=== PATIENT | male | born 1955 | race Caucasian/White ===

== ENCOUNTER 2016-12-14 16:37 | Inpatient (IN) | payer BC ==
[~2016-12-14] VITALS: Ht 166.4 cm; Wt 61.3 kg
[2016-12-14 18:58] VITALS: BP 149/84
[2016-12-14] MEDS ORDERED: LIPASE/AMYLASE/PROTEASE (PANCRELIPASE) 5,000 UNITS CAP PO PRN (22:00)
[2016-12-14] MEDS ORDERED: DIPHENOXYLATE/ATROPINE 2.5MG/0.025MG (LOMOTIL) TAB PO PRN (22:00)
[2016-12-14] MEDS ORDERED: SERTRALINE 100 MG (ZOLOFT) TAB PO ONE (22:30)
[2016-12-14] MEDS ORDERED: MIRTAZAPINE 15 MG (REMERON) TAB PO ONE (22:30)
[2016-12-14] MEDS ORDERED: MIRTAZAPINE 15 MG (REMERON) TAB ONE (22:36)
[2016-12-14] MEDS ORDERED: SERTRALINE 50 MG (ZOLOFT) TABLET ONE (22:37)
[2016-12-14] MEDS: HYDROcodone/APAP 5 MG/325 MG (LORTAB) TAB PO PRN (22:55)
[2016-12-14] MEDS: DIPHENOXYLATE/ATROPINE 2.5MG/0.025MG (LOMOTIL) TAB PO PRN (23:00)
[2016-12-15] MEDS: LEVOTHYROXINE 25 MCG (LEVOTHROID) TAB PO SCH (05:44)
[2016-12-15] MEDS: LEVOTHYROXINE 150 MCG (LEVOTHROID) TAB PO SCH (05:44)
[2016-12-15] MEDS: LACTOBACILLUS Acidoph/Bulgar (LACTINEX/FLORANEX) TAB PO SCH ×3 (05:44→18:31)
[2016-12-15 05:45] VITALS: BP 150/84
[2016-12-15 05:55] LABS: MEAN PLATELET VOLUME 9.6 FL (7.4-10.4); RED BLOOD COUNT 3.92 10^6/uL (4.35-5.85); RED CELL DISTRIBUTION WIDTH 15.4 % (10.0-14.5); WHITE BLOOD COUNT 7.6 10^3/uL (4.3-11.0)
[2016-12-15 06:14] LABS: ALANINE AMINOTRANSFERASE 42 U/L (0-55); ANION GAP 9 MMOL/L (5-14); ASPARTATE AMINO TRANSFERASE 61 U/L (5-34); BILIRUBIN,TOTAL 0.7 MG/DL (0.1-1.0); BLOOD UREA NITROGEN 5 MG/DL (7-18); BUN/CREATININE RATIO 7; CARBON DIOXIDE 21 MMOL/L (21-32); CHLORIDE 112 MMOL/L (98-107); CREATININE SERUM 0.71 MG/DL (0.60-1.30); GFR ESTIMATED > 60; GLUCOSE 67 MG/DL (70-105); POTASSIUM 4.1 MMOL/L (3.6-5.0); SODIUM 142 MMOL/L (135-145); TOTAL PROTEIN 5.8 G/DL (6.4-8.2)
[2016-12-15] MEDS: LIPASE/AMYLASE/PROTEASE (PANCRELIPASE) 5,000 UNITS CAP PO SCH ×3 (06:49→18:32)
[2016-12-15] MEDS: FERROUS SULF 325 MG (IRON) TAB PO SCH ×3 (06:49→18:32)
[2016-12-15] MEDS: PANTOPRAZOLE 40 MG (PROTONIX) TAB PO SCH (06:49)
--- NOTE | 2016-12-15 08:46 | ST Cognitive Linguistic Eval ---
Speech Evaluation-General Medical Diagnosis Debility, Weakness Onset Date: December 14, 2016 Therapy Diagnosis Therapy Diagnosis: Moderate Cognitive Impairment Precautions Precautions/Isolations: Fall Prevention, Standard Precautions Referral Referring Physician: Dr. Ancelmo Fulton Reason for Referral: Evaluation/Treatment Cognitive Evaluation Medical History Hepatitis C Reviewed History: Yes (Limited past medical history found following chart review.) Speech PLF-Current Status Prior Level of Function The patient was unable to provide prior level of function information to the clinician. Subjective The patient was recently admitted to [facility] with a diagnosis of debility and weakness. The patient was sleeping upon entrance. The patient required maximum verbal prompting from clinician for continued participation in the evaluation. The patient frequently stated he was "tired" or would "get up in a little bit." The patient demonstrated poor motivation and cooperation with this clinician. Language Eval: Auditory Comprehends Simple Yes/No Ques: Moderate (The patient provided limited responses to the clinician, often closing eyes and placing his head under the covers.) Indent/Objects Multiple Ramey: Functional Ident/Pics in Multiple Ramey: Functional Follows 1-Step Commands: Mild (Frequent repetition was required for accuracy of one-step commands. ) Follows General Conversations: Moderate Additional evaluation with increased participation will be necessary to fully assess receptive language versus the patient's poor participation and motivation. Language Eval: Verbal Language Completes Spontaneous Greeting: Functional Produces Auto, Serial Info: Functional Imitates Simple Words/Phrases: Functional Word Finding: Moderate (The patient repeated the same "s" word several times with different animals placed behind it ("stinkin' cat, stinkin' rat). ) Requests Basic Needs: Mild States Basic Personal Info: Moderate Additional evaluation with increased participation will be necessary to fully assess expressive language versus the patient's poor participation and motivation. Cognitive Patient Orientation The patient was oriented to month and name only. The patient stated the year was 1986, the date was the , the day of the week was Monday, and he was at [employer] in [place]. Objective Cognitive Domain Attention: Severe Memory: Moderate (The patient was unable to recall three single words following a five minute interval.) Problem Solving: Moderate The patient refused to participate in reading or writing portions of the evaluation. The patient placed glasses on towards the end of the evaluation, however, stated, "I just don't think I'm ready" when repeatedly asked by clinician to complete clock-drawing activity. Objective Impression The patient demonstrated moderate cognitive impairments in the areas of attention, memory, and problem solving. The patient demonstrated poor participation and motivation throughout the evaluation, therefore, results may be skewed by patient's deferment of exercises. Full assessments will continue with increased participation of patient. Communication/Social Cognition Comprehension: 2 Expression: 3 Social Interaction: 1 Problem Solvin Memory: 2 Speech Patient Assess Expression of Ideas/Wants: Frequently (2) Understanding V[place]al Content: Sometimes Understands(2) Brief Interview-Mental Status: Yes Repetition of Three Words: Two (2) Temporal Orientation: Year: Missed by more than 5 yrs (0) Temporal Orientation: Month: Accurate within 5 days(2) Temporal Orientation: Day: Incorrect or No Answer(0) Recall : Wear to say "Sock": No, could not recall (0) Recall : Color: Yes, after cueing (1) Recall : Bed: No, could not recall (0) Speech Short Term Goals Short Term Goals Short Term Goals 1. The patient will participate in a full evaluation of cognitive function and receptive/expressive language. 2. The patient will demonstrate 80% accuracy with orientation information with use of the provided external aid. 3. The patient will display 80% accuracy with simple, one-step commands ( provided verbally) with mild clinician verbal cueing. Time Frame-STG: One Week Speech Half-Way Goals Half-Way Goals 1. The patient will demonstrate increased cognitive skills for improved safety and function with ADL's in the least restrictive setting. Time Frame: Three Weeks Comprehension: 4 Expression: 4 Social Interaction: 4 Problem Solvin Memory: 3 Speech-Plan Treatment Plan Speech Therapy Treatment Plan: Continue Plan of Care Continue skilled speech pathology to target cognitive function and expressive/ receptive language skills. Treatment Duration: January 05, 2017 # of days/week Four to Five Visits Per Week: Four to Five Minutes/Day (M-F): 30 Rehab Potential: Guarded (Poor participation and motivation) Safety Risks/Education Teaching Recipient: Patient Teaching Methods: Discussion Response to Teaching: Reinforcement Needed Education Topics Provided: Results, Recommendations, Plan of Care Time Speech Therapy Time In: 08:23 Speech Therapy Time Out: 08:38 Total Billed Time: 15 Billed Treatment Time 1, KELSEY STAUFFER December 15, 2016 08:46
--- NOTE | 2016-12-15 09:00 | History & Physicial ---
History of Present Illness History of Present Illness Reason for visit/HPI Patient is confused. Patient states date is November 15, 1987 Date of Admission December 14, 2016 at 18:36 I consulted on this patient on 12/15/16 08:56 Attending Physician Feliciano Lima MD Admitting Physician Marta,Local Physician Consult Allergies and Home Medications Allergies Coded Allergies: Macrolide Antibiotics (Unverified Allergy, Unknown, 12/14/16) atorvastatin (Unverified Allergy, Unknown, 12/14/16) ezetimibe (Unverified Allergy, Unknown, 12/14/16) hydromorphone (Unverified Allergy, Unknown, 12/14/16) Past Bqsacpp-Deqrzk-Dfabxd Hx Patient Social History Alcohol Use: Denies Use Recreational Drug Use: No Smoking Status: Never a Smoker Physical Abuse Screen: No Sexual Abuse: No Recent Foreign Travel: No Contact w/other who traveled: No Recent Hopitalizations: Yes (AMS, falls, anemia) Recent Infectious Disease Expo: No Seasonal Allergies Seasonal Allergies: No Gastrointestinal Gastrointestinal Disorders: Pancreatitis, Chronic Diarrhea Musculoskeletal Musculoskeletal Disorders: Rheumatoid Arthritis Psychosocial Behavioral Health Disorders: Depression Blood Transfusions Adverse Reaction to a Blood Tr: No Family Medical History Family Hx: Cardiovascular disease 19 FATHER Dementia 19 FATHER Diabetes mellitus 19 FATHER Hypertension 19 FATHER 19 MOTHER Constitutional: other (Patient confused unable to know what the true for not a true is) Physical Exam Vital Signs Vital Sign - Last 12Hours 12/14/16 18:58 Temp 96.8 Pulse 85 Resp 20 B/P (MAP) 149/84 Pulse Ox 100 O2 Delivery Room Air Capillary Refill : General Appearance: No Apparent Distress, Thin Eyes: Bilateral Eye Normal Inspection HEENT: Normal ENT Inspection Neck: Normal Inspection Respiratory: Chest Non Tender, Lungs Clear, Normal Breath Sounds, No Accessory Muscle Use, No Respiratory Distress Cardiovascular: Regular Rate, Rhythm Gastrointestinal: Non Tender Assessment/Plan Assessment and Plan Fall and gait instability. Weakness. Confusion. Weight loss. Anemia. Right knee effusion. Tibial fracture. Hepatitis C. Chronic pancreatitis. Chronic diarrhea area Hypothyroid. Diabetes Problems: Clinical Quality Measures DVT/VTE Risk/Contraindication: Risk Factor Score Per Nursin RFS Level Per Nursing on Admit: 4+=Very High KUSHAL CRAVEN DO December 15, 2016 09:00
[2016-12-15] MEDS: HYDROXYCHLOROQUINE 200 MG (PLAQUENIL) TAB PO SCH ×2 (09:15→20:35)
[2016-12-15] MEDS: ASPIRIN 81 MG CHEW (CHILDREN'S ASA) PO SCH (09:15)
[2016-12-15] MEDS ORDERED: LACT1TAB25 PO (09:25)
[2016-12-15] MEDS ORDERED: HYDR200T46 PO (09:25)
[2016-12-15] MEDS ORDERED: DRON2.5C11 PO (09:25)
[2016-12-15] MEDS ORDERED: LIPA1CAP25 PO ×2 (09:25)
[2016-12-15] MEDS ORDERED: HYDR-3812 PO (09:25)
[2016-12-15] MEDS ORDERED: SERT25TA5 PO (09:25)
[2016-12-15] MEDS ORDERED: LEVO175T5 PO (09:25)
[2016-12-15] MEDS ORDERED: MIRT15TA6 PO (09:25)
[2016-12-15] MEDS ORDERED: ASPI-983 PO (09:25)
[2016-12-15] MEDS ORDERED: WHEA1POW6 PO (09:25)
[2016-12-15] MEDS ORDERED: DIPH1TAB25 PO (09:25)
[2016-12-15] MEDS ORDERED: OMEP40CA36 PO (09:25)
[2016-12-15] MEDS: DIPHENOXYLATE/ATROPINE 2.5MG/0.025MG (LOMOTIL) TAB PO SCH ×2 (10:31→20:35)
[2016-12-15] MEDS: DRONABINOL 2.5 MG (MARINOL) CAP PO SCH (10:31)
--- NOTE | 2016-12-15 12:01 | Physical Therapy Evaluation ---
PT Evaluation-General Medical Diagnosis Admission Date December 14, 2016 at 18:36 Medical Diagnosis: Debility, Weakness Onset Date: December 14, 2016 Therapy Diagnosis Therapy Diagnosis: impaired mobility, strength, endurance Height/Weight Height (Feet): 5 Height (Inches): 5.50 Weight (Pounds): 135 Weight (Ounces): 2.0 Precautions Precautions/Isolations: Fall Prevention, Standard Precautions Weight Bear Status Weight Bearing Restriction: Touch Toe Bearing Location Restriction: R LE Referral Physician: Clarence Reason for Referral: Evaluation/Treatment Medical History Pertinent Medical History: DM, GERD, HTN, Hypothroidism, Rheumatoid Arthritis Additional Medical History hiatal hernia, appetite loss, right knee effusion, chronic pancreatitis, surg ( colonoscopy, appendectomy, knee arthroplasty) Current History right lower extremity TTWB, has non-displaced tibial plateau fracture Reviewed History: Yes (Limited past medical history found following chart review.) Social History Home: Single Level Current Living Status: Spouse Entry Into Home: Level Entry Prior/Core FIM Prior Level of Function Functional [place] Measure 0=Not Assessed/NA 4=Minimal Assistance 1=Total Assistance 5=Supervision or Setup 2=Maximal Assistance 6=Modified [place] 3=Moderate Assistance 7=Complete [place] Bed Mobility: 6 Transfers (B,C,W/C) (FIM): 6 Gait: 6 Patient states he was using a rolling walker pre morbid. PT Evaluation-Current Subjective Patient in bed pre tx, agrees to PT, has pain of 6/10 in right leg. Patient has a knee immobilizer on right leg. Pt/Family Goals to be independent at home. Objective Patient Orientation: Person, Confused Attachments: Knee Immobilizer ROM/Strength ROM Lower Extremities left lower extremity WNL, right not tested Integumentary/Posture Bowel Incontinence: No Neuromuscular (Tone, Coordination, Reflexes) patient seems to have diminished coordination in both lower extremities minimally Sensory Vision: Functional Hearing: Functional Sensation Right Lower Extremit: Intact Sensation Left Lower Extremity: Intact Transfers Functional [place] Measure 0=Not Assessed/NA 4=Minimal Assistance 1=Total Assistance 5=Supervision or Setup 2=Maximal Assistance 6=Modified [place] 3=Moderate Assistance 7=Complete IndependenceIRFPAI Quality Coding Scale 6 Independent with activity with or without an assistive device 5 Patient requires set up or clean up by helper. Patient completes activity by themselves 4 Supervision or touching assist (CGA). Beccaria provide cues , steadying assist 3 The helper provides less than half the effort to complete the activity 2 The helper provides more than half the effort to complete the activity 1 Dependent. The helper does all the effort to complete an activity 7 Patient refused to complete or attempt activity 9 The patient did not perform the activity before the current illness or injury 88 Not attempted due to Medical conditions or safety concerns Transfers (B, C, W/C) (FIM): 2 Scootin Rollin Roll Left to Right (QC): 4 Supine to/from Sit: 3 Sit to/from Stand: 2 bed t/f WC(FIM only if WC use): 2 Sit to Lying (QC): 2 Lying to Sitting/Side of Bed(Q: 2 Sit to Stand (QC): 2 Chair/Qzp-yh-Yoxvb Xfer(QC): 2 Car Transfer (QC): 88 Patient performs bed mobility with SBA except for supine <-> sit which is mod assist, he can perform a stand pivot transfer and sit to stand with min assist but needs max assist when fatigued (and he fatigues easily), patient is not compliant with his weight bearing status, needs cues for safety and hand placement Gait Does the Patient Walk?: Yes Mode of Locomotion: Walk Anticipated Mode of Locomotion: Walk Gait (FIM): 1 Walk 10 feet (QC): 88 Walk 50 ft with 2 Turns(QC): 88 Walk 150 ft (QC): 88 Walking 10ft/uneven surface-QC: 88 Distance: 5' Gait Level of Assist: 4 Gait Persons Needed: 1 Gait Assistive Device: FWW Comments/Gait Description Patient is not compliant with his weight bearing status even with max cues. Wheelchair Training Does the Pt Use a Wheelchair?: Yes Wheelchair (FIM): 5 Distance: 150'x2 Wheelchair Level of Assist: 5 Wheel 50 ft with 2 turns (QC): 4 Wheel 150 ft (QC): 4 Type of Wheelchair: Manual cues for direction, uses left leg and both arms, often needs cues on where to put his hands due to confusion Stairs Stairs (FIM): 0 1 Step (curb) (QC): 88 4 Steps (QC): 88 12 Steps (QC): 88 If not tested on admit;explain Patient did not perform stairs due to weakness and non-compliance with weight bearing status Balance Sitting Static: Good Sitting Dynamic: Good Standing Static: Poor Standing Dynamic: Poor Picking up an Object (QC): 88 Assessment/Needs Patient has impaired mobility, strength, balance, endurance, he is not compliant with his weight bearing status. Patient complained about neck pain during treatment and kept his neck flexed and head forward. Rehab Potential: Fair PT Short Term Goals Short Term Goals Time Frame: December 22, 2016 Transfers (B,C,W/C) (FIM): 4 Gait (FIM): 1 Gait Distance Comment: 20' Gait Level of Assist: 4 Gait Assistive Device: FWW PT Fpc Goals Manipulative Therapy Specialist Goals PT Manipulative Therapy Specialist Goals Time Frame: January 05, 2017 Transfers (B,C,W/C) (FIM): 5 Sit to Lying (QC): 4 Lying-Sitting on Side/Bed(QC): 4 Sit to Stand (QC): 4 Rollin Roll Left to Right (QC): 4 Chair/Gce-fi-Dysld Xfer(QC): 4 Car Transfer (QC): 3 Gait (FIM): 1 Distance: 30' Walk 10 feet (QC): 4 Walk 10ft-Uneven Surface(QC): 88 Walk 50ft with 2 Turns (QC): 88 Walk 150 ft (QC): 88 Gait Level of Assist: 4 (CGA) Gait Assistive Device: FWW Stairs (FIM): 1 # of Steps: 1 1 Step (curb) (QC): 4 4 Steps (QC): 88 12 Steps (QC): 88 Stairs Level Of Assist: 4 Picking up an Object (QC): 88 PT Plan Problem List Problem List: Activity Tolerance, Functional Strength, Safety, Balance, Gait, Transfer, Bed Mobility, ROM Treatment/Plan Treatment Plan: Continue Plan of Care Treatment Plan: Bed Mobility, Education, Functional Activity Rima, Functional Strength, Group Therapy, Gait, Safety, Therapeutic Exercise, Transfers Treatment Duration: January 05, 2017 # of days/week 5-6 Visits Per Week: 10-11 Minutes/Day (M-F): 60-90 Minutes/Day (Sat/Chaves): 15-30 Pt/Family Agrees w/Plan: Yes Safety Risks/Education Patient Education: Gait Training, Transfer Techniques, Correct Positioning, W/ C Management, Safety Issues Teaching Recipient: Patient Teaching Methods: Demonstration, Discussion Response to Teaching: Reinforcement Needed Discharge Recommendations Plan Patient will perform bed mobility and transfer training, balance and endurance training, functional strengthening, stair training, gait training, and education to improve functional mobility and independence at home. Therapy D/C Recommendations: Home w/ Family Support, Assisted (TCU/NH) Time/GCodes Time In: 900 Time Out: 1000 Total Billed Treatment Time: 60 Total Billed Treatment 1 visit EVL 15' FA 15' GT 15' [facility] 15' DOLORES MACEDO PT December 15, 2016 12:01
[2016-12-15] MEDS: BENEFIBER (FROM DIETARY) DOCUMENTATION PURPOSE ONLY PO SCH ×2 (12:23→20:39)
[2016-12-15] MEDS: HYDROcodone/APAP 5 MG/325 MG (LORTAB) TAB PO PRN ×2 (12:26→18:32)
--- NOTE | 2016-12-15 15:24 | Physical Therapy Daily Note ---
PT Daily Note-Current Subjective Patient just complete with OT and agrees to PT. Patient reports he is very fatigued. Pain Numeric Pain Scale: 5-Moderate Pain Location: Soft Tissue Location Body Site: Neck Pain Description: Ache (issued cervical collar to assist with cervical extension) Appearance severe cervical flexion due to weakness Mental Status Patient Orientation: Person Transfers Functional [place] Measure 0=Not Assessed/NA 4=Minimal Assistance 1=Total Assistance 5=Supervision or Setup 2=Maximal Assistance 6=Modified [place] 3=Moderate Assistance 7=Complete IndependenceIRFPAI Quality Coding Scale 6 Independent with activity with or without an assistive device 5 Patient requires set up or clean up by helper. Patient completes activity by themselves 4 Supervision or touching assist (CGA). [place] provide cues , steadying assist 3 The helper provides less than half the effort to complete the activity 2 The helper provides more than half the effort to complete the activity 1 Dependent. The helper does all the effort to complete an activity 7 Patient refused to complete or attempt activity 9 The patient did not perform the activity before the current illness or injury 88 Not attempted due to Medical conditions or safety concerns Transfers (B, C, W/C) (FIM): 4 Scootin Rollin Roll Left to Right (QC): 4 Supine to/from Sit: 4 Sit to/from Stand: 4 Sit to Lying (QC): 4 Sit to Stand (QC): 4 Chair/Nfp-ud-Bfzco Xfer(QC): 4 Patient performed sit to topographical engineer parallel bars x 4 sets with standing on left LE and TTWB right LE with knee immobilizer in place. Patient has difficulty complying with TTWB right LE. Weight Bearing Weight Bearing Restriction: Touch Toe Bearing Location Restriction: R LE Wheelchair Training Does the Pt Use a Wheelchair?: Yes Wheelchair (FIM): 4 Wheelchair Distance: 3=150 ft Distance: 150' Wheelchair Level of Assist: 4 Type of Wheelchair: Manual patient requires skilled verbal instruction for w/c mobility and direction Exercises Seated Therapy Exercises: Sit to stand Seated Reps: 4 Assessment Patient is able to attend to tasks with cervical collar in place. PT to increase activity as tolerated by patient. Patient is limited with severe weakness and muscle wasting. PT Short Term Goals Short Term Goals Time Frame: December 22, 2016 Transfers (B,C,W/C) (FIM): 4 Gait (FIM): 1 Gait Distance Comment: 20' Gait Level of Assist: 4 Gait Assistive Device: FWW Wheelchair Distance: 150'x2 PT Retail Sales Consultant Goals Retail Sales Consultant Goals PT Retail Sales Consultant Goals Time Frame: January 05, 2017 Transfers (B,C,W/C) (FIM): 5 Sit to Lying (QC): 4 Lying-Sitting on Side/Bed(QC): 4 Sit to Stand (QC): 4 Rollin Roll Left to Right (QC): 4 Chair/Doi-hj-Hacrb Xfer(QC): 4 Car Transfer (QC): 3 Gait (FIM): 1 Distance: 30' Walk 10 feet (QC): 4 Walk 10ft-Uneven Surface(QC): 88 Walk 50ft with 2 Turns (QC): 88 Walk 150 ft (QC): 88 Gait Level of Assist: 4 (CGA) Gait Assistive Device: FWW Stairs (FIM): 1 # of Steps: 1 1 Step (curb) (QC): 4 4 Steps (QC): 88 12 Steps (QC): 88 Stairs Level Of Assist: 4 Picking up an Object (QC): 88 PT Plan Treatment/Plan Treatment Plan: Continue Plan of Care Treatment Plan: Bed Mobility, Education, Functional Activity Rima, Functional Strength, Group Therapy, Gait, Safety, Therapeutic Exercise, Transfers Treatment Duration: January 05, 2017 Visits Per Week: 10-11 Minutes/Day (M-F): 60-90 Minutes/Day (Sat/Chaves): 15-30 Time/GCodes Time In: 1445 Time Out: 1515 Total Billed Treatment Time: 30 Total Billed Treatment 1 visit EX 15 min HELENA 15 min JOSÉ LUIS VÁSQUEZ PT December 15, 2016 15:24
--- NOTE | 2016-12-15 16:36 | Occupational Therapy Eval ---
OT Evaluation-General/PLF Medical Diagnosis Admission Date December 14, 2016 at 18:36 Medical Diagnosis: Debility, Weakness Onset Date: Dec 03, 2016 Therapy Diagnosis Therapy Diagnosis: decr self care, decr funct mobility, weakness, decr activity tolerance Height/Weight Height (Feet): 5 Height (Inches): 5.50 Weight (Pounds): 135 Weight (Ounces): 2.0 Precautions Precautions/Isolations: Fall Prevention, Standard Precautions Safety Interventions: Bed Exit Alarm, Reorient-Attempt, Reorient-PRN Weight Bear Status Weight Bearing Restriction: Touch Toe Bearing Location Restriction: R LE Referral Physician: Clarence Referral Reason: Evaluation/Treatment Medical History Pertinent Medical History: DM, GERD, HTN, Hypothroidism, Rheumatoid Arthritis Additional Medical History hiatal hernia, appetite loss, right knee effusion, chronic pancreatitis, surg ( colonoscopy, appendectomy, knee arthroplasty). Weight loss of 50# over 6 months. Anemia. Multiple falls. Hepatitis A or C. Depression Current History right lower extremity TTWB, has non-displaced tibial plateau fracture. Recently at [facility] in [place]. may have multiple myeloma. Brain atrophy per family report in medical records Reviewed History: Yes Social History Home: Single Level Current Living Status: Spouse Entry Into Home: Level Entry ADL-Prior Level of Function ADL PLOF Comments Pt indicated that he was independent with ADLs prior to hospitalization. 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 He is oriented to name and only DME/Equipment Comments Unknown Occupation: retired from railroad OT Current Status Subjective Pt seen in room, up in bed, agreeable to OT. Pain reported 6/10 in R knee but not described. Appearance Alert, cooperative, confused Mental Status/Objective Patient Orientation: Person (name and ), Time (thought it was 1986) Attachments: Saline Lock, Other-See Comments (R leg immobilizer) Current Glasses/Contacts: Yes Hearing Aids: No ("I need them, though") Dentures/Partials: No Hand Dominance: Right Upper Extremity ROM Grossly WFL. Able to raise both arms up over head but unable to lift arms to comb hair Upper Extremity Strength Grossly 4/5 bilat Edema: No edema observed in UEs ADL-Treatment ADL-Current Skilled analysis of movement and sequencing, need for supervision. pt attempted to get out of bed over the bed rail, even with bed alarm going off. Has telesitter as well. Functional [place] Measure 0=Not Assessed/NA 4=Minimal Assistance 1=Total Assistance 5=Supervision or Setup 2=Maximal Assistance 6=Modified [place] 3=Moderate Assistance 7=Complete IndependenceIRFPAI Quality Coding Scale 6 Independent with activity with or without an assistive device 5 Patient requires set up or clean up by helper. Patient completes activity by themselves 4 Supervision or touching assist (CGA). [place] provide cues , steadying assist 3 The helper provides less than half the effort to complete the activity 2 The helper provides more than half the effort to complete the activity 1 Dependent. The helper does all the effort to complete an activity 7 Patient refused to complete or attempt activity 9 The patient did not perform the activity before the current illness or injury 88 Not attempted due to Medical conditions or safety concerns Eating (FIM): 5 (Pt report setup) Eating (QC): 5 (Pt report setup) Grooming (FIM): 4 (Difficulty/uunable to get hands up over head to comb hair. Brushed teeth with setup/supervision. Washed face and hands during bath. Did not shave) Oral Hygiene (QC): 4 (Supervision) Bathing (FIM): 5 (Supervision, cues. Washed and dried all parts, with prompting. started at feet and worked up. Washed bottom by bridging on bed. Sponge bath) Shower/Bathe Self (QC): 4 (Supervision) Upper Body Dressing (FIM): 4 (Needed skilled cues and a little help getting shirt over head. Able to sit EOB once feet were on floor. Pt laid back down at least twice during dressing to rest) Upper Body Dressing (QC): 3 (min assist) Lower Body Dressing (FIM): 3 (Help to get feet into pants but he pulled them up. Help to get pants up over hips. Got socks off but couldn't get them back on. ) Lower Body Dressing (QC): 3 (Got slipper socks off but could not put them back on. ) On/Off Footwear (QC): 3 Toileting (FIM): 3 (Per nursing report. COuld use urinal but not empty it) Toileting Hygiene (QC): 3 (per nursing report) Transfers (B, C, W/C) (FIM): 3 (Mod assist. Skilled cues for sequencing supine to sit and to EOB. Cues for scooting up in bed. ) Toilet/Commode Transfer (FIM): 3 (per nursing report) Toilet Transfer (QC): 3 (Per nursing report) Other Treatments Pt left up in bed, alarm on, all needs met. Education OT Patient Education: Modified ADL techniques, Purpose of tx/functional activities, Rehab process, Safety issues, Transfer techniques Teaching Recipient: Patient Teaching Methods: Demonstration, Discussion Response to Teaching: Verbalize Understanding, Return Demonstration, Reinforcement Needed OT Short Term Goals Short Term Goals Time Frame: December 29, 2016 Upper Body Dressing(FIM): 5 Lower Body Dressing(FIM): 4 Toileting(FIM): 4 Transfers (B,C,W/C) (FIM): 4 Toilet/Commode Transfer(FIM): 4 Additional Short Term Goals: 2-Verbalize Understanding, 3-ImproveStrength/Rima 1=Demonstrate adherence to instructed precautions during ADL tasks. 2=Patient will verbalize/demonstrate understanding of assistive devices/ modifications for ADL. 3=Patient will improve strength/tolerance for activity to enable patient to perform ADL's. OT Retirement Goals Retirement Goals Time Frame: January 05, 2017 Eating (FIM): 6 Eating (QC): 6 Groomin Oral Hygiene (QC): 6 Bathing(FIM): 5 Shower/Bathe Self (QC): 5 Upper Body Dressing(FIM): 6 Upper Body Dressing (QC): 6 Lower Body Dressing(FIM): 6 Lower Body Dressing (QC): 6 On/Off Footwear (QC): 6 Toileting(FIM): 6 Toileting Hygiene (QC): 6 Toilet/Commode Transfer(FIM): 6 Toilet/Commode Transfer (QC): 6 Shower Transfer(FIM): 5 Comprehension(FIM): 4 Expression (FIM): 4 Social Interaction(FIM): 4 Problem Solving(FIM): 3 Memory(FIM): 3 Additional Goals: 2-Verbalize Understanding, 3-ImproveStrength/Rima 1=Demonstrate adherence to instructed precautions during ADL tasks. 2=Patient will verbalize/demonstrate understanding of assistive devices/ modifications for ADL. 3=Patient will improve strength/tolerance for activity to enable patient to perform ADL's. OT Education/Plan Problem List/Assessment Assessment: Decreased Activ Tolerance, Decreased Safety Aware, Decreased UE Strength, Dependent Transfers, Impaired Funct Balance, Impaired Self-Care Skills Pt would benefit from skilled OT to increase his independence in basic self care to allow him to safely return home to live with family. Discharge Recommendations Plan/Recommendations: Continue POC Barriers to Progress problem-solving, safety awareness Target Placement home Treatment Plan/Plan of Care Treatment,Training & Education: Yes Patient would benefit from OT for education, treatment and training to promote independence in ADL's, mobility, safety and/or upper extremity function for ADL' s. Plan of Care: ADL Retraining, Functional Mobility, Group Exercise/Act as Ind ( education, exercise, socialization, activity tolerance, memory, problem solving) , UE Funct Exercise/Act, UE Neuromus Re-Ed/Coord Treatment Duration: January 05, 2017 # of days/week 5-6 Visits Per Week: 10-11 Minutes/Day (M-F): 75-90 Minutes/Day (Sat/Chaves): PRN Agreement: Yes Rehab Potential: Fair Time/GCodes Start Time: 10:45 Stop Time: 11:45 Total Time Billed (hr/min): 60 Billed Treatment Time visit, 15 minutes evaluation moderate intensity, 45 minutes ADL CHRYSTAL FREEMAN OT December 15, 2016 16:36
--- NOTE | 2016-12-15 17:09 | Occupational Ther Daily Note ---
OT Current Status-Daily Note Subjective Pt seen in room, up in bed, agreeable to OT. No pain mentioned Appearance Alert, cooperative Mental Status/Objective Patient Orientation: Person Functional [place] Measure 0=Not Assessed/NA 4=Minimal Assistance 1=Total Assistance 5=Supervision or Setup 2=Maximal Assistance 6=Modified [place] 3=Moderate Assistance 7=Complete [place] ADL-Treatment Pt wanted to order lunch. He decided that he would get majo food cake and chocolate pudding. 5 minutes later he could not recall what he was going to order. After reorientation, he called and ordered devils food cake and chocolate ice cream. Functional [place] Measure 0=Not Assessed/NA 4=Minimal Assistance 1=Total Assistance 5=Supervision or Setup 2=Maximal Assistance 6=Modified [place] 3=Moderate Assistance 7=Complete IndependenceIRFPAI Quality Coding Scale 6 Independent with activity with or without an assistive device 5 Patient requires set up or clean up by helper. Patient completes activity by themselves 4 Supervision or touching assist (CGA). [place] provide cues , steadying assist 3 The helper provides less than half the effort to complete the activity 2 The helper provides more than half the effort to complete the activity 1 Dependent. The helper does all the effort to complete an activity 7 Patient refused to complete or attempt activity 9 The patient did not perform the activity before the current illness or injury 88 Not attempted due to Medical conditions or safety concerns Transfers (B, C, W/C) (FIM): 4 (Min assist transfer to w/c but needed cues to try to maintain WB status. FWW. ) Other Treatment pt assisted with propelling himself to gym, per w/c. He was able to do a total of 2 minutes bilat UE ex on arm bike but no longer than 45 seconds at a time and could not hold his head up for longer than 30-45 seconds. Required a couple minutes rest between in order to pick head up. Switched to tabletop activity for strengthening. He was able to stack cones bilat and keep head up long enough to complete activity, at tabletop level, x 3 repetitions, with no additional weights on arms. Required recovery periods between reps. care transferred to PT. OT Short Term Goals Short Term Goals Time Frame: December 29, 2016 Upper Body Dressing(FIM): 5 Lower Body Dressing(FIM): 4 Toileting(FIM): 4 Transfers (B,C,W/C) (FIM): 4 Toilet/Commode Transfer(FIM): 4 Additional Short Term Goals: 2-Verbalize Understanding, 3-ImproveStrength/Rima 1=Demonstrate adherence to instructed precautions during ADL tasks. 2=Patient will verbalize/demonstrate understanding of assistive devices/ modifications for ADL. 3=Patient will improve strength/tolerance for activity to enable patient to perform ADL's. OT Recruiter Manager Goals Detention Goals Time Frame: January 05, 2017 Eating (FIM): 6 Eating (QC): 6 Groomin Oral Hygiene (QC): 6 Bathing(FIM): 5 Shower/Bathe Self (QC): 5 Upper Body Dressing(FIM): 6 Upper Body Dressing (QC): 6 Lower Body Dressing(FIM): 6 Lower Body Dressing (QC): 6 On/Off Footwear (QC): 6 Toileting(FIM): 6 Toileting Hygiene (QC): 6 Toilet/Commode Transfer(FIM): 6 Toilet/Commode Transfer (QC): 6 Shower Transfer(FIM): 5 Comprehension(FIM): 4 Expression (FIM): 4 Social Interaction(FIM): 4 Problem Solving(FIM): 3 Memory(FIM): 3 Additional Goals: 2-Verbalize Understanding, 3-ImproveStrength/Rima 1=Demonstrate adherence to instructed precautions during ADL tasks. 2=Patient will verbalize/demonstrate understanding of assistive devices/ modifications for ADL. 3=Patient will improve strength/tolerance for activity to enable patient to perform ADL's. OT Education/Plan Problem List/Assessment Pt would benefit from skilled OT to increase his independence in basic self care to allow him to safely return home to live with family. Discharge Recommendations Plan/Recommendations: Continue POC Treatment Plan/Plan of Care Patient would benefit from OT for education, treatment and training to promote independence in ADL's, mobility, safety and/or upper extremity function for ADL' s. Plan of Care: ADL Retraining, Functional Mobility, Group Exercise/Act as Ind ( education, exercise, socialization, activity tolerance, memory, problem solving) , UE Funct Exercise/Act, UE Neuromus Re-Ed/Coord Treatment Duration: January 05, 2017 Visits Per Week: 10-11 Minutes/Day (M-F): 75-90 Minutes/Day (Sat/Chaves): PRN Agreement: Yes Rehab Potential: Fair Time/GCodes Start Time: 14:00 Stop Time: 14:30 Total Time Billed (hr/min): 30 Billed Treatment Time visit, 30 minutes exercise CHRYSTAL FREEMAN OT December 15, 2016 17:09
[2016-12-15 18:00] VITALS: BP 129/76
[2016-12-15] MEDS: MIRTAZAPINE 15 MG (REMERON) TAB PO SCH (20:35)
[2016-12-15] MEDS: SERTRALINE 50 MG (ZOLOFT) TABLET PO SCH (20:36)
[2016-12-16] MEDS: HYDROcodone/APAP 5 MG/325 MG (LORTAB) TAB PO PRN ×3 (01:34→19:38)
[2016-12-16 05:00] VITALS: BP 124/78
[2016-12-16] MEDS: PANTOPRAZOLE 40 MG (PROTONIX) TAB PO SCH (05:54)
[2016-12-16] MEDS: LEVOTHYROXINE 150 MCG (LEVOTHROID) TAB PO SCH (05:54)
[2016-12-16] MEDS: LACTOBACILLUS Acidoph/Bulgar (LACTINEX/FLORANEX) TAB PO SCH ×3 (05:54→17:07)
[2016-12-16] MEDS: LEVOTHYROXINE 25 MCG (LEVOTHROID) TAB PO SCH (05:54)
[2016-12-16] MEDS: FERROUS SULF 325 MG (IRON) TAB PO SCH ×3 (05:54→17:06)
[2016-12-16] MEDS: LIPASE/AMYLASE/PROTEASE (PANCRELIPASE) 5,000 UNITS CAP PO SCH ×3 (05:54→17:06)
[2016-12-16 06:18] LABS: MEAN PLATELET VOLUME 10.2 FL (7.4-10.4); RED BLOOD COUNT 3.18 10^6/uL (4.35-5.85); RED CELL DISTRIBUTION WIDTH 15.5 % (10.0-14.5); WHITE BLOOD COUNT 5.9 10^3/uL (4.3-11.0)
[2016-12-16 06:32] LABS: ALANINE AMINOTRANSFERASE 36 U/L (0-55); ALBUMIN 1.7 G/DL (3.2-4.5); ANION GAP 5 MMOL/L (5-14); ASPARTATE AMINO TRANSFERASE 51 U/L (5-34); BILIRUBIN,TOTAL 0.6 MG/DL (0.1-1.0); BLOOD UREA NITROGEN 6 MG/DL (7-18); BUN/CREATININE RATIO 9; CALCIUM 8.6 MG/DL (8.5-10.1); CARBON DIOXIDE 24 MMOL/L (21-32); CHLORIDE 112 MMOL/L (98-107); GFR ESTIMATED > 60; GLUCOSE 74 MG/DL (70-105); POTASSIUM 3.6 MMOL/L (3.6-5.0); SODIUM 141 MMOL/L (135-145)
[2016-12-16] MEDS: DIPHENOXYLATE/ATROPINE 2.5MG/0.025MG (LOMOTIL) TAB PO PRN (08:37)
[2016-12-16] MEDS: DRONABINOL 2.5 MG (MARINOL) CAP PO SCH (08:37)
[2016-12-16] MEDS: ASPIRIN 81 MG CHEW (CHILDREN'S ASA) PO SCH (08:37)
[2016-12-16] MEDS: HYDROXYCHLOROQUINE 200 MG (PLAQUENIL) TAB PO SCH ×2 (08:37→20:45)
[2016-12-16] MEDS: DIPHENOXYLATE/ATROPINE 2.5MG/0.025MG (LOMOTIL) TAB PO SCH ×2 (08:38→20:45)
[2016-12-16] MEDS: BENEFIBER (FROM DIETARY) DOCUMENTATION PURPOSE ONLY PO SCH ×3 (08:39→20:53)
--- NOTE | 2016-12-16 08:42 | Progress Note (SOAP) ---
Subjective Subjective/Events-last exam Patient complaining of pain in the right leg. Confusion. Hepatitis C. Patient to be evaluated for Alzheimer's. Objective Exam Vital Signs Date Time Temp Pulse Resp B/P (MAP) Pulse Ox O2 Delivery O2 Flow Rate FiO2 12/16/16 05:00 97.5 77 20 124/78 98 Room Air 12/15/16 18:00 97.0 83 14 129/76 96 I & O 12/16/16 07:00 Intake Total 1150 ml Output Total 1950 ml Balance -800 ml Capillary Refill : General Appearance: No Apparent Distress, Thin Neck: Full Range of Motion, Normal Inspection Respiratory: Chest Non Tender, No Accessory Muscle Use, No Respiratory Distress Cardiovascular: Regular Rate, Rhythm, No Murmur Results Lab Laboratory Tests 12/16/16 05:47 Laboratory Tests 12/15/16 16:03: Glucometer 127H 12/16/16 05:47: White Blood Count 5.9, Red Blood Count 3.18L, Hemoglobin 9.0L, Hematocrit 27L, Mean Corpuscular Volume 86, Mean Corpuscular Hemoglobin 28, Mean Corpuscular Hemoglobin Concent 33, Red Cell Distribution Width 15.5H, Platelet Count 289, Mean Platelet Volume 10.2, Sodium Level 141, Potassium Level 3.6, Chloride Level 112H, Carbon Dioxide Level 24, Anion Gap 5, Blood Urea Nitrogen 6L, Creatinine 0.70, Estimat Glomerular Filtration Rate > 60, BUN/Creatinine Ratio 9 , Glucose Level 74, Calcium Level 8.6, Total Bilirubin 0.6, Aspartate Amino Transf (AST/SGOT) 51H, Alanine Aminotransferase (ALT/SGPT) 36, Alkaline Phosphatase 147H, Total Protein 5.0L, Albumin 1.7L Assessment/Plan Assessment/Plan Assess & Plan/Chief Complaint Confusion. Hepatitis C. Right leg pain Clinical Quality Measures DVT/VTE Risk/Contraindication: Risk Factor Score Per Nursin RFS Level Per Nursing on Admit: 4+=Very High KUSHAL CRAVEN DO December 16, 2016 08:41
--- NOTE | 2016-12-16 09:36 | Speech Therapy Daily Note ---
Speech Daily Progress Note Subjective The patient was seated upright in bed upon entrance. The patient greeted the clinician appropriately and was agreeable to the cognitive treatment session. The patient continues to demonstrate poor participation and motivation. Moderate clinician verbal prompting was required for continued cooperation throughout therapy on this date. Objective The [place] Cognitive Assessment (MoCA Version One) was provided to the patient for continued cognitive evaluation. Results are as follows: - Visuospatial/Executive: The patient was unable to complete trail-making activity. The patient demonstrated mild difficulty with cube copying and was able to draw the contour of a clock face, however, was unable to place the numbers correctly or the time. - Naming: The patient was able to name three of three pictures, independently. - Memory: The patient was unable to recall five single words immediately or following a five minute delay. - Attention: The patient demonstrated poor attention, stating, "I can't concentrate." The patient was able to repeat five digits and identify a specific letter, however, was unable to complete serial seven subtraction. - Language: The patient was able to repeat short phrases. The patient demonstrated moderate word-finding difficulties, naming two 'f' words within a one minute time frame. - The patient was oriented to year and location, only. The patient demonstrated a score of +15/30 correlating to a moderate cognitive impairment. Assessment Assessment Current Status: Fair Progress Treatment Plan Continue Plan of Care Communication Comprehension: 2 Expression: 3 Social Cognition Social Interaction: 4 Problem Solvin Memory: 2 Speech Short Term Goals Short Term Goals Short Term Goals 1. The patient will participate in a full evaluation of cognitive function and receptive/expressive language. MET 12/16/2016 2. The patient will demonstrate 80% accuracy with orientation information with use of the provided external aid. 3. The patient will display 80% accuracy with simple, one-step commands ( provided verbally) with mild clinician verbal cueing. 4. The patient will demonstrate 80% accuracy with structured word-finding tasks. Time Frame-STG: One Week Speech Chcf Goals Die Mounter Goals 1. The patient will demonstrate increased cognitive skills for improved safety and function with ADL's in the least restrictive setting. Time Frame: Three Weeks Comprehension: 4 Expression: 4 Social Interaction: 4 Problem Solvin Memory: 3 Speech-Plan Treatment Plan Speech Therapy Treatment Plan: Continue Plan of Care Continue skilled speech pathology intervention for improved cognitive function. Treatment Duration: January 05, 2017 # of days/week Four to five. Visits Per Week: Four to Five Minutes/Day (M-F): 30 Rehab Potential: Fair Safety Risks/Education Teaching Recipient: Patient Teaching Methods: Discussion Response to Teaching: Reinforcement Needed Education Topics Provided: Results, Plan of Care Time Speech Therapy Time In: 08:00 Speech Therapy Time Out: 08:30 Total Billed Time: 30 Billed Treatment Time 1MARYCHUY ELIZABETH ST December 16, 2016 09:36
--- NOTE | 2016-12-16 09:56 | Physical Therapy Daily Note ---
PT Daily Note-Current Subjective Pt. c/o he is so nauseous and has such pain he cant eat and has no appetite. Agrees to movement and up in chair. States that we are at [address] in [place]. Pain Numeric Pain Scale: 7 Location: Left Location Body Site: Thigh Pain Description: Ache Appearance keeps head hanging down, soft collar applied as per PTs initiation yesterday Transfers Functional [place] Measure 0=Not Assessed/NA 4=Minimal Assistance 1=Total Assistance 5=Supervision or Setup 2=Maximal Assistance 6=Modified [place] 3=Moderate Assistance 7=Complete IndependenceIRFPAI Quality Coding Scale 6 Independent with activity with or without an assistive device 5 Patient requires set up or clean up by helper. Patient completes activity by themselves 4 Supervision or touching assist (CGA). [place] provide cues , steadying assist 3 The helper provides less than half the effort to complete the activity 2 The helper provides more than half the effort to complete the activity 1 Dependent. The helper does all the effort to complete an activity 7 Patient refused to complete or attempt activity 9 The patient did not perform the activity before the current illness or injury 88 Not attempted due to Medical conditions or safety concerns Transfers (B, C, W/C) (FIM): 4 Scootin Rollin Supine to/from Sit: 4 Sit to/from Stand: 4 Bed to/from Chair: 4 Weight Bearing Weight Bearing Restriction: Touch Toe Bearing Gait Training Does the Patient Walk?: Yes Gait (FIM): 1 Distance (FIM): 1=up to 49 ft (10ftx4) Gait Level of Assist: 3 Gait Persons Needed: 1 Gait Assistive Device: FWW Exercises Supine Ex: Ankle pumps, Quad Set, Rolling, Glut sets, Heel Slides, Short Arc Quads, Straight leg raise (with assist), Hip abd/add Seated Therapy Exercises: Ankle pumps, Sit to stand, Long arc quads, Hip flexion Seated Reps: 12 Assessment Current Status: Good Progress nausea inhibits Rx today PT Short Term Goals Short Term Goals Time Frame: December 22, 2016 Transfers (B,C,W/C) (FIM): 4 Gait (FIM): 1 Gait Distance Comment: 20' Gait Level of Assist: 4 Gait Assistive Device: FWW Wheelchair Distance: 150' PT Phy Therapist Goals Phy Therapist Goals PT Senior Living Goals Time Frame: January 05, 2017 Transfers (B,C,W/C) (FIM): 5 Sit to Lying (QC): 4 Lying-Sitting on Side/Bed(QC): 4 Sit to Stand (QC): 4 Rollin Roll Left to Right (QC): 4 Chair/[id number] Xfer(QC): 4 Car Transfer (QC): 3 Gait (FIM): 1 Distance: 30' Walk 10 feet (QC): 4 Walk 10ft-Uneven Surface(QC): 88 Walk 50ft with 2 Turns (QC): 88 Walk 150 ft (QC): 88 Gait Level of Assist: 4 (CGA) Gait Assistive Device: FWW Stairs (FIM): 1 # of Steps: 1 1 Step (curb) (QC): 4 4 Steps (QC): 88 12 Steps (QC): 88 Stairs Level Of Assist: 4 Picking up an Object (QC): 88 PT Plan Treatment/Plan Treatment Plan: Continue Plan of Care Treatment Plan: Bed Mobility, Education, Functional Activity Rima, Functional Strength, Group Therapy, Gait, Safety, Therapeutic Exercise, Transfers Treatment Duration: January 05, 2017 Visits Per Week: 10-11 Minutes/Day (M-F): 60-90 Minutes/Day (Sat/Chaves): 15-30 Safety Risks/Education Patient Education: Gait Training, Transfer Techniques Teaching Recipient: Patient Teaching Methods: Demonstration, Discussion Response to Teaching: Verbalize Understanding, Return Demonstration, Reinforcement Needed Time/GCodes Time In: 900 Time Out: 1000 Total Billed Treatment Time: 60 Total Billed Treatment 1,EX20,FA15m,GT25 G Codes Necessary: MARIS [place] PTA December 16, 2016 09:56
--- NOTE | 2016-12-16 11:40 | Occupational Ther Daily Note ---
OT Current Status-Daily Note Subjective Pt seen in [facility], up in [facility], agreeable to OT. Reported he still feel nauseated but Sprite has helped. No pain mentioned. Appearance Alert, cooperative. Pt oriented to year but not month, date, location. Mental Status/Objective Functional [place] Measure 0=Not Assessed/NA 4=Minimal Assistance 1=Total Assistance 5=Supervision or Setup 2=Maximal Assistance 6=Modified [place] 3=Moderate Assistance 7=Complete [place] ADL-Treatment Pt transferred from [facility] to [facility] with CGA, FWW. Pt able to verbalize that is not supposed to put weight on his R leg but appears to put some on it, although not full weight. He is impulsive and does not wait for gait belt or FWW. Pt was able to use urinal with setup while up in [facility] but is unable to empty it. Functional [place] Measure 0=Not Assessed/NA 4=Minimal Assistance 1=Total Assistance 5=Supervision or Setup 2=Maximal Assistance 6=Modified [place] 3=Moderate Assistance 7=Complete IndependenceIRFPAI Quality Coding Scale 6 Independent with activity with or without an assistive device 5 Patient requires set up or clean up by helper. Patient completes activity by themselves 4 Supervision or touching assist (CGA). [place] provide cues , steadying assist 3 The helper provides less than half the effort to complete the activity 2 The helper provides more than half the effort to complete the activity 1 Dependent. The helper does all the effort to complete an activity 7 Patient refused to complete or attempt activity 9 The patient did not perform the activity before the current illness or injury 88 Not attempted due to Medical conditions or safety concerns Other Treatment Pt transported per [facility] to gym. He worked on tabletop activities for UE strengthening but also to work on problem-solving, following directions, etc. Activities done without additional weight on arms. He was able to follow verbal instructions with a couple steps for placement of colored pegs on board, with occasional cues for using correct hand. He worked with colored blocks to recreate patterns. He was able to copy the designs only after seeing them built first. He had difficulty problem-solving the construction of a three tier pattern, trying to build it from the top down. Pt was wearing soft cervical collar and took it off periodically. he was able to stretch head backwards when collar was on but had more difficulty doing it with collar off and on demand. Unable to follow instructions to pinch shoulder blades together for strengthening. Pt returned to room, transferred back to recliner (impulsive and decreased safety awareness). Pt left up in recliner, chair alarm on, all needs met. Daughter present in room. Education OT Patient Education: Purpose of tx/functional activities Teaching Recipient: Patient, Family Response to Teaching: Verbalize Understanding, Reinforcement Needed OT Short Term Goals Short Term Goals Time Frame: December 29, 2016 Upper Body Dressing(FIM): 5 Lower Body Dressing(FIM): 4 Toileting(FIM): 4 Transfers (B,C,W/C) (FIM): 4 Toilet/Commode Transfer(FIM): 4 Additional Short Term Goals: 2-Verbalize Understanding, 3-ImproveStrength/Rima 1=Demonstrate adherence to instructed precautions during ADL tasks. 2=Patient will verbalize/demonstrate understanding of assistive devices/ modifications for ADL. 3=Patient will improve strength/tolerance for activity to enable patient to perform ADL's. OT Prison Goals Prison Goals Time Frame: January 05, 2017 Eating (FIM): 6 Eating (QC): 6 Groomin Oral Hygiene (QC): 6 Bathing(FIM): 5 Shower/Bathe Self (QC): 5 Upper Body Dressing(FIM): 6 Upper Body Dressing (QC): 6 Lower Body Dressing(FIM): 6 Lower Body Dressing (QC): 6 On/Off Footwear (QC): 6 Toileting(FIM): 6 Toileting Hygiene (QC): 6 Toilet/Commode Transfer(FIM): 6 Toilet/Commode Transfer (QC): 6 Shower Transfer(FIM): 5 Comprehension(FIM): 4 Expression (FIM): 4 Social Interaction(FIM): 4 Problem Solving(FIM): 3 Memory(FIM): 3 Additional Goals: 2-Verbalize Understanding, 3-ImproveStrength/Rima 1=Demonstrate adherence to instructed precautions during ADL tasks. 2=Patient will verbalize/demonstrate understanding of assistive devices/ modifications for ADL. 3=Patient will improve strength/tolerance for activity to enable patient to perform ADL's. OT Education/Plan Problem List/Assessment Pt would benefit from skilled OT to increase his independence in basic self care to allow him to safely return home to live with family. Discharge Recommendations Plan/Recommendations: Continue POC Treatment Plan/Plan of Care Patient would benefit from OT for education, treatment and training to promote independence in ADL's, mobility, safety and/or upper extremity function for ADL' s. Plan of Care: ADL Retraining, Functional Mobility, Group Exercise/Act as Ind ( education, exercise, socialization, activity tolerance, memory, problem solving) , UE Funct Exercise/Act, UE Neuromus Re-Ed/Coord Treatment Duration: January 05, 2017 Visits Per Week: 10-11 Minutes/Day (M-F): 75-90 Minutes/Day (Sat/Chaves): PRN Agreement: Yes Rehab Potential: Fair Time/GCodes Start Time: 10:20 Stop Time: 11:20 Total Time Billed (hr/min): 60 Billed Treatment Time visit, 60 minutes neuromotor CHRYSTAL FREEMAN OT December 16, 2016 11:40
--- NOTE | 2016-12-16 14:02 | Physical Therapy Daily Note ---
PT Daily Note-Current Subjective Pt. and daughter present. Pt. in bed and daughter states he is very fatigued. Appearance pts. gown as wel as sheet damp. Mental Status Patient Orientation: Confused Transfers Functional [place] Measure 0=Not Assessed/NA 4=Minimal Assistance 1=Total Assistance 5=Supervision or Setup 2=Maximal Assistance 6=Modified [place] 3=Moderate Assistance 7=Complete IndependenceIRFPAI Quality Coding Scale 6 Independent with activity with or without an assistive device 5 Patient requires set up or clean up by helper. Patient completes activity by themselves 4 Supervision or touching assist (CGA). [place] provide cues , steadying assist 3 The helper provides less than half the effort to complete the activity 2 The helper provides more than half the effort to complete the activity 1 Dependent. The helper does all the effort to complete an activity 7 Patient refused to complete or attempt activity 9 The patient did not perform the activity before the current illness or injury 88 Not attempted due to Medical conditions or safety concerns attempted several times to have pt. pull self up in bed pulling on rails and pushing with left foot/leg. Pt. needed mod assist for this, was able to push self up in sidelying position better. Gait Training Gait Assistive Device: FWW 6ftx3 with much education for TTWBing, pt. not maintaining well consistently Exercises Supine Ex: Bridging, Ankle pumps, Quad Set, Straight leg raise, Hip abd/add Supine Reps: 8 Treatments pt suggested putting his PJ bottoms and underwear on. Required mod assist for this Assessment Current Status: Good Progress continues confused, daughter very protective and fills in and tries hard to help her father understand etc PT Short Term Goals Short Term Goals Time Frame: December 22, 2016 Transfers (B,C,W/C) (FIM): 4 Gait (FIM): 1 Gait Distance Comment: 20' Gait Level of Assist: 4 Gait Assistive Device: FWW Wheelchair Distance: 150' PT Fpc Goals Fpc Goals PT Fpc Goals Time Frame: January 05, 2017 Transfers (B,C,W/C) (FIM): 5 Sit to Lying (QC): 4 Lying-Sitting on Side/Bed(QC): 4 Sit to Stand (QC): 4 Rollin Roll Left to Right (QC): 4 Chair/Dif-jr-Tgapd Xfer(QC): 4 Car Transfer (QC): 3 Gait (FIM): 1 Distance: 30' Walk 10 feet (QC): 4 Walk 10ft-Uneven Surface(QC): 88 Walk 50ft with 2 Turns (QC): 88 Walk 150 ft (QC): 88 Gait Level of Assist: 4 (CGA) Gait Assistive Device: FWW Stairs (FIM): 1 # of Steps: 1 1 Step (curb) (QC): 4 4 Steps (QC): 88 12 Steps (QC): 88 Stairs Level Of Assist: 4 Picking up an Object (QC): 88 PT Plan Treatment/Plan Treatment Plan: Continue Plan of Care Treatment Plan: Bed Mobility, Education, Functional Activity Rima, Functional Strength, Group Therapy, Gait, Safety, Therapeutic Exercise, Transfers Treatment Duration: January 05, 2017 Visits Per Week: 10-11 Minutes/Day (M-F): 60-90 Minutes/Day (Sat/Chaves): 15-30 Safety Risks/Education Patient Education: Gait Training, Transfer Techniques Teaching Recipient: Patient Teaching Methods: Demonstration, Discussion Response to Teaching: Unable to Return Demonstration, Unable to Comprehend, Reinforcement Needed Time/GCodes Time In: 1330 Time Out: 1400 Total Billed Treatment Time: 30 Total Billed Treatment 1,FA10m,GT20m G Codes Necessary: MARSI Camarillo RETAIL BANKING MANAGER December 16, 2016 14:02
[2016-12-16 18:57] VITALS: BP 106/67
--- NOTE | 2016-12-16 19:43 | PM&R Post Admission Assessment ---
Post Admission Physician Asses The preadmission screen agrees with the post admission assessment that the patient is a good candidate for inpatient rehabilitation. The patient will have a comprehensive program of inpatient rehabilitation with a goal of maximizing level of functional independence prior to discharge home with [family]. The patient will have PT/OT ninety minutes per day, each discipline, five days a week for gait strengthening, conditioning, balance, ADLs , any patient/family/caregiver training necessary. Speech therapy to do cognitive assessment and treat 5 days a week 30 to 45 minutes per day for cognitive/memory issues.. Rehabilitation nursing to assist with bowel, bladder, skin, wound care, medication administration, pain management. Associate Dean Of Women to assist with discharge planning, community reentry. SCD's for DVT prophylaxis. He appears to be well motivated to participate in three hours of therapy a day. He should be able to tolerate three hours of therapy a day from a medical standpoint. He should benefit from the three hours of therapy a day. He has a reasonable discharge plan, reasonable discharge rehabilitation goals and a supportive family. He has various comorbidities that need to be closely monitored with medications and treatments adjusted on a daily basis as needed. These include: TTWB LOER EXTREMITY DUE TO TIBIAL PLATEUA FRX pOST OP ANEMIA cOGNITIVE IMPAIRMENTS hX OF hEP C Barriers to discharge for this patient who had been independent prior to this are for him to be modified independent to supervision for ADLs and mobility skills prior to discharge home with SPOUSE, so as to lessen the burden of the caregivers. Risks for this patient include: 1. rECURRENT Fall WITH RECURRENT 2. Fracture 3. DVT 4. Pulmonary embolism 5. Wound infection 6. Skin breakdown 7. Contractures 8. Poorly controlled pain 9. Urinary retention 10. UTI 11. Respiratory infection 12. Aspiration 13. wORSENING CONFUSUION Estimated Length of Stay: 14 days Prognosis: Rehab prognosis appears good for goal of discharge home with SPOUSE modified independent to supervision for ADLs and mobility skills. ARCHANA MAGAÑA MD December 16, 2016 19:43
[2016-12-16] MEDS: SERTRALINE 50 MG (ZOLOFT) TABLET PO SCH (20:45)
[2016-12-16] MEDS: MIRTAZAPINE 15 MG (REMERON) TAB PO SCH (20:46)
[2016-12-17] MEDS: HYDROcodone/APAP 5 MG/325 MG (LORTAB) TAB PO PRN ×3 (02:27→16:48)
[2016-12-17 05:00] VITALS: BP 161/82
[2016-12-17 05:59] LABS: MEAN PLATELET VOLUME 10.4 FL (7.4-10.4); RED BLOOD COUNT 3.3 10^6/uL (4.35-5.85); RED CELL DISTRIBUTION WIDTH 15.3 % (10.0-14.5); WHITE BLOOD COUNT 5.8 10^3/uL (4.3-11.0)
[2016-12-17] MEDS: FERROUS SULF 325 MG (IRON) TAB PO SCH ×3 (06:13→16:48)
[2016-12-17] MEDS: PANTOPRAZOLE 40 MG (PROTONIX) TAB PO SCH (06:13)
[2016-12-17] MEDS: LIPASE/AMYLASE/PROTEASE (PANCRELIPASE) 5,000 UNITS CAP PO SCH ×3 (06:13→16:48)
[2016-12-17] MEDS: LEVOTHYROXINE 150 MCG (LEVOTHROID) TAB PO SCH (06:13)
[2016-12-17] MEDS: LEVOTHYROXINE 25 MCG (LEVOTHROID) TAB PO SCH (06:13)
[2016-12-17] MEDS: LACTOBACILLUS Acidoph/Bulgar (LACTINEX/FLORANEX) TAB PO SCH ×3 (06:13→16:48)
[2016-12-17 06:47] LABS: ANION GAP 6 MMOL/L (5-14); BLOOD UREA NITROGEN 6 MG/DL (7-18); BUN/CREATININE RATIO 9; CALCIUM 8.6 MG/DL (8.5-10.1); CARBON DIOXIDE 22 MMOL/L (21-32); CHLORIDE 112 MMOL/L (98-107); GFR ESTIMATED > 60; GLUCOSE 67 MG/DL (70-105); POTASSIUM 3.7 MMOL/L (3.6-5.0); SODIUM 140 MMOL/L (135-145)
[2016-12-17] MEDS: DRONABINOL 2.5 MG (MARINOL) CAP PO SCH (08:32)
[2016-12-17] MEDS: DIPHENOXYLATE/ATROPINE 2.5MG/0.025MG (LOMOTIL) TAB PO SCH ×2 (08:33→20:12)
[2016-12-17] MEDS: BENEFIBER (FROM DIETARY) DOCUMENTATION PURPOSE ONLY PO SCH ×3 (08:33→20:16)
[2016-12-17] MEDS: ASPIRIN 81 MG CHEW (CHILDREN'S ASA) PO SCH (08:35)
[2016-12-17] MEDS: HYDROXYCHLOROQUINE 200 MG (PLAQUENIL) TAB PO SCH ×2 (08:38→20:12)
--- NOTE | 2016-12-17 12:07 | Physical Therapy Daily Note ---
PT Daily Note-Current Subjective Pt. in bed upon entering. Needs some encouragement to get up and participate. Pain Numeric Pain Scale: 4 Location: Left Location Body Site: Hip Pain Description: Ache Appearance bed linens and pts PJ clothing damp with urine Mental Status Patient Orientation: Confused Transfers Functional [place] Measure 0=Not Assessed/NA 4=Minimal Assistance 1=Total Assistance 5=Supervision or Setup 2=Maximal Assistance 6=Modified [place] 3=Moderate Assistance 7=Complete IndependenceIRFPAI Quality Coding Scale 6 Independent with activity with or without an assistive device 5 Patient requires set up or clean up by helper. Patient completes activity by themselves 4 Supervision or touching assist (CGA). [place] provide cues , steadying assist 3 The helper provides less than half the effort to complete the activity 2 The helper provides more than half the effort to complete the activity 1 Dependent. The helper does all the effort to complete an activity 7 Patient refused to complete or attempt activity 9 The patient did not perform the activity before the current illness or injury 88 Not attempted due to Medical conditions or safety concerns Transfers (B, C, W/C) (FIM): 4 Scootin Rollin Supine to/from Sit: 4 Sit to/from Stand: 4 Bed to/from Chair: 4 Gait Training Does the Patient Walk?: Yes Gait (FIM): 1 Distance (FIM): 1=up to 49 ft (20ftx3) Gait Level of Assist: 4 Gait Persons Needed: 1 Gait Assistive Device: FWW pt. continues very inconsistent in maintaining TTWB left Exercises Supine Ex: Ankle pumps, Quad Set, Heel Slides, Short Arc Quads, Scooting, Straight leg raise, Hip abd/add Supine Reps: 15 Treatments min to mod assist to change clothing sitting at EOB Assessment Current Status: Good Progress PT Short Term Goals Short Term Goals Time Frame: December 22, 2016 Transfers (B,C,W/C) (FIM): 4 Gait (FIM): 1 Gait Distance Comment: 20' Gait Level of Assist: 4 Gait Assistive Device: FWW Wheelchair Distance: 150' PT Basic Combatant Swimmer Goals Basic Combatant Swimmer Goals PT Alf Goals Time Frame: January 05, 2017 Transfers (B,C,W/C) (FIM): 5 Sit to Lying (QC): 4 Lying-Sitting on Side/Bed(QC): 4 Sit to Stand (QC): 4 Rollin Roll Left to Right (QC): 4 Chair/Tay-sp-Rsolp Xfer(QC): 4 Car Transfer (QC): 3 Gait (FIM): 1 Distance: 30' Walk 10 feet (QC): 4 Walk 10ft-Uneven Surface(QC): 88 Walk 50ft with 2 Turns (QC): 88 Walk 150 ft (QC): 88 Gait Level of Assist: 4 (CGA) Gait Assistive Device: FWW Stairs (FIM): 1 # of Steps: 1 1 Step (curb) (QC): 4 4 Steps (QC): 88 12 Steps (QC): 88 Stairs Level Of Assist: 4 Picking up an Object (QC): 88 PT Plan Treatment/Plan Treatment Plan: Continue Plan of Care Treatment Plan: Bed Mobility, Education, Functional Activity Rima, Functional Strength, Group Therapy, Gait, Safety, Therapeutic Exercise, Transfers Treatment Duration: January 05, 2017 Visits Per Week: 10-11 Minutes/Day (M-F): 60-90 Minutes/Day (Sat/Chaves): 15-30 Safety Risks/Education Patient Education: Gait Training, Transfer Techniques, Reviewed Precautions, Correct Positioning, Safety Issues Teaching Recipient: Patient Teaching Methods: Demonstration, Discussion Response to Teaching: Verbalize Understanding, Unable to Comprehend, Reinforcement Needed Time/GCodes Time In: 845 Time Out: 900 Total Billed Treatment Time: 15 Total Billed Treatment 1,FA15m G Codes Necessary: MARIS Camarillo WRAPPER COUNTER December 17, 2016 12:06
[2016-12-17 18:00] VITALS: BP 131/75
[2016-12-17] MEDS: SERTRALINE 50 MG (ZOLOFT) TABLET PO SCH (20:12)
[2016-12-17] MEDS: MIRTAZAPINE 15 MG (REMERON) TAB PO SCH (20:12)
[2016-12-18] MEDS: LIPASE/AMYLASE/PROTEASE (PANCRELIPASE) 5,000 UNITS CAP PO SCH ×3 (06:04→16:54)
[2016-12-18] MEDS: FERROUS SULF 325 MG (IRON) TAB PO SCH ×3 (06:04→16:54)
[2016-12-18] MEDS: LEVOTHYROXINE 150 MCG (LEVOTHROID) TAB PO SCH (06:04)
[2016-12-18] MEDS: PANTOPRAZOLE 40 MG (PROTONIX) TAB PO SCH (06:04)
[2016-12-18] MEDS: LEVOTHYROXINE 25 MCG (LEVOTHROID) TAB PO SCH (06:04)
[2016-12-18] MEDS: LACTOBACILLUS Acidoph/Bulgar (LACTINEX/FLORANEX) TAB PO SCH ×3 (06:05→16:54)
[2016-12-18] MEDS: HYDROcodone/APAP 5 MG/325 MG (LORTAB) TAB PO PRN ×3 (06:05→17:45)
[2016-12-18 06:29] VITALS: BP 107/69
[2016-12-18] MEDS: DIPHENOXYLATE/ATROPINE 2.5MG/0.025MG (LOMOTIL) TAB PO SCH ×2 (07:44→20:36)
[2016-12-18] MEDS: BENEFIBER (FROM DIETARY) DOCUMENTATION PURPOSE ONLY PO SCH ×3 (07:45→20:38)
[2016-12-18] MEDS: ASPIRIN 81 MG CHEW (CHILDREN'S ASA) PO SCH (07:45)
[2016-12-18] MEDS: DRONABINOL 2.5 MG (MARINOL) CAP PO SCH (07:45)
[2016-12-18] MEDS: HYDROXYCHLOROQUINE 200 MG (PLAQUENIL) TAB PO SCH ×2 (07:45→20:36)
[2016-12-18 17:43] VITALS: BP 143/83
[2016-12-18] MEDS: MIRTAZAPINE 15 MG (REMERON) TAB PO SCH (20:37)
[2016-12-18] MEDS: SERTRALINE 50 MG (ZOLOFT) TABLET PO SCH (20:37)
--- NOTE | 2016-12-18 21:16 | Individualized Plan of Care ---
Individualized Plan of Care Rehab Nursing IPOC Order Admission Date December 14, 2016 at 18:36 Toilet every (bladder): (hrs): 2 hours while AWAKE PRN PT IPOC Problem List: Activity Tolerance, Functional Strength, Safety, Balance, Gait, Transfer, Bed Mobility, ROM Treatment Plan: Continue Plan of Care Bed Mobility, Education, Functional Activity Rima, Functional Strength, Group Therapy, Gait, Safety, Therapeutic Exercise, Transfers Treatment Duration: January 05, 2017 Visits Per Week: 10-11 Minutes/Day (M-F): 60-90 Minutes/Day (Sat/Chaves): 15-30 OT IPOC Problems: Decreased Activ Tolerance, Decreased Safety Aware, Decreased UE Strength, Dependent Transfers, Impaired Funct Balance, Impaired Self-Care Skills OT Problems Pt would benefit from skilled OT to increase his independence in basic self care to allow him to safely return home to live with family. Plan of Care: ADL Retraining, Functional Mobility, Group Exercise/Act as Ind ( education, exercise, socialization, activity tolerance, memory, problem solving) , UE Funct Exercise/Act, UE Neuromus Re-Ed/Coord Treatment Duration: January 05, 2017 Visits Per Week: 10-11 Minutes/Day (M-F): 75-90 Minutes/Day (Sat/Chaves): PRN ST IPOC Speech Therapy Treatment Plan: Continue Plan of Care Treatment Duration: January 05, 2017 Visits Per Week: Four to Five Minutes/Day (M-F): 30 Physician IPOC Medical Issues being managed closely and that require the 24 hour availability of a physician:cHRONIC PANCREATITIS cOGNITIVE IMPAIRMENT aNEMIA Medical Issues: Bowel/Bladder Function, DVT Prophylaxis, Falls Precautions, Fluid/Electrolyte/Nutrition Balance, Infection Protection, Weight Bearing Precautions, Wound Care, Other (List) ( PER ABOVE) Brief Synthesis of Preadmission Screen, Post-Admission Evaluation, and Therapy Evaluations: 61 YO MALE S/P FALL WITH RESULTTING TIBIAL PLATEAU FRX AND NOW ttwb lOWER ETREMITY COMPLICATED BY COGNITIVE IMPAIRMENT AND CONCUUSION hAS CHRONIC PANCREATITIS COMPLICATED BY INTERMITTENT DIARRHEA.hAD BEEN iNDEPENDENT PRIOR TO THIS. Medical Prognosis: fAIR Anticipated Length of Stay: 01/05/17 Rehab Goals mODIFIED iNDEPENDENT TO SUPERRVISION FOR ADLS AND MOBILTY SKILLS WITH IMPROVED COGNITION Anticipated discharge destinat: hOME WITH FAMILY WITH [facility] ARCHANA MAGAÑA MD December 18, 2016 21:16
[2016-12-19] MEDS: HYDROcodone/APAP 5 MG/325 MG (LORTAB) TAB PO PRN ×4 (00:07→23:03)
[2016-12-19 05:04] VITALS: BP 119/77
[2016-12-19] MEDS: PANTOPRAZOLE 40 MG (PROTONIX) TAB PO SCH (06:04)
[2016-12-19] MEDS: LEVOTHYROXINE 25 MCG (LEVOTHROID) TAB PO SCH (06:04)
[2016-12-19] MEDS: LEVOTHYROXINE 150 MCG (LEVOTHROID) TAB PO SCH (06:04)
[2016-12-19] MEDS: FERROUS SULF 325 MG (IRON) TAB PO SCH ×3 (06:04→16:39)
[2016-12-19] MEDS: LACTOBACILLUS Acidoph/Bulgar (LACTINEX/FLORANEX) TAB PO SCH ×3 (06:04→16:39)
[2016-12-19] MEDS: LIPASE/AMYLASE/PROTEASE (PANCRELIPASE) 5,000 UNITS CAP PO SCH ×3 (06:04→16:39)
--- NOTE | 2016-12-19 08:16 | Progress Note (SOAP) ---
Subjective Subjective/Events-last exam confusion. Hepatitis C. History of alcoholism. Patient does not know the day or the date today. Patient not crawling out of bed today Patient slow in thought process Objective Exam Vital Signs Date Time Temp Pulse Resp B/P (MAP) Pulse Ox O2 Delivery O2 Flow Rate FiO2 12/19/16 05:04 98.7 89 16 119/77 99 Room Air 12/18/16 17:43 99.1 89 20 143/83 100 Room Air 12/18/16 09:00 97 I & O 12/19/16 07:00 Intake Total 1270 ml Output Total 500 ml Balance 770 ml Capillary Refill : General Appearance: No Apparent Distress, Thin HEENT: Normal ENT Inspection Neck: Normal Inspection Respiratory: Chest Non Tender, No Accessory Muscle Use, No Respiratory Distress Cardiovascular: Regular Rate, Rhythm Gastrointestinal: non tender, soft Results Lab Laboratory Tests 12/18/16 16:05: Glucometer 105 12/19/16 05:15: Glucometer 77 Assessment/Plan Assessment/Plan Assess & Plan/Chief Complaint Confusion. Hepatitis C. Right leg pain. . 12/19/16. Confusion. Hepatitis C. Right leg pain. Patient to have psych evaluate today Clinical Quality Measures DVT/VTE Risk/Contraindication: Risk Factor Score Per Nursin RFS Level Per Nursing on Admit: 4+=Very High KUSHAL CRAVEN DO December 19, 2016 08:16
[2016-12-19] MEDS: HYDROXYCHLOROQUINE 200 MG (PLAQUENIL) TAB PO SCH ×2 (08:48→20:30)
[2016-12-19] MEDS: DRONABINOL 2.5 MG (MARINOL) CAP PO SCH (08:48)
[2016-12-19] MEDS: DIPHENOXYLATE/ATROPINE 2.5MG/0.025MG (LOMOTIL) TAB PO SCH ×2 (08:48→20:29)
[2016-12-19] MEDS: ASPIRIN 81 MG CHEW (CHILDREN'S ASA) PO SCH (08:48)
[2016-12-19] MEDS: BENEFIBER (FROM DIETARY) DOCUMENTATION PURPOSE ONLY PO SCH ×3 (08:51→20:31)
--- NOTE | 2016-12-19 11:58 | Physical Therapy Daily Note ---
PT Daily Note-Current Subjective Pt. c/o his pain is 8/10 and he is very tired and cannot get up , not even to just walk a few feet to the recliner to try to sit for lunch. Pain Numeric Pain Scale: 8 Location: Right Location Body Site: Thigh Pain Description: Pressure Appearance falls asleep unless awakened Mental Status Patient Orientation: Confused Transfers Functional [place] Measure 0=Not Assessed/NA 4=Minimal Assistance 1=Total Assistance 5=Supervision or Setup 2=Maximal Assistance 6=Modified [place] 3=Moderate Assistance 7=Complete IndependenceIRFPAI Quality Coding Scale 6 Independent with activity with or without an assistive device 5 Patient requires set up or clean up by helper. Patient completes activity by themselves 4 Supervision or touching assist (CGA). [place] provide cues , steadying assist 3 The helper provides less than half the effort to complete the activity 2 The helper provides more than half the effort to complete the activity 1 Dependent. The helper does all the effort to complete an activity 7 Patient refused to complete or attempt activity 9 The patient did not perform the activity before the current illness or injury 88 Not attempted due to Medical conditions or safety concerns Rollin Supine to/from Sit: 4 Exercises Supine Ex: Bridging, Ankle pumps, Quad Set, Rolling, Glut sets, Heel Slides, Short Arc Quads, Scooting, Straight leg raise (with assist bilat), Hip abd/add Treatments much discussion with nursing and other PT RE: pts lethargy , lack of appetite and pain c/o Assessment Current Status: Regressing dependent and poor mei for all PT Short Term Goals Short Term Goals Time Frame: December 22, 2016 Transfers (B,C,W/C) (FIM): 4 Gait (FIM): 1 Gait Distance Comment: 20' Gait Level of Assist: 4 Gait Assistive Device: FWW Wheelchair Distance: 150' PT Longterm Goals Newborn Hearing Screener Goals PT Newborn Hearing Screener Goals Time Frame: January 05, 2017 Transfers (B,C,W/C) (FIM): 5 Sit to Lying (QC): 4 Lying-Sitting on Side/Bed(QC): 4 Sit to Stand (QC): 4 Rollin Roll Left to Right (QC): 4 Chair/Rty-pg-Crtup Xfer(QC): 4 Car Transfer (QC): 3 Gait (FIM): 1 Distance: 30' Walk 10 feet (QC): 4 Walk 10ft-Uneven Surface(QC): 88 Walk 50ft with 2 Turns (QC): 88 Walk 150 ft (QC): 88 Gait Level of Assist: 4 (CGA) Gait Assistive Device: FWW Stairs (FIM): 1 # of Steps: 1 1 Step (curb) (QC): 4 4 Steps (QC): 88 12 Steps (QC): 88 Stairs Level Of Assist: 4 Picking up an Object (QC): 88 PT Plan Treatment/Plan Treatment Plan: Continue Plan of Care Treatment Plan: Bed Mobility, Education, Functional Activity Rima, Functional Strength, Group Therapy, Gait, Safety, Therapeutic Exercise, Transfers Treatment Duration: January 05, 2017 Visits Per Week: 10-11 Minutes/Day (M-F): 60-90 Minutes/Day (Sat/Chaves): 15-30 Safety Risks/Education Patient Education: Transfer Techniques, Issued Written HEP Time/GCodes Time In: 1100 Time Out: 1200 Total Billed Treatment Time: 60 Total Billed Treatment 1,FA40,EX20 G Codes Necessary: MARIS Camar[place] IT SUPPORT ENGINEER December 19, 2016 11:58
--- NOTE | 2016-12-19 13:27 | Occupational Ther Daily Note ---
OT Current Status-Daily Note Subjective Pt seen in room, up in bed, reported pain 9/10 in R leg (intermittent, but sharp when it happens). Nursing notified and reported he had pain meds at 9 am. Appearance Sleepy initially, requiring frequent rest breaks Oriented to person but thought he was in [place] at a correctional facility. Mental Status/Objective Patient Orientation: Person Functional [place] Measure 0=Not Assessed/NA 4=Minimal Assistance 1=Total Assistance 5=Supervision or Setup 2=Maximal Assistance 6=Modified [place] 3=Moderate Assistance 7=Complete [place] ADL-Treatment Pt transitioned from supine to sit EOB with min assist and transferred to w/c with min assist, FWW, with physical assistance to place hands. Transferred from w/c to shower bench ([facility]) with mod assist. Required almost total assist and two people to transfer from shower bench back to / and from w/c to bed. By end of shower he was leaning forward and unable to lift head up. He required mod assist to move from supine to sit EOB to stand to pull pants up and physical help for hand placement for sit to stand. Pt appeared to place minimal weight on R leg during transfers. Functional [place] Measure 0=Not Assessed/NA 4=Minimal Assistance 1=Total Assistance 5=Supervision or Setup 2=Maximal Assistance 6=Modified [place] 3=Moderate Assistance 7=Complete IndependenceIRFPAI Quality Coding Scale 6 Independent with activity with or without an assistive device 5 Patient requires set up or clean up by helper. Patient completes activity by themselves 4 Supervision or touching assist (CGA). [place] provide cues , steadying assist 3 The helper provides less than half the effort to complete the activity 2 The helper provides more than half the effort to complete the activity 1 Dependent. The helper does all the effort to complete an activity 7 Patient refused to complete or attempt activity 9 The patient did not perform the activity before the current illness or injury 88 Not attempted due to Medical conditions or safety concerns Eating (FIM): 5 (Pt has not been eating but did drink two Ensure shakes if put on ice and handed to him. Decreased initiation of eating. ) Grooming (FIM): 5 (Face and hands, setup during shower) Upper Body (FIM): 5 (Donned shirt with setup) Lower Body Dressing (FIM): 3 (help to get R and L feet into pants but pt helped pull them up to thighs and partially over bottom. Mod assist sit to stand to pull pants up (pt helped). help with slipper socks. FWW) Shower Transfer(FIM): 1 (Two person transfer off shower bench to w/c) Pt was able to help wash his hair, wash his hands and face, and wash bottom but needed close supervision for safely. Sitting and head balance declined during shower and it was terminated before he could wash all parts. Other Treatment Pt was able to do 5 reps shoulder abd ex with yellow theraband x 2 sets. He had significantly limited active shoulder abd with resistance from band but could fully abduct arms without resistance. Pt did 10 reps elbow flex and 10 reps elbow ext with verbal and occasional physical cues. All exercises done two sets. Required recovery period between exercises and sometimes closed eyes. All ADLs and exercises took longer than usual. Pt left up in bed to conserve energy for PT. Significant decline in strength and activity tolerance from beginning of tx to end. Education OT Patient Education: Modified ADL techniques, Purpose of tx/functional activities, Reviewed precautions, Safety issues, Transfer techniques Teaching Recipient: Patient Response to Teaching: Reinforcement Needed OT Short Term Goals Short Term Goals Time Frame: December 29, 2016 Upper Body Dressing(FIM): 5 Lower Body Dressing(FIM): 4 Toileting(FIM): 4 Transfers (B,C,W/C) (FIM): 4 Toilet/Commode Transfer(FIM): 4 Additional Short Term Goals: 2-Verbalize Understanding, 3-ImproveStrength/Rima 1=Demonstrate adherence to instructed precautions during ADL tasks. 2=Patient will verbalize/demonstrate understanding of assistive devices/ modifications for ADL. 3=Patient will improve strength/tolerance for activity to enable patient to perform ADL's. OT Usp Goals Leveling Machine Operator Goals Time Frame: January 05, 2017 Eating (FIM): 6 Eating (QC): 6 Groomin Oral Hygiene (QC): 6 Bathing(FIM): 5 Shower/Bathe Self (QC): 5 Upper Body Dressing(FIM): 6 Upper Body Dressing (QC): 6 Lower Body Dressing(FIM): 6 Lower Body Dressing (QC): 6 On/Off Footwear (QC): 6 Toileting(FIM): 6 Toileting Hygiene (QC): 6 Toilet/Commode Transfer(FIM): 6 Toilet/Commode Transfer (QC): 6 Shower Transfer(FIM): 5 Comprehension(FIM): 4 Expression (FIM): 4 Social Interaction(FIM): 4 Problem Solving(FIM): 3 Memory(FIM): 3 Additional Goals: 2-Verbalize Understanding, 3-ImproveStrength/Rima 1=Demonstrate adherence to instructed precautions during ADL tasks. 2=Patient will verbalize/demonstrate understanding of assistive devices/ modifications for ADL. 3=Patient will improve strength/tolerance for activity to enable patient to perform ADL's. OT Education/Plan Problem List/Assessment Pt would benefit from skilled OT to increase his independence in basic self care to allow him to safely return home to live with family. Discharge Recommendations Plan/Recommendations: Continue POC Treatment Plan/Plan of Care Patient would benefit from OT for education, treatment and training to promote independence in ADL's, mobility, safety and/or upper extremity function for ADL' s. Plan of Care: ADL Retraining, Functional Mobility, Group Exercise/Act as Ind ( education, exercise, socialization, activity tolerance, memory, problem solving) , UE Funct Exercise/Act, UE Neuromus Re-Ed/Coord Treatment Duration: January 05, 2017 Visits Per Week: 10-11 Minutes/Day (M-F): 75-90 Minutes/Day (Sat/Chaves): PRN Agreement: Yes Rehab Potential: Fair Time/GCodes Start Time: 09:30 Stop Time: 11:00 Total Time Billed (hr/min): 90 Billed Treatment Time visit, 60 minutes ADL, 30 minutes exercise CHRYSTAL FREEMAN OT December 19, 2016 13:27
--- NOTE | 2016-12-19 14:54 | Physical Therapy Daily Note ---
PT Daily Note-Current Subjective Pt. with alarm on sitting EOB states he needs to "pee". C/o he is so very tired and weak Pain Numeric Pain Scale: 7 Location: Right Location Body Site: Thigh Pain Description: Ache Mental Status Patient Orientation: Confused Attachments: Knee Immobilizer Transfers Functional [place] Measure 0=Not Assessed/NA 4=Minimal Assistance 1=Total Assistance 5=Supervision or Setup 2=Maximal Assistance 6=Modified [place] 3=Moderate Assistance 7=Complete IndependenceIRFPAI Quality Coding Scale 6 Independent with activity with or without an assistive device 5 Patient requires set up or clean up by helper. Patient completes activity by themselves 4 Supervision or touching assist (CGA). [place] provide cues , steadying assist 3 The helper provides less than half the effort to complete the activity 2 The helper provides more than half the effort to complete the activity 1 Dependent. The helper does all the effort to complete an activity 7 Patient refused to complete or attempt activity 9 The patient did not perform the activity before the current illness or injury 88 Not attempted due to Medical conditions or safety concerns sup to sit to stand and back all mod to max assist Exercises Supine Ex: Ankle pumps, Quad Set, Rolling Treatments stood beside bed with mod assist to manage pants and urinal. Pt. then was very very fatigued and weak and required max assist to get up in to bed Assessment Current Status: Regressing max assist for mobility PT Short Term Goals Short Term Goals Time Frame: December 22, 2016 Transfers (B,C,W/C) (FIM): 4 Gait (FIM): 1 Gait Distance Comment: 20' Gait Level of Assist: 4 Gait Assistive Device: FWW Wheelchair Distance: 150' PT Mcfp Goals Brick Cleaner Goals PT Brick Cleaner Goals Time Frame: January 05, 2017 Transfers (B,C,W/C) (FIM): 5 Sit to Lying (QC): 4 Lying-Sitting on Side/Bed(QC): 4 Sit to Stand (QC): 4 Rollin Roll Left to Right (QC): 4 Chair/Wkz-ai-Nwrvn Xfer(QC): 4 Car Transfer (QC): 3 Gait (FIM): 1 Distance: 30' Walk 10 feet (QC): 4 Walk 10ft-Uneven Surface(QC): 88 Walk 50ft with 2 Turns (QC): 88 Walk 150 ft (QC): 88 Gait Level of Assist: 4 (CGA) Gait Assistive Device: FWW Stairs (FIM): 1 # of Steps: 1 1 Step (curb) (QC): 4 4 Steps (QC): 88 12 Steps (QC): 88 Stairs Level Of Assist: 4 Picking up an Object (QC): 88 PT Plan Treatment/Plan Treatment Plan: Continue Plan of Care Treatment Plan: Bed Mobility, Education, Functional Activity Rima, Functional Strength, Group Therapy, Gait, Safety, Therapeutic Exercise, Transfers Treatment Duration: January 05, 2017 Visits Per Week: 10-11 Minutes/Day (M-F): 60-90 Minutes/Day (Sat/Chaves): 15-30 Safety Risks/Education Patient Education: Transfer Techniques, Correct Positioning, Disease Process, Safety Issues Teaching Recipient: Patient Teaching Methods: Demonstration, Discussion Response to Teaching: Verbalize Understanding, Return Demonstration, Reinforcement Needed Time/GCodes Time In: 1400 Time Out: 1430 Total Billed Treatment Time: 30 Total Billed Treatment 1,FA30m G Codes Necessary: MARIS [place] SUPERVISOR URANIUM PROCESSING December 19, 2016 14:54
[2016-12-19 18:00] VITALS: BP 114/75
[2016-12-19] MEDS: MIRTAZAPINE 15 MG (REMERON) TAB PO SCH (20:29)
[2016-12-19] MEDS: SERTRALINE 50 MG (ZOLOFT) TABLET PO SCH (20:30)
[2016-12-20] MEDS: PANTOPRAZOLE 40 MG (PROTONIX) TAB PO SCH (06:30)
[2016-12-20] MEDS: LACTOBACILLUS Acidoph/Bulgar (LACTINEX/FLORANEX) TAB PO SCH ×3 (06:30→15:58)
[2016-12-20] MEDS: LEVOTHYROXINE 25 MCG (LEVOTHROID) TAB PO SCH (06:30)
[2016-12-20] MEDS: FERROUS SULF 325 MG (IRON) TAB PO SCH ×3 (06:30→16:44)
[2016-12-20] MEDS: LIPASE/AMYLASE/PROTEASE (PANCRELIPASE) 5,000 UNITS CAP PO SCH ×3 (06:30→16:45)
[2016-12-20] MEDS: LEVOTHYROXINE 150 MCG (LEVOTHROID) TAB PO SCH (06:30)
[2016-12-20 06:40] VITALS: BP 115/73
--- NOTE | 2016-12-20 08:52 | Progress Note (SOAP) ---
Subjective Subjective/Events-last exam Patient is less confused today. Patient feels he has improved since being here. Hepatitis C. Debility. Objective Exam Vital Signs Date Time Temp Pulse Resp B/P (MAP) Pulse Ox O2 Delivery O2 Flow Rate FiO2 12/20/16 06:40 99.3 84 16 115/73 97 Room Air 12/19/16 18:00 99.1 85 18 114/75 98 Room Air 12/19/16 09:00 99 I & O 12/20/16 07:00 Intake Total 1354 ml Output Total 1320 ml Balance 34 ml Capillary Refill : General Appearance: No Apparent Distress, Thin Results Lab Laboratory Tests 12/19/16 16:13: Glucometer 185H 12/20/16 06:27: Glucometer 85 Assessment/Plan Assessment/Plan Assess & Plan/Chief Complaint Confusion. Hepatitis C. Right leg pain. . 12/19/16. Confusion. Hepatitis C. Right leg pain. Patient to have psych evaluate today. . 12/20/16. Hepatitis C. Debility. Less confusion today. Patient refused psych evaluation Clinical Quality Measures DVT/VTE Risk/Contraindication: Risk Factor Score Per Nursin RFS Level Per Nursing on Admit: 4+=Very High KUSHAL CRAVEN DO December 20, 2016 08:52
[2016-12-20] MEDS: BENEFIBER (FROM DIETARY) DOCUMENTATION PURPOSE ONLY PO SCH ×3 (09:00→20:35)
[2016-12-20] MEDS: HYDROXYCHLOROQUINE 200 MG (PLAQUENIL) TAB PO SCH ×2 (09:03→20:35)
[2016-12-20] MEDS: ASPIRIN 81 MG CHEW (CHILDREN'S ASA) PO SCH (09:03)
[2016-12-20] MEDS: DRONABINOL 2.5 MG (MARINOL) CAP PO SCH (09:03)
[2016-12-20] MEDS: DIPHENOXYLATE/ATROPINE 2.5MG/0.025MG (LOMOTIL) TAB PO SCH ×2 (09:04→20:35)
[2016-12-20 10:49] LABS: MEAN PLATELET VOLUME 9.5 FL (7.4-10.4); RED BLOOD COUNT 4.02 10^6/uL (4.35-5.85); RED CELL DISTRIBUTION WIDTH 15.6 % (10.0-14.5); WHITE BLOOD COUNT 7.3 10^3/uL (4.3-11.0)
--- NOTE | 2016-12-20 10:51 | Speech Therapy Daily Note ---
Speech Daily Progress Note Subjective The patient was laying in bed upon entrance. The patient reported fatigue, however, was agreeable to cognitive treatment on this date. Objective - The Assessment of Language Related Functional Activities (JUAN MIGUEL) was initiated on this date with the below results. The functional activities demonstrate and mirror activities the patient will participate in at home. - Telling Time: The patient demonstrated 100% accuracy with telling time on an analog clock, independently. - Solving Daily Math Problems: The patient demonstrated 60% accuracy with simple math problems including time equations, tip, recipes, etc. The patient stated on several occasions, "My brain won't work anymore." - Using a Calendar: The patient demonstrated 80% accuracy with calendar use on this date. - Reading Instructions: The patient demonstrated 70% accuracy with reading instructions on this date with moderate clinician verbal cueing. - The patient continues to require moderate clinician verbal cueing for continued participation in therapy tasks. Assessment Assessment Current Status: Poor Progress Treatment Plan Continue Plan of Care Communication Comprehension: 3 Expression: 3 Social Cognition Social Interaction: 2 Problem Solvin Memory: 3 Speech Short Term Goals Short Term Goals Short Term Goals 1. The patient will participate in a full evaluation of cognitive function and receptive/expressive language. MET 12/16/2016 2. The patient will demonstrate 80% accuracy with orientation information with use of the provided external aid. 3. The patient will display 80% accuracy with simple, one-step commands ( provided verbally) with mild clinician verbal cueing. 4. The patient will demonstrate 80% accuracy with structured word-finding tasks. Time Frame-STG: One Week Speech Room Service Food Service Attendant Goals [facility]ci Goals 1. The patient will demonstrate increased cognitive skills for improved safety and function with ADL's in the least restrictive setting. Time Frame: Three Weeks Comprehension: 4 Expression: 4 Social Interaction: 4 Problem Solvin Memory: 3 Speech-Plan Treatment Plan Speech Therapy Treatment Plan: Continue Plan of Care Continue skilled speech pathology intervention for improvement of functional cognitive tasks. Treatment Duration: January 05, 2017 # of days/week Four to Five. Visits Per Week: Four to Five Minutes/Day (M-F): 30 Rehab Potential: Fair Safety Risks/Education Teaching Recipient: Patient Teaching Methods: Demonstration, Discussion Response to Teaching: Reinforcement Needed Education Topics Provided: Orientation Strategies Time Speech Therapy Time In: 09:00 Speech Therapy Time Out: 09:30 Total Billed Time: 30 Billed Treatment Time 1, KELSEY KATE December 20, 2016 10:51
--- NOTE | 2016-12-20 11:00 | Occupational Ther Daily Note ---
OT Current Status-Daily Note Subjective Pt seen in room, in bed resting. Agreeable to OT Pain reported 9-10 in R leg, 9 in temples for headache. Nursing notified. Appearance Oriented to name and , knew [address] but thought he was in [place]. Knew year was 2016 Mental Status/Objective Functional [place] Measure 0=Not Assessed/NA 4=Minimal Assistance 1=Total Assistance 5=Supervision or Setup 2=Maximal Assistance 6=Modified [place] 3=Moderate Assistance 7=Complete [place] ADL-Treatment Functional [place] Measure 0=Not Assessed/NA 4=Minimal Assistance 1=Total Assistance 5=Supervision or Setup 2=Maximal Assistance 6=Modified [place] 3=Moderate Assistance 7=Complete IndependenceIRFPAI Quality Coding Scale 6 Independent with activity with or without an assistive device 5 Patient requires set up or clean up by helper. Patient completes activity by themselves 4 Supervision or touching assist (CGA). [place] provide cues , steadying assist 3 The helper provides less than half the effort to complete the activity 2 The helper provides more than half the effort to complete the activity 1 Dependent. The helper does all the effort to complete an activity 7 Patient refused to complete or attempt activity 9 The patient did not perform the activity before the current illness or injury 88 Not attempted due to Medical conditions or safety concerns Grooming (FIM): 5 (Setup to brush teeth at sink, w/c level) Upper Body (FIM): 5 (Able to get shirt off without difficulty. Struggled a little with shirt orientation when donning it but figured it out. ) Lower Body Dressing (FIM): 2 (Able to get pants off hips in bed and off L knee but not off feet and R lower leg. Help needed to get slipper socks on. Help also needed to place feet in pants, pull them up thighs and over hips. Pt unable to balance himself when standing with FWW. ) Toileting (FIM): 1 (Help needed for pants down and up and for hygiene. Black, tarry stool.Pt was incontinent of urine in Dep[place].) Transfers (B, C, W/C) (FIM): 2 (Max assist BSC to w/c, FWW) Toilet/Commode Transfer (FIM): 2 (Max assist transfer from bed to BSC, SPT. FWW. Second person available for safety) Pt has some small blisters on R thigh and near groin - nursing notified. Also has small scabbed area posterior R thigh - nursing alerted that he can have brace off when in bed. Other Treatment Pt was transported to gym per w/c. He worked with arc activity with no extensions and could move no more than 8 of 12 rings before his head drooped and he had to either stretch or rest. His tolerance to participate was no longer than 30 seconds before he had to stop. pain continued rated the same. Pt had coffee but had difficulty drinking it so was provided with a Fabrizio cup that has a lid and a handle and used straws so he didn't have to tip it up to drink. He also drank a can of Ensure. Pt returned to room per w/c. Care transferred to PT. Education OT Patient Education: Modified ADL techniques, Purpose of tx/functional activities, Safety issues, Transfer techniques Teaching Recipient: Patient Response to Teaching: Reinforcement Needed OT Short Term Goals Short Term Goals Time Frame: December 29, 2016 Upper Body Dressing(FIM): 5 Lower Body Dressing(FIM): 4 Toileting(FIM): 4 Transfers (B,C,W/C) (FIM): 4 Toilet/Commode Transfer(FIM): 4 Additional Short Term Goals: 2-Verbalize Understanding, 3-ImproveStrength/Rima 1=Demonstrate adherence to instructed precautions during ADL tasks. 2=Patient will verbalize/demonstrate understanding of assistive devices/ modifications for ADL. 3=Patient will improve strength/tolerance for activity to enable patient to perform ADL's. OT Detention Goals Sweeper Brush Maker Machine Goals Time Frame: January 05, 2017 Eating (FIM): 6 Eating (QC): 6 Groomin Oral Hygiene (QC): 6 Bathing(FIM): 5 Shower/Bathe Self (QC): 5 Upper Body Dressing(FIM): 6 Upper Body Dressing (QC): 6 Lower Body Dressing(FIM): 6 Lower Body Dressing (QC): 6 On/Off Footwear (QC): 6 Toileting(FIM): 6 Toileting Hygiene (QC): 6 Toilet/Commode Transfer(FIM): 6 Toilet/Commode Transfer (QC): 6 Shower Transfer(FIM): 5 Comprehension(FIM): 4 Expression (FIM): 4 Social Interaction(FIM): 4 Problem Solving(FIM): 3 Memory(FIM): 3 Additional Goals: 2-Verbalize Understanding, 3-ImproveStrength/Rima 1=Demonstrate adherence to instructed precautions during ADL tasks. 2=Patient will verbalize/demonstrate understanding of assistive devices/ modifications for ADL. 3=Patient will improve strength/tolerance for activity to enable patient to perform ADL's. OT Education/Plan Problem List/Assessment Pt would benefit from skilled OT to increase his independence in basic self care to allow him to safely return home to live with family. Discharge Recommendations Plan/Recommendations: Continue POC Treatment Plan/Plan of Care Patient would benefit from OT for education, treatment and training to promote independence in ADL's, mobility, safety and/or upper extremity function for ADL' s. Plan of Care: ADL Retraining, Functional Mobility, Group Exercise/Act as Ind ( education, exercise, socialization, activity tolerance, memory, problem solving) , UE Funct Exercise/Act, UE Neuromus Re-Ed/Coord Treatment Duration: January 05, 2017 Visits Per Week: 10-11 Minutes/Day (M-F): 75-90 Minutes/Day (Sat/[place]): PRN Agreement: Yes Rehab Potential: Fair Time/GCodes Start Time: 09:30 Stop Time: 10:30 Total Time Billed (hr/min): 60 Billed Treatment Time visit, 35 minutes ADL, 25 minutes functional activities CHRYSTAL FREEMAN OT December 20, 2016 11:00
[2016-12-20 11:10] LABS: ALANINE AMINOTRANSFERASE 43 U/L (0-55); ALBUMIN 2.1 G/DL (3.2-4.5); ANION GAP 9 MMOL/L (5-14); ASPARTATE AMINO TRANSFERASE 61 U/L (5-34); BILIRUBIN,TOTAL 0.8 MG/DL (0.1-1.0); BLOOD UREA NITROGEN 8 MG/DL (7-18); BUN/CREATININE RATIO 11; CALCIUM 8.7 MG/DL (8.5-10.1); CARBON DIOXIDE 22 MMOL/L (21-32); CHLORIDE 106 MMOL/L (98-107); CREATININE SERUM 0.75 MG/DL (0.60-1.30); GFR ESTIMATED > 60; GLUCOSE 123 MG/DL (70-105); POTASSIUM 3.9 MMOL/L (3.6-5.0); SODIUM 137 MMOL/L (135-145); TOTAL PROTEIN 6.3 G/DL (6.4-8.2)
--- NOTE | 2016-12-20 11:22 | Physical Therapy Daily Note ---
PT Daily Note-Current Subjective Pt is sitting in [facility] with OT in room upon arrival. Pt reports pain in R knee of 9/10 but no pain med can be given at this point per nurse. Pt agrees to PT despite reporting feeling tired. Pain Numeric Pain Scale: 9 Location: Right Location Body Site: Knee Pain Description: Ache Mental Status Patient Orientation: Person, Place, Situation Attachments: Other-See Comments Knee Brace Transfers Functional [place] Measure 0=Not Assessed/NA 4=Minimal Assistance 1=Total Assistance 5=Supervision or Setup 2=Maximal Assistance 6=Modified [place] 3=Moderate Assistance 7=Complete IndependenceIRFPAI Quality Coding Scale 6 Independent with activity with or without an assistive device 5 Patient requires set up or clean up by helper. Patient completes activity by themselves 4 Supervision or touching assist (CGA). [place] provide cues , steadying assist 3 The helper provides less than half the effort to complete the activity 2 The helper provides more than half the effort to complete the activity 1 Dependent. The helper does all the effort to complete an activity 7 Patient refused to complete or attempt activity 9 The patient did not perform the activity before the current illness or injury 88 Not attempted due to Medical conditions or safety concerns Transfers (B, C, W/C) (FIM): 4 Scootin Rollin Roll Left to Right (QC): 4 Supine to/from Sit: 4 Sit to/from Stand: 4 Sit to Lying (QC): 4 Sit to Stand (QC): 4 Chair/Zmw-dg-[place] Xfer(QC): 4 Bed to/from Chair: 4 Weight Bearing Weight Bearing Restriction: Touch Toe Bearing Location Restriction: R LE Wheelchair Training Does the Pt Use a Wheelchair?: Yes Type of Wheelchair: Manual Exercises Supine Ex: Straight leg raise, Hip abd/add Seated Therapy Exercises: Ankle pumps, Long arc quads, Hip flexion, Kicking activity Treatments Pt completes Seated EX in [facility] with rest breaks. Pt transfers from WCH to EOB using FWW at Min A-CGA. Pt transfers from EOB to Supine at Min A to assist with lifting LE. Pt works on Supine EX as well as bed mobility. Pt rolls to side for positioning to prevent pressure sores. Pt is left with all needs met at end of tx. Assessment Current Status: Fair Progress Pt fatigues easy and is tired upon arrival. Pt reports pain in R knee as well as headache that won't get any better even with pain med. PT Short Term Goals Short Term Goals Time Frame: December 22, 2016 Transfers (B,C,W/C) (FIM): 4 Gait (FIM): 1 Gait Distance Comment: 20' Gait Level of Assist: 4 Gait Assistive Device: FWW Wheelchair Distance: 150' PT Ortho Rn Goals Ortho Rn Goals PT Ortho Rn Goals Time Frame: January 05, 2017 Transfers (B,C,W/C) (FIM): 5 Sit to Lying (QC): 4 Lying-Sitting on Side/Bed(QC): 4 Sit to Stand (QC): 4 Rollin Roll Left to Right (QC): 4 Chair/Rym-zj-Xeinv Xfer(QC): 4 Car Transfer (QC): 3 Gait (FIM): 1 Distance: 30' Walk 10 feet (QC): 4 Walk 10ft-Uneven Surface(QC): 88 Walk 50ft with 2 Turns (QC): 88 Walk 150 ft (QC): 88 Gait Level of Assist: 4 (CGA) Gait Assistive Device: FWW Stairs (FIM): 1 # of Steps: 1 1 Step (curb) (QC): 4 4 Steps (QC): 88 12 Steps (QC): 88 Stairs Level Of Assist: 4 Picking up an Object (QC): 88 PT Plan Problem List Problem List: Activity Tolerance, Functional Strength, Safety, Balance, Gait, Transfer, Bed Mobility, ROM Treatment/Plan Treatment Plan: Continue Plan of Care Treatment Plan: Bed Mobility, Education, Functional Activity Rima, Functional Strength, Group Therapy, Gait, Safety, Therapeutic Exercise, Transfers Treatment Duration: January 05, 2017 Visits Per Week: 10-11 Minutes/Day (M-F): 60-90 Minutes/Day (Sat/Chaves): 15-30 Safety Risks/Education Patient Education: Transfer Techniques, Correct Positioning, Safety Issues Teaching Recipient: Patient Teaching Methods: Discussion Response to Teaching: Verbalize Understanding Time/GCodes Time In: 1030 Time Out: 1115 Total Billed Treatment Time: 45 Total Billed Treatment visit, FA (15m) & EX X2 (30m) CLAUDINE SCHROEDER PTA December 20, 2016 11:22
[2016-12-20] MEDS: HYDROcodone/APAP 5 MG/325 MG (LORTAB) TAB PO PRN ×2 (11:50→19:37)
--- NOTE | 2016-12-20 12:52 | Occupational Ther Daily Note ---
OT Current Status-Daily Note Subjective Pt seen in room, up in bed, agreeable to OT. No pain mentioned. Appearance Alert, cooperative Mental Status/Objective Functional [place] Measure 0=Not Assessed/NA 4=Minimal Assistance 1=Total Assistance 5=Supervision or Setup 2=Maximal Assistance 6=Modified [place] 3=Moderate Assistance 7=Complete [place] ADL-Treatment Functional [place] Measure 0=Not Assessed/NA 4=Minimal Assistance 1=Total Assistance 5=Supervision or Setup 2=Maximal Assistance 6=Modified [place] 3=Moderate Assistance 7=Complete IndependenceIRFPAI Quality Coding Scale 6 Independent with activity with or without an assistive device 5 Patient requires set up or clean up by helper. Patient completes activity by themselves 4 Supervision or touching assist (CGA). [place] provide cues , steadying assist 3 The helper provides less than half the effort to complete the activity 2 The helper provides more than half the effort to complete the activity 1 Dependent. The helper does all the effort to complete an activity 7 Patient refused to complete or attempt activity 9 The patient did not perform the activity before the current illness or injury 88 Not attempted due to Medical conditions or safety concerns Other Treatment Pt did bilat UE exercise with yellow (gentle resistance) theraband. Today he was able to do horizontal abd ex x 7 reps, compared to 5 yesterday, and had greater range of motion. Also did 9-10 reps several different bilat UE ex with Theraband and was able to track reps himself. Pt cont to need to rest between each exercise and needed skilled visual, verbal and physical cues to do them correctly. Ex to strengthen arms to help with standing during ADLs. pt left up in bed, 4 rails up, alarm on, all needs met. Education OT Patient Education: Exercise program Response to Teaching: Reinforcement Needed OT Short Term Goals Short Term Goals Time Frame: December 29, 2016 Upper Body Dressing(FIM): 5 Lower Body Dressing(FIM): 4 Toileting(FIM): 4 Transfers (B,C,W/C) (FIM): 4 Toilet/Commode Transfer(FIM): 4 Additional Short Term Goals: 2-Verbalize Understanding, 3-ImproveStrength/Rima 1=Demonstrate adherence to instructed precautions during ADL tasks. 2=Patient will verbalize/demonstrate understanding of assistive devices/ modifications for ADL. 3=Patient will improve strength/tolerance for activity to enable patient to perform ADL's. OT Mcfp Goals Mcfp Goals Time Frame: January 05, 2017 Eating (FIM): 6 Eating (QC): 6 Groomin Oral Hygiene (QC): 6 Bathing(FIM): 5 Shower/Bathe Self (QC): 5 Upper Body Dressing(FIM): 6 Upper Body Dressing (QC): 6 Lower Body Dressing(FIM): 6 Lower Body Dressing (QC): 6 On/Off Footwear (QC): 6 Toileting(FIM): 6 Toileting Hygiene (QC): 6 Toilet/Commode Transfer(FIM): 6 Toilet/Commode Transfer (QC): 6 Shower Transfer(FIM): 5 Comprehension(FIM): 4 Expression (FIM): 4 Social Interaction(FIM): 4 Problem Solving(FIM): 3 Memory(FIM): 3 Additional Goals: 2-Verbalize Understanding, 3-ImproveStrength/Rima 1=Demonstrate adherence to instructed precautions during ADL tasks. 2=Patient will verbalize/demonstrate understanding of assistive devices/ modifications for ADL. 3=Patient will improve strength/tolerance for activity to enable patient to perform ADL's. OT Education/Plan Problem List/Assessment Pt would benefit from skilled OT to increase his independence in basic self care to allow him to safely return home to live with family. Discharge Recommendations Plan/Recommendations: Continue POC Treatment Plan/Plan of Care Patient would benefit from OT for education, treatment and training to promote independence in ADL's, mobility, safety and/or upper extremity function for ADL' s. Plan of Care: ADL Retraining, Functional Mobility, Group Exercise/Act as Ind ( education, exercise, socialization, activity tolerance, memory, problem solving) , UE Funct Exercise/Act, UE Neuromus Re-Ed/Coord Treatment Duration: January 05, 2017 Visits Per Week: 10-11 Minutes/Day (M-F): 75-90 Minutes/Day (Sat/Chaves): PRN Agreement: Yes Rehab Potential: Fair Time/GCodes Start Time: 11:15 Stop Time: 11:30 Total Time Billed (hr/min): 15 Billed Treatment Time visit, 15 minutes exercise CHRYSTAL FREEMAN OT December 20, 2016 12:52
--- NOTE | 2016-12-20 15:14 | Physical Therapy Daily Note ---
PT Daily Note-Current Subjective Pt laying Supine in bed upon arrival. Pt refused PT due to fatigue upon first attempt. PT returned shortly & pt agreed. Pain Numeric Pain Scale: 10-Worst Possible Pain Location: Right Location Body Site: Knee Pain Description: Ache Mental Status Patient Orientation: Person, Place, Situation Attachments: Other-See Comments Knee Brace Transfers Functional [place] Measure 0=Not Assessed/NA 4=Minimal Assistance 1=Total Assistance 5=Supervision or Setup 2=Maximal Assistance 6=Modified [place] 3=Moderate Assistance 7=Complete IndependenceIRFPAI Quality Coding Scale 6 Independent with activity with or without an assistive device 5 Patient requires set up or clean up by helper. Patient completes activity by themselves 4 Supervision or touching assist (CGA). [place] provide cues , steadying assist 3 The helper provides less than half the effort to complete the activity 2 The helper provides more than half the effort to complete the activity 1 Dependent. The helper does all the effort to complete an activity 7 Patient refused to complete or attempt activity 9 The patient did not perform the activity before the current illness or injury 88 Not attempted due to Medical conditions or safety concerns Scootin Supine to/from Sit: 4 Sit to/from Stand: 4 Sit to Lying (QC): 4 Sit to Stand (QC): 4 Chair/Ywh-kl-Mrdeo Xfer(QC): 4 Bed to/from Chair: 4 Weight Bearing Weight Bearing Restriction: Touch Toe Bearing Location Restriction: R LE Gait Training Does the Patient Walk?: Yes Distance (FIM): 1=up to 49 ft Distance: 15' Walk 10 feet (QC): 4 Gait Level of Assist: 4 Gait Persons Needed: 1 Gait Assistive Device: FWW Pt's gait is slow and antalgic. Wheelchair Training Does the Pt Use a Wheelchair?: Yes Wheelchair Distance: 7=237-47 ft Distance: 75' Wheelchair Level of Assist: 5 Wheel 50 ft with 2 turns (QC): 5 Type of Wheelchair: Manual Exercises Seated Therapy Exercises: Ankle pumps, Sit to stand (1 rep), Long arc quads, Hip flexion Seated Reps: 15 Treatments Pt transferred from supine to EOB at [employer] then EOB to Standing at Min A using FWW. Pt ambulated using FWW at [facility]-Min A approx. 15' before transferring to [facility]. Pt propelled [facility] to Therapy Gym. Pt attempted Sit to Stand at //bars before reporting unable to complete another. Pt completes Seated EX in [facility]. Pt returns to room to rest in bed. Pt transfers from [facility] using FWW at Min A. Pt is left laying Supine in bed with all needs met at end of tx. Assessment Current Status: Fair Progress Pt had to be convinced to participate in PT this afternoon. Pt fatigues easy and continues to need strengthening EX. PT Short Term Goals Short Term Goals Time Frame: December 22, 2016 Transfers (B,C,W/C) (FIM): 4 Gait (FIM): 1 Gait Distance Comment: 20' Gait Level of Assist: 4 Gait Assistive Device: FWW Wheelchair Distance: 150' PT Mcc Goals Spray Gun Repairer Goals PT Mcc Goals Time Frame: January 05, 2017 Transfers (B,C,W/C) (FIM): 5 Sit to Lying (QC): 4 Lying-Sitting on Side/Bed(QC): 4 Sit to Stand (QC): 4 Rollin Roll Left to Right (QC): 4 Chair/Unc-kt-Jqopw Xfer(QC): 4 Car Transfer (QC): 3 Gait (FIM): 1 Distance: 30' Walk 10 feet (QC): 4 Walk 10ft-Uneven Surface(QC): 88 Walk 50ft with 2 Turns (QC): 88 Walk 150 ft (QC): 88 Gait Level of Assist: 4 (CGA) Gait Assistive Device: FWW Stairs (FIM): 1 # of Steps: 1 1 Step (curb) (QC): 4 4 Steps (QC): 88 12 Steps (QC): 88 Stairs Level Of Assist: 4 Picking up an Object (QC): 88 PT Plan Problem List Problem List: Activity Tolerance, Functional Strength, Safety, Balance, Gait, Transfer, Bed Mobility Treatment/Plan Treatment Plan: Continue Plan of Care Treatment Plan: Bed Mobility, Education, Functional Activity Rima, Functional Strength, Group Therapy, Gait, Safety, Therapeutic Exercise, Transfers Treatment Duration: January 05, 2017 Visits Per Week: 10-11 Minutes/Day (M-F): 60-90 Minutes/Day (Sat/Chaves): 15-30 Safety Risks/Education Patient Education: Gait Training, Transfer Techniques, Correct Positioning, Safety Issues Teaching Recipient: Patient Teaching Methods: Discussion Response to Teaching: Verbalize Understanding Time/GCodes Time In: 1410 Time Out: 1440 Total Billed Treatment Time: 30 Total Billed Treatment visit, [facility] (15m) & EX (15m) CLAUDINE SCHROEDER HOGSHEAD STOCK CLERK December 20, 2016 15:14
[2016-12-20 19:16] VITALS: BP 127/82
[2016-12-20] MEDS: MIRTAZAPINE 15 MG (REMERON) TAB PO SCH (20:35)
[2016-12-20] MEDS: SERTRALINE 50 MG (ZOLOFT) TABLET PO SCH (20:36)
[2016-12-21 05:47] VITALS: BP 126/78
[2016-12-21] MEDS: LIPASE/AMYLASE/PROTEASE (PANCRELIPASE) 5,000 UNITS CAP PO SCH ×3 (06:19→17:01)
[2016-12-21] MEDS: LEVOTHYROXINE 25 MCG (LEVOTHROID) TAB PO SCH (06:19)
[2016-12-21] MEDS: FERROUS SULF 325 MG (IRON) TAB PO SCH ×3 (06:19→17:01)
[2016-12-21] MEDS: LEVOTHYROXINE 150 MCG (LEVOTHROID) TAB PO SCH (06:19)
[2016-12-21] MEDS: PANTOPRAZOLE 40 MG (PROTONIX) TAB PO SCH (06:19)
[2016-12-21] MEDS: LACTOBACILLUS Acidoph/Bulgar (LACTINEX/FLORANEX) TAB PO SCH ×3 (06:19→15:33)
[2016-12-21] MEDS: HYDROcodone/APAP 5 MG/325 MG (LORTAB) TAB PO PRN ×3 (06:21→21:49)
[2016-12-21 06:23] LABS: MEAN PLATELET VOLUME 10.1 FL (7.4-10.4); RED BLOOD COUNT 3.72 10^6/uL (4.35-5.85); RED CELL DISTRIBUTION WIDTH 15.8 % (10.0-14.5); WHITE BLOOD COUNT 6.6 10^3/uL (4.3-11.0)
[2016-12-21 07:05] LABS: ALANINE AMINOTRANSFERASE 36 U/L (0-55); ALBUMIN 1.9 G/DL (3.2-4.5); ANION GAP 7 MMOL/L (5-14); ASPARTATE AMINO TRANSFERASE 50 U/L (5-34); BILIRUBIN,TOTAL 0.6 MG/DL (0.1-1.0); BLOOD UREA NITROGEN 9 MG/DL (7-18); BUN/CREATININE RATIO 13; CALCIUM 8.6 MG/DL (8.5-10.1); CARBON DIOXIDE 25 MMOL/L (21-32); CHLORIDE 107 MMOL/L (98-107); CREATININE SERUM 0.69 MG/DL (0.60-1.30); GFR ESTIMATED > 60; GLUCOSE 83 MG/DL (70-105); POTASSIUM 3.6 MMOL/L (3.6-5.0); SODIUM 139 MMOL/L (135-145); TOTAL PROTEIN 5.8 G/DL (6.4-8.2)
--- NOTE | 2016-12-21 07:50 | Progress Note (SOAP) ---
Subjective Subjective/Events-last exam hepatitis C. Confusion. Patient was confused today. Debility. Patient not eating much Objective Exam Vital Signs Date Time Temp Pulse Resp B/P (MAP) Pulse Ox O2 Delivery O2 Flow Rate FiO2 12/21/16 05:47 98.7 85 16 126/78 98 Room Air 12/20/16 19:16 98.3 86 16 127/82 99 I & O 12/21/16 07:00 Intake Total 1800 ml Output Total 550 ml Balance 1250 ml Capillary Refill : General Appearance: No Apparent Distress, Thin HEENT: Normal ENT Inspection Neck: Full Range of Motion, Normal Inspection Respiratory: Chest Non Tender, No Accessory Muscle Use, No Respiratory Distress Cardiovascular: Regular Rate, Rhythm, No Murmur Gastrointestinal: non tender, soft Extremity: Other (breaking out around diaper in the back and right leg) Results Lab Laboratory Tests 12/20/16 10:39: White Blood Count 7.3, Red Blood Count 4.02L, Hemoglobin 11.5#L, Hematocrit 35L , Mean Corpuscular Volume 86, Mean Corpuscular Hemoglobin 29, Mean Corpuscular Hemoglobin Concent 33, Red Cell Distribution Width 15.6H, Platelet Count 481H, Mean Platelet Volume 9.5, Sodium Level 137, Potassium Level 3.9, Chloride Level 106, Carbon Dioxide Level 22, Anion Gap 9, Blood Urea Nitrogen 8, Creatinine 0.75, Estimat Glomerular Filtration Rate > 60, BUN/Creatinine Ratio 11, Glucose Level 123H, Calcium Level 8.7, Total Bilirubin 0.8, Aspartate Amino Transf (AST/ SGOT) 61H, Alanine Aminotransferase (ALT/SGPT) 43, Alkaline Phosphatase 187H, Total Protein 6.3L, Albumin 2.1L 12/20/16 15:59: Glucometer 104 12/21/16 05:36: Glucometer 83 12/21/16 06:04: White Blood Count 6.6, Red Blood Count 3.72L, Hemoglobin 10.5L, Hematocrit 32L, Mean Corpuscular Volume 86, Mean Corpuscular Hemoglobin 28, Mean Corpuscular Hemoglobin Concent 33, Red Cell Distribution Width 15.8H, Platelet Count 388, Mean Platelet Volume 10.1, Sodium Level 139, Potassium Level 3.6, Chloride Level 107, Carbon Dioxide Level 25, Anion Gap 7, Blood Urea Nitrogen 9, Creatinine 0.69, Estimat Glomerular Filtration Rate > 60, BUN/Creatinine Ratio 13, Glucose Level 83, Calcium Level 8.6, Total Bilirubin 0.6, Aspartate Amino Transf (AST/SGOT) 50H, Alanine Aminotransferase (ALT/SGPT) 36, Alkaline Phosphatase 170H, Total Protein 5.8L, Albumin 1.9L Assessment/Plan Assessment/Plan Assess & Plan/Chief Complaint Confusion. Hepatitis C. Right leg pain. . 12/19/16. Confusion. Hepatitis C. Right leg pain. Patient to have psych evaluate today. . 12/20/16. Hepatitis C. Debility. Less confusion today. Patient refused psych evaluation. . 12/21/16. Confusion is better. blisters his right leg and back has his diaper on. Patient weak Clinical Quality Measures DVT/VTE Risk/Contraindication: Risk Factor Score Per Nursin RFS Level Per Nursing on Admit: 4+=Very High KUSHAL CRAVEN DO December 21, 2016 07:50
[2016-12-21] MEDS: HYDROXYCHLOROQUINE 200 MG (PLAQUENIL) TAB PO SCH ×2 (09:04→20:41)
[2016-12-21] MEDS: ASPIRIN 81 MG CHEW (CHILDREN'S ASA) PO SCH (09:04)
[2016-12-21] MEDS: DRONABINOL 2.5 MG (MARINOL) CAP PO SCH (09:04)
[2016-12-21] MEDS: DIPHENOXYLATE/ATROPINE 2.5MG/0.025MG (LOMOTIL) TAB PO SCH ×2 (09:08→20:42)
[2016-12-21] MEDS: MULTIVIT W/MINERALS TAB (THERAGRAN M) PO SCH (09:12)
[2016-12-21] MEDS: THIAMINE 100 MG (VITAMIN B-1) TAB PO SCH (09:12)
[2016-12-21] MEDS: FOLIC ACID 1 MG TAB PO SCH (09:12)
[2016-12-21] MEDS: TRIAMCINOLONE 0.1% CR (KENALOG) 15 GM TUBE TOP SCH ×3 (09:13→20:43)
[2016-12-21] MEDS: BENEFIBER (FROM DIETARY) DOCUMENTATION PURPOSE ONLY PO SCH ×3 (09:13→20:42)
--- NOTE | 2016-12-21 10:32 | Occupational Ther Daily Note ---
OT Current Status-Daily Note Subjective Pt seen in room, up in bed, agreeable to OT. Pt rated pain 9/10 when asked but only showed pain behaviors when moving R leg. Appearance Alert, cooperative Mental Status/Objective Functional [place] Measure 0=Not Assessed/NA 4=Minimal Assistance 1=Total Assistance 5=Supervision or Setup 2=Maximal Assistance 6=Modified [place] 3=Moderate Assistance 7=Complete [place] ADL-Treatment Pt was able to roll side to side on bed to pull pants down over hips. He has more blisters on R thigh and near groin and nursing notified (medication applied ). He will go without paper briefs but was incontinent in brief that was removed. care transferred to PT to complete lower body dressing and apply splint to R leg. Functional [place] Measure 0=Not Assessed/NA 4=Minimal Assistance 1=Total Assistance 5=Supervision or Setup 2=Maximal Assistance 6=Modified [place] 3=Moderate Assistance 7=Complete IndependenceIRFPAI Quality Coding Scale 6 Independent with activity with or without an assistive device 5 Patient requires set up or clean up by helper. Patient completes activity by themselves 4 Supervision or touching assist (CGA). [place] provide cues , steadying assist 3 The helper provides less than half the effort to complete the activity 2 The helper provides more than half the effort to complete the activity 1 Dependent. The helper does all the effort to complete an activity 7 Patient refused to complete or attempt activity 9 The patient did not perform the activity before the current illness or injury 88 Not attempted due to Medical conditions or safety concerns Eating (FIM): 6 (Pt was able to open butter and jelly packages, butter toast, open bowls of fruit. He ate part of a piece of pineapple, part of a grape and 1 bite of toast and spit them all out, saying they were too sour or too dry. He did drink Ensure from [employer] cup and Ensure mixed with his coffee. ) Upper Body (FIM): 4 (Able to remove shirt without help. Oriented clean shirt correctly and got arms in it without difficulty but could not get shirt over head without assistance.) Transfers (B, C, W/C) (FIM): 3 (Mod to min assist needed to move from supine to sit EOB. He leaned back several times and had difficulty getting back up, especially with pushing up with arms when sidelying. He was able to straighten himself out in bed and sit more upright to eat but was with HOB elevated. ) Education OT Patient Education: Progress toward Goal/Update tx plan, Purpose of tx/ functional activities Teaching Recipient: Patient Teaching Methods: Discussion Response to Teaching: Verbalize Understanding OT Short Term Goals Short Term Goals Time Frame: December 29, 2016 Upper Body Dressing(FIM): 5 Lower Body Dressing(FIM): 4 Toileting(FIM): 4 Transfers (B,C,W/C) (FIM): 4 Toilet/Commode Transfer(FIM): 4 Additional Short Term Goals: 2-Verbalize Understanding, 3-ImproveStrength/Rima 1=Demonstrate adherence to instructed precautions during ADL tasks. 2=Patient will verbalize/demonstrate understanding of assistive devices/ modifications for ADL. 3=Patient will improve strength/tolerance for activity to enable patient to perform ADL's. OT Correction Goals Stress Test Technician Goals Time Frame: January 05, 2017 Eating (FIM): 6 Eating (QC): 6 Groomin Oral Hygiene (QC): 6 Bathing(FIM): 5 Shower/Bathe Self (QC): 5 Upper Body Dressing(FIM): 6 Upper Body Dressing (QC): 6 Lower Body Dressing(FIM): 6 Lower Body Dressing (QC): 6 On/Off Footwear (QC): 6 Toileting(FIM): 6 Toileting Hygiene (QC): 6 Toilet/Commode Transfer(FIM): 6 Toilet/Commode Transfer (QC): 6 Shower Transfer(FIM): 5 Comprehension(FIM): 4 Expression (FIM): 4 Social Interaction(FIM): 4 Problem Solving(FIM): 3 Memory(FIM): 3 Additional Goals: 2-Verbalize Understanding, 3-ImproveStrength/Rima 1=Demonstrate adherence to instructed precautions during ADL tasks. 2=Patient will verbalize/demonstrate understanding of assistive devices/ modifications for ADL. 3=Patient will improve strength/tolerance for activity to enable patient to perform ADL's. OT Education/Plan Problem List/Assessment Pt would benefit from skilled OT to increase his independence in basic self care to allow him to safely return home to live with family. Discharge Recommendations Plan/Recommendations: Continue POC Treatment Plan/Plan of Care Patient would benefit from OT for education, treatment and training to promote independence in ADL's, mobility, safety and/or upper extremity function for ADL' s. Plan of Care: ADL Retraining, Functional Mobility, Group Exercise/Act as Ind ( education, exercise, socialization, activity tolerance, memory, problem solving) , UE Funct Exercise/Act, UE Neuromus Re-Ed/Coord Treatment Duration: January 05, 2017 Visits Per Week: 10-11 Minutes/Day (M-F): 75-90 Minutes/Day (Sat/Chaves): PRN Agreement: Yes Rehab Potential: Fair Time/GCodes Start Time: 09:30 Stop Time: 10:00 Total Time Billed (hr/min): 30 Billed Treatment Time visit, ADL 30 minutes CHRYSTAL FREEMAN OT December 21, 2016 10:32
--- NOTE | 2016-12-21 11:18 | Speech Therapy Daily Note ---
Speech Daily Progress Note Subjective The patient was laying in bed upon entrance. The patient greeted the clinician appropriately and was agreeable to participate in the cognitive treatment session, however, stated he was greatly fatigued on this date. To note: The patient required consistent redirection and encouragement throughout the treatment session for continued participation. Objective Functional Memory Strategies: External and internal memory strategies were discussed and demonstrated in length on this date. The patient stated the external memory strategies he uses are a calendar (which is in his kitchen and he checks "at least once a day") and a pill box (which his fills weekly for him). The patient stated he no longer follows a routine as he is retired. The patient stated the internal memory strategy he uses most often is "repetition," however, doesn't feel the need to use it often. Orientation: The patient was oriented to month and day of week. The patient required clinician verbal prompting for accurate identification of year. Assessment Assessment Current Status: Fair Progress Treatment Plan Continue Plan of Care Communication Comprehension: 2 Expression: 3 Social Cognition Social Interaction: 2 Problem Solvin Memory: 3 Speech Short Term Goals Short Term Goals Short Term Goals 1. The patient will participate in a full evaluation of cognitive function and receptive/expressive language. MET 12/16/2016 2. The patient will demonstrate 80% accuracy with orientation information with use of the provided external aid. 3. The patient will display 80% accuracy with simple, one-step commands ( provided verbally) with mild clinician verbal cueing. 4. The patient will demonstrate 80% accuracy with structured word-finding tasks. Time Frame-STG: One Week Speech [employer] Treating Unit Operator Goals [facility] Goals 1. The patient will demonstrate increased cognitive skills for improved safety and function with ADL's in the least restrictive setting. Time Frame: Three Weeks Comprehension: 4 Expression: 4 Social Interaction: 4 Problem Solvin Memory: 3 Speech-Plan Treatment Plan Speech Therapy Treatment Plan: Continue Plan of Care Continue skilled speech pathology intervention to target functional problem solving (cognition). Treatment Duration: January 05, 2017 # of days/week Four to five. Visits Per Week: Four to Five Minutes/Day (M-F): 30 Rehab Potential: Fair Safety Risks/Education Teaching Recipient: Patient Teaching Methods: Discussion Response to Teaching: Reinforcement Needed Education Topics Provided: Orientation Strategies Time Speech Therapy Time In: 08:30 Speech Therapy Time Out: 09:00 Total Billed Time: 30 Billed Treatment Time 1, KELSEY KATE December 21, 2016 11:18
--- NOTE | 2016-12-21 11:44 | Occupational Ther Daily Note ---
OT Current Status-Daily Note Subjective Pt seen in room, up ini w/c, agreeable to OT. Pt was sitting with head resting on bedside table. Pt later rated pain 9/10 in R leg below knee to thigh. Appearance Alert, cooperative Mental Status/Objective Functional [place] Measure 0=Not Assessed/NA 4=Minimal Assistance 1=Total Assistance 5=Supervision or Setup 2=Maximal Assistance 6=Modified [place] 3=Moderate Assistance 7=Complete [place] ADL-Treatment Functional [place] Measure 0=Not Assessed/NA 4=Minimal Assistance 1=Total Assistance 5=Supervision or Setup 2=Maximal Assistance 6=Modified [place] 3=Moderate Assistance 7=Complete IndependenceIRFPAI Quality Coding Scale 6 Independent with activity with or without an assistive device 5 Patient requires set up or clean up by helper. Patient completes activity by themselves 4 Supervision or touching assist (CGA). [place] provide cues , steadying assist 3 The helper provides less than half the effort to complete the activity 2 The helper provides more than half the effort to complete the activity 1 Dependent. The helper does all the effort to complete an activity 7 Patient refused to complete or attempt activity 9 The patient did not perform the activity before the current illness or injury 88 Not attempted due to Medical conditions or safety concerns Toileting (FIM): 1 Transfers (B, C, W/C) (FIM): 4 (Min assist transferring from w/c to bed but sat before he was safely ready. He helped to pull himself up in bed) Toilet/Commode Transfer (FIM): 3 Other Treatment Pt was transported to gym per w/c. Worked with tabletop activities to increase activity tolerance and functional use of UEs for ADLs. He was able to maintain activity for as long as 1.5 minutes before needing to rest, although his head was not up throughout this time. He did multiple sets of activity, working with graded clothespins (easier and moderately easy ones) and 1" pegs, doing activities bilaterally, for no longer than 1.5 minutes. He also toileted prior to going to the gym and required the assistance of two people, one to pull pants down and up while OT assisted with standing and transfers to [facility] (min-mod assist). His legs are not dependable and he fatigues easily. He also needed cues for hand placement for almost all transfers. Pt returned to bed after tx, 4 rails up, bed alarm on, encouraging him to drink Ensure. Education OT Patient Education: Progress toward Goal/Update tx plan, Purpose of tx/ functional activities, Safety issues, Transfer techniques Teaching Recipient: Patient Teaching Methods: Demonstration, Discussion Response to Teaching: Reinforcement Needed OT Short Term Goals Short Term Goals Time Frame: December 29, 2016 Upper Body Dressing(FIM): 5 Lower Body Dressing(FIM): 4 Toileting(FIM): 4 Transfers (B,C,W/C) (FIM): 4 Toilet/Commode Transfer(FIM): 4 Additional Short Term Goals: 2-Verbalize Understanding, 3-ImproveStrength/Rima 1=Demonstrate adherence to instructed precautions during ADL tasks. 2=Patient will verbalize/demonstrate understanding of assistive devices/ modifications for ADL. 3=Patient will improve strength/tolerance for activity to enable patient to perform ADL's. OT Manager Environmental Health And Safety Goals [facility] Goals Time Frame: January 05, 2017 Eating (FIM): 6 Eating (QC): 6 Groomin Oral Hygiene (QC): 6 Bathing(FIM): 5 Shower/Bathe Self (QC): 5 Upper Body Dressing(FIM): 6 Upper Body Dressing (QC): 6 Lower Body Dressing(FIM): 6 Lower Body Dressing (QC): 6 On/Off Footwear (QC): 6 Toileting(FIM): 6 Toileting Hygiene (QC): 6 Toilet/Commode Transfer(FIM): 6 Toilet/Commode Transfer (QC): 6 Shower Transfer(FIM): 5 Comprehension(FIM): 4 Expression (FIM): 4 Social Interaction(FIM): 4 Problem Solving(FIM): 3 Memory(FIM): 3 Additional Goals: 2-Verbalize Understanding, 3-ImproveStrength/Rima 1=Demonstrate adherence to instructed precautions during ADL tasks. 2=Patient will verbalize/demonstrate understanding of assistive devices/ modifications for ADL. 3=Patient will improve strength/tolerance for activity to enable patient to perform ADL's. OT Education/Plan Problem List/Assessment Pt would benefit from skilled OT to increase his independence in basic self care to allow him to safely return home to live with family. Discharge Recommendations Plan/Recommendations: Continue POC Treatment Plan/Plan of Care Patient would benefit from OT for education, treatment and training to promote independence in ADL's, mobility, safety and/or upper extremity function for ADL' s. Plan of Care: ADL Retraining, Functional Mobility, Group Exercise/Act as Ind ( education, exercise, socialization, activity tolerance, memory, problem solving) , UE Funct Exercise/Act, UE Neuromus Re-Ed/Coord Treatment Duration: January 05, 2017 Visits Per Week: 10-11 Minutes/Day (M-F): 75-90 Minutes/Day (Sat/Chaves): PRN Agreement: Yes Rehab Potential: Fair Time/GCodes Start Time: 10:45 Stop Time: 11:30 Total Time Billed (hr/min): 45 Billed Treatment Time visit, 35 minutes functional activity, 10 minutes ADL CHRYSTAL FREEMAN OT December 21, 2016 11:44
--- NOTE | 2016-12-21 15:11 | Physical Therapy Daily Note ---
PT Daily Note-Current Subjective Pt is sitting at EOB upon arrival finishing with OT. Pt has just cleaned up after urination and changed pants and brief. Pt agrees to PT although states he is tired. Pain Numeric Pain Scale: 8 Location: Right Location Body Site: Knee Pain Description: Ache Mental Status Patient Orientation: Person, Place, Situation Attachments: Other-See Comments (Knee Brace) Transfers Functional [place] Measure 0=Not Assessed/NA 4=Minimal Assistance 1=Total Assistance 5=Supervision or Setup 2=Maximal Assistance 6=Modified [place] 3=Moderate Assistance 7=Complete IndependenceIRFPAI Quality Coding Scale 6 Independent with activity with or without an assistive device 5 Patient requires set up or clean up by helper. Patient completes activity by themselves 4 Supervision or touching assist (CGA). [place] provide cues , steadying assist 3 The helper provides less than half the effort to complete the activity 2 The helper provides more than half the effort to complete the activity 1 Dependent. The helper does all the effort to complete an activity 7 Patient refused to complete or attempt activity 9 The patient did not perform the activity before the current illness or injury 88 Not attempted due to Medical conditions or safety concerns Scootin Rollin Roll Left to Right (QC): 4 Supine to/from Sit: 4 Sit to/from Stand: 4 Sit to Lying (QC): 4 Sit to Stand (QC): 4 Weight Bearing Weight Bearing Restriction: Touch Toe Bearing Location Restriction: R LE Gait Training Does the Patient Walk?: Yes Distance (FIM): 1=up to 49 ft Distance: 10' Walk 10 feet (QC): 4 Gait Level of Assist: 4 Gait Persons Needed: 1 Gait Assistive Device: FWW Pt fatigues easy and can only walk short distances before needing to transfer to [facility]. Wheelchair Training Does the Pt Use a Wheelchair?: Yes Wheelchair Distance: 5=501-68 ft Distance: 100' Wheelchair Level of Assist: 5 Wheel 50 ft with 2 turns (QC): 5 Type of Wheelchair: Manual Exercises Seated Therapy Exercises: Ankle pumps, Long arc quads, Hip flexion, Kicking activity Seated Reps: 15 (2 sets of 15 each) NuStep Minutes: 10 NuStep Workload: 2 Treatments Pt transfers from supine to EOB to Standing using FWW at Min A. Pt ambulates short distance before transferring to [facility]. Pt propels to Therapy Gym. Pt uses NuStep and completes Seated Ex to increase strength and activity tolerance to aid with balance and endurance for upright activity. Pt then propels W[facility] back to room to rest before OT to return for additional tx. Pt is left with all needs met at end of tx. Assessment Current Status: Fair Progress Pt is making improvement with increased strength and endurance although still fatigues easy and needs frequent rest breaks. PT Short Term Goals Short Term Goals Time Frame: December 22, 2016 Transfers (B,C,W/C) (FIM): 4 Gait (FIM): 1 Gait Distance Comment: 20' Gait Level of Assist: 4 Gait Assistive Device: FWW Wheelchair Distance: 75' PT Photographer Goals Fpc Goals PT Fpc Goals Time Frame: January 05, 2017 Transfers (B,C,W/C) (FIM): 5 Sit to Lying (QC): 4 Lying-Sitting on Side/Bed(QC): 4 Sit to Stand (QC): 4 Rollin Roll Left to Right (QC): 4 Chair/Mjb-vs-Iohvx Xfer(QC): 4 Car Transfer (QC): 3 Gait (FIM): 1 Distance: 30' Walk 10 feet (QC): 4 Walk 10ft-Uneven Surface(QC): 88 Walk 50ft with 2 Turns (QC): 88 Walk 150 ft (QC): 88 Gait Level of Assist: 4 (CGA) Gait Assistive Device: FWW Stairs (FIM): 1 # of Steps: 1 1 Step (curb) (QC): 4 4 Steps (QC): 88 12 Steps (QC): 88 Stairs Level Of Assist: 4 Picking up an Object (QC): 88 PT Plan Problem List Problem List: Activity Tolerance, Functional Strength, Safety, Balance, Gait, Transfer, Bed Mobility Treatment/Plan Treatment Plan: Continue Plan of Care Treatment Plan: Bed Mobility, Education, Functional Activity Rima, Functional Strength, Group Therapy, Gait, Safety, Therapeutic Exercise, Transfers Treatment Duration: January 05, 2017 Visits Per Week: 10-11 Minutes/Day (M-F): 60-90 Minutes/Day (Sat/Chaves): 15-30 Safety Risks/Education Patient Education: Gait Training, Transfer Techniques, Correct Positioning, Reviewed Don/Doff Brace, Safety Issues Teaching Recipient: Patient Teaching Methods: Discussion Response to Teaching: Verbalize Understanding Time/GCodes Time In: 1000 Time Out: 1045 Total Billed Treatment Time: 45 Total Billed Treatment visit, [facility] (15m), EX X2 (30m) CLAUDINE SCHROEDER ANIMAL SCIENCE INSTRUCTOR December 21, 2016 15:11
--- NOTE | 2016-12-21 16:12 | Physical Therapy Daily Note ---
PT Daily Note-Current Subjective Pt is laying Supine in bed upon arrival. Pt reports feeling very tired but agrees to Supine Ex in bed. Pain Numeric Pain Scale: 8 Location: Right Location Body Site: Knee Pain Description: Ache Mental Status Patient Orientation: Person, Place, Situation Attachments: Other-See Comments (Knee Brace) Transfers Functional [place] Measure 0=Not Assessed/NA 4=Minimal Assistance 1=Total Assistance 5=Supervision or Setup 2=Maximal Assistance 6=Modified [place] 3=Moderate Assistance 7=Complete IndependenceIRFPAI Quality Coding Scale 6 Independent with activity with or without an assistive device 5 Patient requires set up or clean up by helper. Patient completes activity by themselves 4 Supervision or touching assist (CGA). [place] provide cues , steadying assist 3 The helper provides less than half the effort to complete the activity 2 The helper provides more than half the effort to complete the activity 1 Dependent. The helper does all the effort to complete an activity 7 Patient refused to complete or attempt activity 9 The patient did not perform the activity before the current illness or injury 88 Not attempted due to Medical conditions or safety concerns Weight Bearing Weight Bearing Restriction: Touch Toe Bearing Location Restriction: R LE Exercises Supine Ex: Ankle pumps, Quad Set, Glut sets, Heel Slides, Straight leg raise, Hip abd/add Supine Reps: 15 Treatments Pt completes Supine Ex in bed with several rest breaks. Pt is left supine in bed at end of tx with all needs met. Assessment Current Status: Fair Progress Pt continues to fatigue easy and needs rest breaks. PT Short Term Goals Short Term Goals Time Frame: December 22, 2016 Transfers (B,C,W/C) (FIM): 4 Gait (FIM): 1 Gait Distance Comment: 20' Gait Level of Assist: 4 Gait Assistive Device: FWW Wheelchair Distance: 100' PT Residential Goals Residential Goals PT Residential Goals Time Frame: January 05, 2017 Transfers (B,C,W/C) (FIM): 5 Sit to Lying (QC): 4 Lying-Sitting on Side/Bed(QC): 4 Sit to Stand (QC): 4 Rollin Roll Left to Right (QC): 4 Chair/Sxy-ks-Wxuns Xfer(QC): 4 Car Transfer (QC): 3 Gait (FIM): 1 Distance: 30' Walk 10 feet (QC): 4 Walk 10ft-Uneven Surface(QC): 88 Walk 50ft with 2 Turns (QC): 88 Walk 150 ft (QC): 88 Gait Level of Assist: 4 (CGA) Gait Assistive Device: FWW Stairs (FIM): 1 # of Steps: 1 1 Step (curb) (QC): 4 4 Steps (QC): 88 12 Steps (QC): 88 Stairs Level Of Assist: 4 Picking up an Object (QC): 88 PT Plan Problem List Problem List: Activity Tolerance, Functional Strength, Bed Mobility Treatment/Plan Treatment Plan: Continue Plan of Care Treatment Plan: Bed Mobility, Education, Functional Activity Rima, Functional Strength, Group Therapy, Gait, Safety, Therapeutic Exercise, Transfers Treatment Duration: January 05, 2017 Visits Per Week: 10-11 Minutes/Day (M-F): 60-90 Minutes/Day (Sat/Chaves): 15-30 Safety Risks/Education Patient Education: Transfer Techniques, Correct Positioning, Safety Issues Teaching Recipient: Patient Teaching Methods: Discussion Response to Teaching: Verbalize Understanding Time/GCodes Time In: 1400 Time Out: 1430 Total Billed Treatment Time: 30 Total Billed Treatment visit, EX X2 (30m) CLAUDINE SCHROEDER PTA December 21, 2016 16:12
[2016-12-21 18:56] VITALS: BP 124/79
[2016-12-21] MEDS: MIRTAZAPINE 15 MG (REMERON) TAB PO SCH (20:41)
[2016-12-21] MEDS: SERTRALINE 50 MG (ZOLOFT) TABLET PO SCH (20:42)
[2016-12-22 05:00] VITALS: BP 135/81
[2016-12-22] MEDS: LEVOTHYROXINE 25 MCG (LEVOTHROID) TAB PO SCH (06:48)
[2016-12-22] MEDS: LIPASE/AMYLASE/PROTEASE (PANCRELIPASE) 5,000 UNITS CAP PO SCH ×3 (06:48→16:56)
[2016-12-22] MEDS: LEVOTHYROXINE 150 MCG (LEVOTHROID) TAB PO SCH (06:48)
[2016-12-22] MEDS: LACTOBACILLUS Acidoph/Bulgar (LACTINEX/FLORANEX) TAB PO SCH ×3 (06:48→16:56)
[2016-12-22] MEDS: PANTOPRAZOLE 40 MG (PROTONIX) TAB PO SCH (06:48)
[2016-12-22] MEDS: FOLIC ACID 1 MG TAB PO SCH (06:48)
[2016-12-22] MEDS: MULTIVIT W/MINERALS TAB (THERAGRAN M) PO SCH (06:48)
[2016-12-22] MEDS: THIAMINE 100 MG (VITAMIN B-1) TAB PO SCH (06:48)
[2016-12-22] MEDS: FERROUS SULF 325 MG (IRON) TAB PO SCH ×3 (06:48→16:56)
--- NOTE | 2016-12-22 08:17 | Progress Note (SOAP) ---
Subjective Subjective/Events-last exam hepatitis C. Weakness. Debility. Patient still has confusion Objective Exam Vital Signs Date Time Temp Pulse Resp B/P (MAP) Pulse Ox O2 Delivery O2 Flow Rate FiO2 12/22/16 05:00 98.4 82 20 135/81 97 Room Air 12/21/16 18:56 98.0 91 18 124/79 98 Room Air I & O 12/22/16 07:00 Intake Total 1620 ml Output Total 1875 ml Balance -255 ml Capillary Refill : General Appearance: No Apparent Distress, Thin HEENT: Normal ENT Inspection Neck: Full Range of Motion, Normal Inspection Respiratory: Chest Non Tender, No Accessory Muscle Use, No Respiratory Distress , Decreased Breath Sounds Cardiovascular: Regular Rate, Rhythm, No Murmur Results Lab Laboratory Tests 12/21/16 15:54: Glucometer 162H 12/22/16 06:32: Glucometer 78 Assessment/Plan Assessment/Plan Assess & Plan/Chief Complaint Confusion. Hepatitis C. Right leg pain. . 12/19/16. Confusion. Hepatitis C. Right leg pain. Patient to have psych evaluate today. . 12/20/16. Hepatitis C. Debility. Less confusion today. Patient refused psych evaluation. . 12/21/16. Confusion is better. blisters his right leg and back has his diaper on. Patient weak. . 12/22/16.. Patient still has confusion. debility. Patient working progress Clinical Quality Measures DVT/VTE Risk/Contraindication: Risk Factor Score Per Nursin RFS Level Per Nursing on Admit: 4+=Very High KUSHAL CRAVEN DO December 22, 2016 08:17
[2016-12-22] MEDS ORDERED: ONDANSETRON 4 MG (ZOFRAN) ORAL DISSOLVE TAB ONE (09:41)
[2016-12-22] MEDS ORDERED: ONDANSETRON 4 MG (ZOFRAN) ORAL DISSOLVE TAB PO PRN (09:45)
[2016-12-22] MEDS: DRONABINOL 2.5 MG (MARINOL) CAP PO SCH (10:00)
[2016-12-22] MEDS: HYDROXYCHLOROQUINE 200 MG (PLAQUENIL) TAB PO SCH ×2 (10:00→20:38)
[2016-12-22] MEDS: ASPIRIN 81 MG CHEW (CHILDREN'S ASA) PO SCH (10:00)
[2016-12-22] MEDS: BENEFIBER (FROM DIETARY) DOCUMENTATION PURPOSE ONLY PO SCH ×3 (10:01→20:38)
[2016-12-22] MEDS: DIPHENOXYLATE/ATROPINE 2.5MG/0.025MG (LOMOTIL) TAB PO SCH ×2 (10:01→20:38)
[2016-12-22] MEDS: HYDROcodone/APAP 5 MG/325 MG (LORTAB) TAB PO PRN ×2 (10:01→16:56)
[2016-12-22] MEDS: TRIAMCINOLONE 0.1% CR (KENALOG) 15 GM TUBE TOP SCH ×3 (10:02→20:39)
--- NOTE | 2016-12-22 11:10 | Physical Therapy Daily Note ---
PT Daily Note-Current Subjective Pt reports he woke up at 4 am not feeling well. Reports he feels he could vomit. Agrees to participate as able. Mental Status Patient Orientation: Person, Place, Time, Situation Transfers Functional [place] Measure 0=Not Assessed/NA 4=Minimal Assistance 1=Total Assistance 5=Supervision or Setup 2=Maximal Assistance 6=Modified [place] 3=Moderate Assistance 7=Complete IndependenceIRFPAI Quality Coding Scale 6 Independent with activity with or without an assistive device 5 Patient requires set up or clean up by helper. Patient completes activity by themselves 4 Supervision or touching assist (CGA). [place] provide cues , steadying assist 3 The helper provides less than half the effort to complete the activity 2 The helper provides more than half the effort to complete the activity 1 Dependent. The helper does all the effort to complete an activity 7 Patient refused to complete or attempt activity 9 The patient did not perform the activity before the current illness or injury 88 Not attempted due to Medical conditions or safety concerns Transfers (B, C, W/C) (FIM): 4 Supine to/from Sit: 4 (assist with the R LE. ) Sit to/from Stand: 4 (min to CGA to stand with skilled cues for hand placement. ) Chair/Xdc-rh-Zhixt Xfer(QC): 4 Bed to/from Chair: 4 SPT performed x 6 reps with FWW with min-cga to stand and CGA for transfer for safety with skilled cues for safety and sequencing. Skilled education on importance of TTWB with transfer; unsure if pt able to maintain TTWB this date, thus limited the upright transfer activity. Weight Bearing Weight Bearing Restriction: Touch Toe Bearing Location Restriction: R LE Wheelchair Training Does the Pt Use a Wheelchair?: Yes Wheelchair (FIM): 4 Wheelchair Distance: 3=150 ft Type of Wheelchair: Manual 150 ft x 2 50 ft x 2 with SBA and cues for safety and making turns. Exercises Supine Ex: Ankle pumps, Pelvic tilt, Quad Set, Heel Slides, Short Arc Quads, Straight leg raise, Hip abd/add Supine Reps: 15 (to promote LE strength for safety with transfers and gait progression. Slow with exercise and needs frequent rest breaks. ) Treatments Also worked on scapular retraction and cervical extension to promote strength for improved head control and endurance to hold head in neutral positon. Pt seems to fatigue quickly with head control and tends to sit with his head forward. Assessment Current Status: Fair Progress Weakness noted. Limited functional activity tolerance. Reports not feeling well today. PT Short Term Goals Short Term Goals Time Frame: December 22, 2016 Transfers (B,C,W/C) (FIM): 4 Gait (FIM): 1 Gait Distance Comment: 20' Gait Level of Assist: 4 Gait Assistive Device: FWW Wheelchair Distance: 100' PT Women'S Lacrosse Coach Goals Women'S Lacrosse Coach Goals PT Women'S Lacrosse Coach Goals Time Frame: January 05, 2017 Transfers (B,C,W/C) (FIM): 5 Sit to Lying (QC): 4 Lying-Sitting on Side/Bed(QC): 4 Sit to Stand (QC): 4 Rollin Roll Left to Right (QC): 4 Chair/Kox-de-Mnjdu Xfer(QC): 4 Car Transfer (QC): 3 Gait (FIM): 1 Distance: 30' Walk 10 feet (QC): 4 Walk 10ft-Uneven Surface(QC): 88 Walk 50ft with 2 Turns (QC): 88 Walk 150 ft (QC): 88 Gait Level of Assist: 4 (CGA) Gait Assistive Device: FWW Stairs (FIM): 1 # of Steps: 1 1 Step (curb) (QC): 4 4 Steps (QC): 88 12 Steps (QC): 88 Stairs Level Of Assist: 4 Picking up an Object (QC): 88 PT Plan Problem List Problem List: Activity Tolerance, Functional Strength, Safety, Balance, Gait, Transfer, Bed Mobility Treatment/Plan Treatment Plan: Continue Plan of Care Treatment Plan: Bed Mobility, Education, Functional Activity Rima, Functional Strength, Group Therapy, Gait, Safety, Therapeutic Exercise, Transfers Treatment Duration: January 05, 2017 Visits Per Week: 10-11 Minutes/Day (M-F): 60-90 Minutes/Day (Sat/Chaves): 15-30 Safety Risks/Education Patient Education: Transfer Techniques, Reviewed Precautions (TTWB), Safety Issues Teaching Recipient: Patient Teaching Methods: Demonstration, Discussion Response to Teaching: Reinforcement Needed Time/GCodes Time In: 900 Time Out: 1000 Total Billed Treatment Time: 60 Total Billed Treatment visit FA 30 EX 30 JULIA MORGAN PT December 22, 2016 11:09
--- NOTE | 2016-12-22 12:52 | Occupational Ther Daily Note ---
OT Current Status-Daily Note Subjective Pt seen in room, up in bed, agreeable to OT but reported he had been feeling nauseated. He also reported that the blisters on his R leg were painful. Appearance Alert, cooperative Mental Status/Objective Functional [place] Measure 0=Not Assessed/NA 4=Minimal Assistance 1=Total Assistance 5=Supervision or Setup 2=Maximal Assistance 6=Modified [place] 3=Moderate Assistance 7=Complete [place] ADL-Treatment Areas on his R thigh that were reddened yesterday are blistered today and he has new reddened areas. Nursing looked at them and there were many symptoms similar to shingles. Medication applied to blisters by nursing. Pt decided that the areas were too painful to put pants on so he laid down with a sheet covering blisters. Functional [place] Measure 0=Not Assessed/NA 4=Minimal Assistance 1=Total Assistance 5=Supervision or Setup 2=Maximal Assistance 6=Modified [place] 3=Moderate Assistance 7=Complete IndependenceIRFPAI Quality Coding Scale 6 Independent with activity with or without an assistive device 5 Patient requires set up or clean up by helper. Patient completes activity by themselves 4 Supervision or touching assist (CGA). [place] provide cues , steadying assist 3 The helper provides less than half the effort to complete the activity 2 The helper provides more than half the effort to complete the activity 1 Dependent. The helper does all the effort to complete an activity 7 Patient refused to complete or attempt activity 9 The patient did not perform the activity before the current illness or injury 88 Not attempted due to Medical conditions or safety concerns Upper Body (FIM): 5 (Doffed and donned shirt with setup. ) Transfers (B, C, W/C) (FIM): 5 (Supine to sit EOB. SBA only. Able to sit EOB for several minutes without falling backwards and long enough to change shirts) Other Treatment Pt did 10 reps bilat UE exercise with yellow theraband. His AROM had improved with horizontal abd exercise and he increased to 10 reps. He was also able to show more range with other exercises working on shoulders and elbows and could track repetitions easily. Exercise to help strengthen arms for transfers and for walking with FWW and maintaining WB restrictions. He was left up in bed, alarm on, all needs met. Education OT Patient Education: Exercise program, Progress toward Goal/Update tx plan, Purpose of tx/functional activities Response to Teaching: Reinforcement Needed OT Short Term Goals Short Term Goals Time Frame: December 29, 2016 Upper Body Dressing(FIM): 5 Lower Body Dressing(FIM): 4 Toileting(FIM): 4 Transfers (B,C,W/C) (FIM): 4 Toilet/Commode Transfer(FIM): 4 Additional Short Term Goals: 2-Verbalize Understanding, 3-ImproveStrength/Rima 1=Demonstrate adherence to instructed precautions during ADL tasks. 2=Patient will verbalize/demonstrate understanding of assistive devices/ modifications for ADL. 3=Patient will improve strength/tolerance for activity to enable patient to perform ADL's. OT Intermediate Goals Foot Cutter Goals Time Frame: January 05, 2017 Eating (FIM): 6 Eating (QC): 6 Groomin Oral Hygiene (QC): 6 Bathing(FIM): 5 Shower/Bathe Self (QC): 5 Upper Body Dressing(FIM): 6 Upper Body Dressing (QC): 6 Lower Body Dressing(FIM): 6 Lower Body Dressing (QC): 6 On/Off Footwear (QC): 6 Toileting(FIM): 6 Toileting Hygiene (QC): 6 Toilet/Commode Transfer(FIM): 6 Toilet/Commode Transfer (QC): 6 Shower Transfer(FIM): 5 Comprehension(FIM): 4 Expression (FIM): 4 Social Interaction(FIM): 4 Problem Solving(FIM): 3 Memory(FIM): 3 Additional Goals: 2-Verbalize Understanding, 3-ImproveStrength/Rima 1=Demonstrate adherence to instructed precautions during ADL tasks. 2=Patient will verbalize/demonstrate understanding of assistive devices/ modifications for ADL. 3=Patient will improve strength/tolerance for activity to enable patient to perform ADL's. OT Education/Plan Problem List/Assessment Pt would benefit from skilled OT to increase his independence in basic self care to allow him to safely return home to live with family. Discharge Recommendations Plan/Recommendations: Continue POC Treatment Plan/Plan of Care Patient would benefit from OT for education, treatment and training to promote independence in ADL's, mobility, safety and/or upper extremity function for ADL' s. Plan of Care: ADL Retraining, Functional Mobility, Group Exercise/Act as Ind ( education, exercise, socialization, activity tolerance, memory, problem solving) , UE Funct Exercise/Act, UE Neuromus Re-Ed/Coord Treatment Duration: January 05, 2017 Visits Per Week: 10-11 Minutes/Day (M-F): 75-90 Minutes/Day (Sat/Chaves): PRN Agreement: Yes Rehab Potential: Fair Time/GCodes Start Time: 10:30 Stop Time: 11:15 Total Time Billed (hr/min): 45 Billed Treatment Time visit, 25 minutes ADL, 20 minutes exercise CHRYSTAL FREEMAN OT December 22, 2016 12:52
--- NOTE | 2016-12-22 14:17 | Speech Therapy Daily Note ---
Speech Daily Progress Note Subjective The patient was laying in bed upon entrance. The patient greeted the clinician appropriately and was agreeable to participation in the cognitive treatment session on this date. Objective Safety Problem Solving: The patient was provided images depicting safety issues in a common home environment. The patient was asked to identify the safety issue and state a solution to the problem. The patient demonstrated excellent accuracy with this task (100%), independently. Orientation: The patient was independently oriented to month, year, and location. The patient required mild verbal prompting for identification of date and day of week. Assessment Assessment Current Status: Fair Progress Treatment Plan Continue Plan of Care Communication Comprehension: 3 Expression: 3 Social Cognition Social Interaction: 3 Problem Solvin Memory: 3 Speech Short Term Goals Short Term Goals Short Term Goals 1. The patient will participate in a full evaluation of cognitive function and receptive/expressive language. MET 12/16/2016 2. The patient will demonstrate 80% accuracy with orientation information with use of the provided external aid. 3. The patient will display 80% accuracy with simple, one-step commands ( provided verbally) with mild clinician verbal cueing. 4. The patient will demonstrate 80% accuracy with structured word-finding tasks. Time Frame-STG: One Week Speech Chcf Goals Scientific Artist Goals 1. The patient will demonstrate increased cognitive skills for improved safety and function with ADL's in the least restrictive setting. Time Frame: Three Weeks Comprehension: 4 Expression: 4 Social Interaction: 4 Problem Solvin Memory: 3 Speech-Plan Treatment Plan Speech Therapy Treatment Plan: Continue Plan of Care Continue skilled speech pathology treatment for improved functional cognition. Treatment Duration: January 05, 2017 # of days/week Four to five. Visits Per Week: Four to Five Minutes/Day (M-F): 30 Rehab Potential: Fair Safety Risks/Education Teaching Recipient: Patient Teaching Methods: Discussion Response to Teaching: Return Demonstration Education Topics Provided: Orientation Strategy (External Aid) Time Speech Therapy Time In: 08:15 Speech Therapy Time Out: 08:45 Total Billed Time: 30 Billed Treatment Time MARYCHUY Nelson ELIZAVEE WOLFE December 22, 2016 14:17
--- NOTE | 2016-12-22 14:44 | Therapy Group Daily Note ---
Therapy Daily Group Note Patient Education Topic Other List Below Exercises LE Seated Exercise, Sit to/from Stand, UE Exercise Other/Notes Pt was an active participant in OT/PT group. He was on a team that answered questions for "Family Feud" type activity and was able to come up with several correct answers. During the game, he did sit to stand practice (chair pushups) and seated UE and LE exercises. At the end of the group. he was able to share an inspirational phrase or word with the group. He was transported back to his room per w/c and transferred from his w/c to recliner with min assist, FWW. Pt left up in recliner, legs elevated, all needs met. Start Time: 13:00 Stop Time: 14:15 Total Billed Treatment Time: 75 Total Billed Treatment visit, 75 minutes group CHRYSTAL FREEMAN OT December 22, 2016 14:44
[2016-12-22 18:00] VITALS: BP 120/83
[2016-12-22] MEDS: SERTRALINE 50 MG (ZOLOFT) TABLET PO SCH (20:38)
[2016-12-22] MEDS: MIRTAZAPINE 15 MG (REMERON) TAB PO SCH (20:38)
[2016-12-23 05:00] VITALS: BP 144/84
[2016-12-23] MEDS: LEVOTHYROXINE 150 MCG (LEVOTHROID) TAB PO SCH (05:11)
[2016-12-23] MEDS: HYDROcodone/APAP 5 MG/325 MG (LORTAB) TAB PO PRN ×3 (05:11→20:07)
[2016-12-23] MEDS: LACTOBACILLUS Acidoph/Bulgar (LACTINEX/FLORANEX) TAB PO SCH ×3 (05:12→17:01)
[2016-12-23] MEDS: LEVOTHYROXINE 25 MCG (LEVOTHROID) TAB PO SCH (05:12)
[2016-12-23 06:15] LABS: MEAN PLATELET VOLUME 10.2 FL (7.4-10.4); RED BLOOD COUNT 3.64 10^6/uL (4.35-5.85); WHITE BLOOD COUNT 5.8 10^3/uL (4.3-11.0)
[2016-12-23] MEDS: FERROUS SULF 325 MG (IRON) TAB PO SCH ×3 (06:26→17:01)
[2016-12-23] MEDS: LIPASE/AMYLASE/PROTEASE (PANCRELIPASE) 5,000 UNITS CAP PO SCH ×3 (06:26→17:01)
[2016-12-23] MEDS: FOLIC ACID 1 MG TAB PO SCH (06:26)
[2016-12-23] MEDS: THIAMINE 100 MG (VITAMIN B-1) TAB PO SCH (06:26)
[2016-12-23] MEDS: MULTIVIT W/MINERALS TAB (THERAGRAN M) PO SCH (06:26)
[2016-12-23] MEDS: PANTOPRAZOLE 40 MG (PROTONIX) TAB PO SCH (06:26)
--- NOTE | 2016-12-23 07:44 | Progress Note (SOAP) ---
Subjective Subjective/Events-last exam hepatitis C. Confusion. Contact dermatitis of groin area improving Objective Exam Vital Signs Date Time Temp Pulse Resp B/P (MAP) Pulse Ox O2 Delivery O2 Flow Rate FiO2 12/23/16 05:00 98.2 91 18 144/84 98 12/22/16 18:00 98.2 93 16 120/83 100 I & O 12/23/16 07:00 Intake Total 1360 ml Output Total 2701 ml Balance -1341 ml Capillary Refill : General Appearance: No Apparent Distress, Thin HEENT: Normal ENT Inspection Neck: Normal Inspection Cardiovascular: Regular Rate, Rhythm, No Murmur Gastrointestinal: non tender, soft Results Lab Laboratory Tests 12/22/16 16:35: Glucometer 163H 12/23/16 05:32: White Blood Count 5.8, Red Blood Count 3.64L, Hemoglobin 10.4L, Hematocrit 32L, Mean Corpuscular Volume 87, Mean Corpuscular Hemoglobin 29, Mean Corpuscular Hemoglobin Concent 33, Red Cell Distribution Width 16.0H, Platelet Count 355, Mean Platelet Volume 10.2 12/23/16 05:51: Glucometer 91 Assessment/Plan Assessment/Plan Assess & Plan/Chief Complaint Confusion. Hepatitis C. Right leg pain. . 12/19/16. Confusion. Hepatitis C. Right leg pain. Patient to have psych evaluate today. . 12/20/16. Hepatitis C. Debility. Less confusion today. Patient refused psych evaluation. . 12/21/16. Confusion is better. blisters his right leg and back has his diaper on. Patient weak. . 12/22/16.. Patient still has confusion. debility. Patient working progress. . 12/23/16. Confusion. Patient states he's in [facility] area Patient did not sleep good last night. Rash in groin improving Clinical Quality Measures DVT/VTE Risk/Contraindication: Risk Factor Score Per Nursin RFS Level Per Nursing on Admit: 4+=Very High KUSHAL CRAVEN DO December 23, 2016 07:44
[2016-12-23] MEDS: DRONABINOL 2.5 MG (MARINOL) CAP PO SCH (08:45)
[2016-12-23] MEDS: TRIAMCINOLONE 0.1% CR (KENALOG) 15 GM TUBE TOP SCH ×3 (08:46→20:09)
[2016-12-23] MEDS: HYDROXYCHLOROQUINE 200 MG (PLAQUENIL) TAB PO SCH ×2 (08:46→20:08)
[2016-12-23] MEDS: DIPHENOXYLATE/ATROPINE 2.5MG/0.025MG (LOMOTIL) TAB PO SCH ×2 (08:46→20:08)
[2016-12-23] MEDS: BENEFIBER (FROM DIETARY) DOCUMENTATION PURPOSE ONLY PO SCH ×3 (08:46→20:09)
[2016-12-23] MEDS: ASPIRIN 81 MG CHEW (CHILDREN'S ASA) PO SCH (08:46)
--- NOTE | 2016-12-23 09:55 | Physical Therapy Daily Note ---
PT Daily Note-Current Subjective Pt. in bed states he has pain at 9/10" b/c of this rash, they think I may have shingles". This MAT SEWER encouraged pt. to get up and about if he can tolerate it at all as this would be good for lungs , skin, circulatory system etc. Pt. agrees Pain Numeric Pain Scale: 9 Location: Right Location Body Site: Thigh (inner groin area) Pain Description: Burning Appearance blistered red area inside right thigh area which appear to be shingles to this MAT SEWER. Mental Status Attachments: Other-See Comments (splint RLE) Transfers Functional [place] Measure 0=Not Assessed/NA 4=Minimal Assistance 1=Total Assistance 5=Supervision or Setup 2=Maximal Assistance 6=Modified [place] 3=Moderate Assistance 7=Complete IndependenceIRFPAI Quality Coding Scale 6 Independent with activity with or without an assistive device 5 Patient requires set up or clean up by helper. Patient completes activity by themselves 4 Supervision or touching assist (CGA). [place] provide cues , steadying assist 3 The helper provides less than half the effort to complete the activity 2 The helper provides more than half the effort to complete the activity 1 Dependent. The helper does all the effort to complete an activity 7 Patient refused to complete or attempt activity 9 The patient did not perform the activity before the current illness or injury 88 Not attempted due to Medical conditions or safety concerns Transfers (B, C, W/C) (FIM): 5 Scootin Rollin Supine to/from Sit: 5 (this took time but pt. was indep) Sit to/from Stand: 4 Sit to Lying (QC): 4 Bed to/from Chair: 4 Weight Bearing Weight Bearing Restriction: Touch Toe Bearing (unsure pt. maintains this consistnently) Location Restriction: R LE Gait Training Does the Patient Walk?: Yes Gait (FIM): 1 Distance (FIM): 1=up to 49 ft (10ft,5ft) Gait Level of Assist: 4 Gait Persons Needed: 1 Gait Assistive Device: FWW low, no reid LOB but pt. with pain c/o and not consistently maintaining TTWB Exercises Supine Ex: Bridging, Ankle pumps, Quad Set, Rolling, Glut sets, Heel Slides ( left), Short Arc Quads (left), Scooting (up in bed indep but slow), Straight leg raise (left indep, right with assist), Hip abd/add Assessment Current Status: Fair Progress Infection control nurse called to assess pts rash and also believes this shingles, now in contact precaution isolation PT Short Term Goals Short Term Goals Time Frame: December 22, 2016 Transfers (B,C,W/C) (FIM): 4 Gait (FIM): 1 Gait Distance Comment: 20' Gait Level of Assist: 4 Gait Assistive Device: FWW Wheelchair Distance: 100' PT [employer] Teacher Goals Longterm Goals PT Longterm Goals Time Frame: January 05, 2017 Transfers (B,C,W/C) (FIM): 5 Sit to Lying (QC): 4 Lying-Sitting on Side/Bed(QC): 4 Sit to Stand (QC): 4 Rollin Roll Left to Right (QC): 4 Chair/Dbe-oi-Nundb Xfer(QC): 4 Car Transfer (QC): 3 Gait (FIM): 1 Distance: 30' Walk 10 feet (QC): 4 Walk 10ft-Uneven Surface(QC): 88 Walk 50ft with 2 Turns (QC): 88 Walk 150 ft (QC): 88 Gait Level of Assist: 4 (CGA) Gait Assistive Device: FWW Stairs (FIM): 1 # of Steps: 1 1 Step (curb) (QC): 4 4 Steps (QC): 88 12 Steps (QC): 88 Stairs Level Of Assist: 4 Picking up an Object (QC): 88 PT Plan Treatment/Plan Treatment Plan: Continue Plan of Care Treatment Plan: Bed Mobility, Education, Functional Activity Rima, Functional Strength, Group Therapy, Gait, Safety, Therapeutic Exercise, Transfers Treatment Duration: January 05, 2017 Visits Per Week: 10-11 Minutes/Day (M-F): 60-90 Minutes/Day (Sat/Chaves): 15-30 Safety Risks/Education Patient Education: Gait Training, Transfer Techniques, Correct Positioning, Disease Process, Safety Issues Teaching Recipient: Patient Teaching Methods: Demonstration, Discussion Response to Teaching: Unable to Return Demonstration, Unable to Comprehend, Reinforcement Needed still not TTWB consistently Time/GCodes Time In: 900 Time Out: 1000 Total Billed Treatment Time: 60 Total Billed Treatment 1,FA25m,GT15m,EX20m G Codes Necessary: MARIS [place] MAT SEWER December 23, 2016 09:55
--- NOTE | 2016-12-23 11:13 | Speech Therapy Daily Note ---
Speech Daily Progress Note Subjective The patient was laying in bed upon entrance. The patient greeted the clinician appropriately and was agreeable to participation in cognitive therapy, however, did report increased fatigue on this date. Objective To reassess the patient's progress, a cognitive re-evaluation was performed. Below are the results: - Visuospatial/Executive Function: The patient was able to accurately draw a clock, however, demonstrated difficulty with trail-making and cube copying. - Naming: The patient was able to name three of three items. - Attention: The patient was able to repeat five digits, identify a letter in a string of letters, and complete serial seven subtraction. - Language: The patient continues to demonstrate word-finding difficulty, however, was able to repeat simple phrases. - Memory: The patient was able to recall two of five items following a five minute delay and five of five items providing category and multiple choice cues. - Orientation: The patient was oriented to month, year, place, and city. The patient demonstrated a score of +22/30 (mild cognitive impairment) which is an improvement from initial assessment of +15/30 (moderate cognitive impairment) . Assessment Assessment Current Status: Good Progress Treatment Plan Continue Plan of Care Communication Comprehension: 3 Expression: 3 Social Cognition Social Interaction: 4 Problem Solvin Memory: 2 Speech Short Term Goals Short Term Goals Short Term Goals 1. The patient will participate in a full evaluation of cognitive function and receptive/expressive language. MET 12/16/2016 2. The patient will demonstrate 80% accuracy with orientation information with use of the provided external aid. 3. The patient will display 80% accuracy with simple, one-step commands ( provided verbally) with mild clinician verbal cueing. 4. The patient will demonstrate 80% accuracy with structured word-finding tasks. Time Frame-STG: One Week Speech Retirement Goals Retirement Goals 1. The patient will demonstrate increased cognitive skills for improved safety and function with ADL's in the least restrictive setting. Time Frame: Three Weeks Comprehension: 4 Expression: 4 Social Interaction: 4 Problem Solvin Memory: 3 Speech-Plan Treatment Plan Speech Therapy Treatment Plan: Continue Plan of Care Continue skilled speech pathology to target improved functional problem solving. Treatment Duration: January 05, 2017 # of days/week Four to five. Visits Per Week: Four to Five Minutes/Day (M-F): 30 Rehab Potential: Fair Safety Risks/Education Teaching Recipient: Patient Teaching Methods: Demonstration Response to Teaching: Return Demonstration Education Topics Provided: Orientation Strategies Time Speech Therapy Time In: 08:15 Speech Therapy Time Out: 08:45 Total Billed Time: 30 Billed Treatment Time 1MARYCHUY ELIZABETH ST December 23, 2016 11:13
--- NOTE | 2016-12-23 13:44 | Occupational Ther Daily Note ---
OT Current Status-Daily Note Subjective Pt seen in room, up in recliner, agreeable to OT. Did not want to shower because he said he did not sleep well last night. Reported pain 8/10 in R thigh where he has blisters and rash. Appearance Alert, cooperative Mental Status/Objective Functional [place] Measure 0=Not Assessed/NA 4=Minimal Assistance 1=Total Assistance 5=Supervision or Setup 2=Maximal Assistance 6=Modified [place] 3=Moderate Assistance 7=Complete [place] ADL-Treatment Pt seems to have more blisters on R thigh but some have popped. Functional [place] Measure 0=Not Assessed/NA 4=Minimal Assistance 1=Total Assistance 5=Supervision or Setup 2=Maximal Assistance 6=Modified [place] 3=Moderate Assistance 7=Complete IndependenceIRFPAI Quality Coding Scale 6 Independent with activity with or without an assistive device 5 Patient requires set up or clean up by helper. Patient completes activity by themselves 4 Supervision or touching assist (CGA). [place] provide cues , steadying assist 3 The helper provides less than half the effort to complete the activity 2 The helper provides more than half the effort to complete the activity 1 Dependent. The helper does all the effort to complete an activity 7 Patient refused to complete or attempt activity 9 The patient did not perform the activity before the current illness or injury 88 Not attempted due to Medical conditions or safety concerns Grooming (FIM): 5 (Washed face and hands with setup. Brushed teeth with setup.) Bathing (FIM): 5 (Washed and dried all parts, sponge bath, setup. SBA to stand to wash bottom, FWW.) Upper Body (FIM): 5 (setup, t shirt) Lower Body Dressing (FIM): 5 (Slipper socks off and on with setup. Pants off and on, SBA when standing to pull them up, FWW) Toileting (FIM): 5 (Able to manage clothing to use urinal but needs help emptying it) All ADLs took longer than usual due to pt fatigue and need to rest between steps in ADLs. For example, he rested after putting on one sock. Education OT Patient Education: Modified ADL techniques, Progress toward Goal/Update tx plan, Purpose of tx/functional activities Teaching Recipient: Patient Teaching Methods: Discussion Response to Teaching: Verbalize Understanding OT Short Term Goals Short Term Goals Time Frame: December 29, 2016 Upper Body Dressing(FIM): 5 Lower Body Dressing(FIM): 4 Toileting(FIM): 4 Transfers (B,C,W/C) (FIM): 4 Toilet/Commode Transfer(FIM): 4 Additional Short Term Goals: 2-Verbalize Understanding, 3-ImproveStrength/Rima 1=Demonstrate adherence to instructed precautions during ADL tasks. 2=Patient will verbalize/demonstrate understanding of assistive devices/ modifications for ADL. 3=Patient will improve strength/tolerance for activity to enable patient to perform ADL's. OT Rating Examiner Goals Rating Examiner Goals Time Frame: January 05, 2017 Eating (FIM): 6 Eating (QC): 6 Groomin Oral Hygiene (QC): 6 Bathing(FIM): 5 Shower/Bathe Self (QC): 5 Upper Body Dressing(FIM): 6 Upper Body Dressing (QC): 6 Lower Body Dressing(FIM): 6 Lower Body Dressing (QC): 6 On/Off Footwear (QC): 6 Toileting(FIM): 6 Toileting Hygiene (QC): 6 Toilet/Commode Transfer(FIM): 6 Toilet/Commode Transfer (QC): 6 Shower Transfer(FIM): 5 Comprehension(FIM): 4 Expression (FIM): 4 Social Interaction(FIM): 4 Problem Solving(FIM): 3 Memory(FIM): 3 Additional Goals: 2-Verbalize Understanding, 3-ImproveStrength/Rima 1=Demonstrate adherence to instructed precautions during ADL tasks. 2=Patient will verbalize/demonstrate understanding of assistive devices/ modifications for ADL. 3=Patient will improve strength/tolerance for activity to enable patient to perform ADL's. OT Education/Plan Problem List/Assessment Pt would benefit from skilled OT to increase his independence in basic self care to allow him to safely return home to live with family. Discharge Recommendations Plan/Recommendations: Continue POC Treatment Plan/Plan of Care Patient would benefit from OT for education, treatment and training to promote independence in ADL's, mobility, safety and/or upper extremity function for ADL' s. Plan of Care: ADL Retraining, Functional Mobility, Group Exercise/Act as Ind ( education, exercise, socialization, activity tolerance, memory, problem solving) , UE Funct Exercise/Act, UE Neuromus Re-Ed/Coord Treatment Duration: January 05, 2017 Visits Per Week: 10-11 Minutes/Day (M-F): 75-90 Minutes/Day (Sat/Chaves): PRN Agreement: Yes Rehab Potential: Fair Time/GCodes Start Time: 10:25 Stop Time: 11:10 Total Time Billed (hr/min): 45 Billed Treatment Time visit, 45 minutes CHRYSTAL PADILLA OT December 23, 2016 13:44
--- NOTE | 2016-12-23 13:53 | Occupational Ther Daily Note ---
OT Current Status-Daily Note Subjective Pt seen in room, up in recliner, asleep. Reported some pain R thigh (not scored ) and also said they are starting to itch. Appearance Alert, cooperative. Oriented to name, location, situation. Close on date - month and year correct. Mental Status/Objective Functional [place] Measure 0=Not Assessed/NA 4=Minimal Assistance 1=Total Assistance 5=Supervision or Setup 2=Maximal Assistance 6=Modified [place] 3=Moderate Assistance 7=Complete [place] ADL-Treatment Functional [place] Measure 0=Not Assessed/NA 4=Minimal Assistance 1=Total Assistance 5=Supervision or Setup 2=Maximal Assistance 6=Modified [place] 3=Moderate Assistance 7=Complete IndependenceIRFPAI Quality Coding Scale 6 Independent with activity with or without an assistive device 5 Patient requires set up or clean up by helper. Patient completes activity by themselves 4 Supervision or touching assist (CGA). [place] provide cues , steadying assist 3 The helper provides less than half the effort to complete the activity 2 The helper provides more than half the effort to complete the activity 1 Dependent. The helper does all the effort to complete an activity 7 Patient refused to complete or attempt activity 9 The patient did not perform the activity before the current illness or injury 88 Not attempted due to Medical conditions or safety concerns Other Treatment Pt did bilat UE exercise with yellow theraband - 10 reps each of 5 exercises. He displayed increased range, especially with shoulder abduction. He also did bilat UE ex with 2# weight. it was too heavy for shoulder flex - he could do only 2 reps bilat. He was able to do 10 reps bilat elbow flexion, pron/sup and wrist flex (2# is maximum weight for him now). He could do 5 reps bilat reaching to ceiling (for triceps). UE ex to help with transfers and ADLS and strength for functional activities. Pt left up in recliner, all needs met. Education OT Patient Education: Exercise program, Purpose of tx/functional activities Teaching Recipient: Patient Teaching Methods: Discussion Response to Teaching: Verbalize Understanding OT Short Term Goals Short Term Goals Time Frame: December 29, 2016 Upper Body Dressing(FIM): 5 Lower Body Dressing(FIM): 4 Toileting(FIM): 4 Transfers (B,C,W/C) (FIM): 4 Toilet/Commode Transfer(FIM): 4 Additional Short Term Goals: 2-Verbalize Understanding, 3-ImproveStrength/Rima 1=Demonstrate adherence to instructed precautions during ADL tasks. 2=Patient will verbalize/demonstrate understanding of assistive devices/ modifications for ADL. 3=Patient will improve strength/tolerance for activity to enable patient to perform ADL's. OT Jail Goals Jail Goals Time Frame: January 05, 2017 Eating (FIM): 6 Eating (QC): 6 Groomin Oral Hygiene (QC): 6 Bathing(FIM): 5 Shower/Bathe Self (QC): 5 Upper Body Dressing(FIM): 6 Upper Body Dressing (QC): 6 Lower Body Dressing(FIM): 6 Lower Body Dressing (QC): 6 On/Off Footwear (QC): 6 Toileting(FIM): 6 Toileting Hygiene (QC): 6 Toilet/Commode Transfer(FIM): 6 Toilet/Commode Transfer (QC): 6 Shower Transfer(FIM): 5 Comprehension(FIM): 4 Expression (FIM): 4 Social Interaction(FIM): 4 Problem Solving(FIM): 3 Memory(FIM): 3 Additional Goals: 2-Verbalize Understanding, 3-ImproveStrength/Rima 1=Demonstrate adherence to instructed precautions during ADL tasks. 2=Patient will verbalize/demonstrate understanding of assistive devices/ modifications for ADL. 3=Patient will improve strength/tolerance for activity to enable patient to perform ADL's. OT Education/Plan Problem List/Assessment Pt would benefit from skilled OT to increase his independence in basic self care to allow him to safely return home to live with family. Discharge Recommendations Plan/Recommendations: Continue POC Treatment Plan/Plan of Care Patient would benefit from OT for education, treatment and training to promote independence in ADL's, mobility, safety and/or upper extremity function for ADL' s. Plan of Care: ADL Retraining, Functional Mobility, Group Exercise/Act as Ind ( education, exercise, socialization, activity tolerance, memory, problem solving) , UE Funct Exercise/Act, UE Neuromus Re-Ed/Coord Treatment Duration: January 05, 2017 Visits Per Week: 10-11 Minutes/Day (M-F): 75-90 Minutes/Day (Sat/Chaves): PRN Agreement: Yes Rehab Potential: Fair Time/GCodes Start Time: 12:48 Stop Time: 13:18 Total Time Billed (hr/min): 30 Billed Treatment Time visit, 30 minutes exercise CHRYSTAL FREEMAN OT December 23, 2016 13:53
--- NOTE | 2016-12-23 14:02 | Physical Therapy Daily Note ---
PT Daily Note-Current Subjective Patient in recliner pre tx, agrees to PT, has pain of 7/10 in right leg. Appearance Patient in bed post tx with nurse call, phone, tray, right knee immobilizer, bed alarm on. Mental Status Patient Orientation: Person, Place, Situation Transfers Functional [place] Measure 0=Not Assessed/NA 4=Minimal Assistance 1=Total Assistance 5=Supervision or Setup 2=Maximal Assistance 6=Modified [place] 3=Moderate Assistance 7=Complete IndependenceIRFPAI Quality Coding Scale 6 Independent with activity with or without an assistive device 5 Patient requires set up or clean up by helper. Patient completes activity by themselves 4 Supervision or touching assist (CGA). [place] provide cues , steadying assist 3 The helper provides less than half the effort to complete the activity 2 The helper provides more than half the effort to complete the activity 1 Dependent. The helper does all the effort to complete an activity 7 Patient refused to complete or attempt activity 9 The patient did not perform the activity before the current illness or injury 88 Not attempted due to Medical conditions or safety concerns Transfers (B, C, W/C) (FIM): 4 Scootin Rollin Supine to/from Sit: 4 Sit to/from Stand: 4 transfers CGA, needed min assist getting his right leg into bed. Gait Training Gait (FIM): 1 Distance: 20' Gait Level of Assist: 4 Gait Persons Needed: 1 Gait Assistive Device: FWW CGA, questionable whether patient puts too much weight through his right leg Exercises Supine Ex: Ankle pumps, Quad Set, Glut sets, Heel Slides, Short Arc Quads, Straight leg raise, Hip abd/add Supine Reps: 20 only QS, GS, AP, SLR Treatments bed mobility and transfers, ambulation, functional strengthening Assessment Current Status: Fair Progress improving ambulation and transfers PT Short Term Goals Short Term Goals Time Frame: December 22, 2016 Transfers (B,C,W/C) (FIM): 4 Gait (FIM): 1 Gait Distance Comment: 20' Gait Level of Assist: 4 Gait Assistive Device: FWW Wheelchair Distance: 100' PT Group Home Goals Group Home Goals PT Group Home Goals Time Frame: January 05, 2017 Transfers (B,C,W/C) (FIM): 5 Sit to Lying (QC): 4 Lying-Sitting on Side/Bed(QC): 4 Sit to Stand (QC): 4 Rollin Roll Left to Right (QC): 4 Chair/Mwh-gx-Flbvb Xfer(QC): 4 Car Transfer (QC): 3 Gait (FIM): 1 Distance: 30' Walk 10 feet (QC): 4 Walk 10ft-Uneven Surface(QC): 88 Walk 50ft with 2 Turns (QC): 88 Walk 150 ft (QC): 88 Gait Level of Assist: 4 (CGA) Gait Assistive Device: FWW Stairs (FIM): 1 # of Steps: 1 1 Step (curb) (QC): 4 4 Steps (QC): 88 12 Steps (QC): 88 Stairs Level Of Assist: 4 Picking up an Object (QC): 88 PT Plan Problem List Problem List: Activity Tolerance, Functional Strength, Safety, Balance, Gait, Transfer, Bed Mobility, ROM Treatment/Plan Treatment Plan: Continue Plan of Care Treatment Plan: Bed Mobility, Education, Functional Activity Rima, Functional Strength, Group Therapy, Gait, Safety, Therapeutic Exercise, Transfers Treatment Duration: January 05, 2017 Visits Per Week: 10-11 Minutes/Day (M-F): 60-90 Minutes/Day (Sat/Chaves): 15-30 Safety Risks/Education Patient Education: Gait Training, Transfer Techniques, Correct Positioning, Safety Issues Teaching Recipient: Patient Teaching Methods: Demonstration, Discussion Response to Teaching: Reinforcement Needed Time/GCodes Time In: 1330 Time Out: 1400 Total Billed Treatment Time: 30 Total Billed Treatment 1 visit GT 15' EX 15' DOLORES MACEDO PT December 23, 2016 14:02
--- NOTE | 2016-12-23 14:16 | PM & R (SOAP) Progress Note ---
Subjective Subjective/Events-last exam Patient was seen in his room this AM.Discussed case with RN Patient with blisters -fluid filled over rt anterior thigh DR Fulton treating as contact dermatitis.Patient TTWB RLE s/p fall with resulting nondisplaced frx tibial plateau.Patient mod assist for transfers Review of Systems Musculoskeletal: leg pain Objective Exam Last Set of Vital Signs Vital Signs Date Time Temp Pulse Resp B/P (MAP) Pulse Ox O2 Delivery O2 Flow Rate FiO2 12/23/16 05:00 98.2 91 18 144/84 98 12/22/16 05:00 Room Air Capillary Refill : I&O Intake and Output 12/23/16 00:00 Intake Total 1420 ml Output Total 3101 ml Balance -1681 ml Intake Oral 1420 ml Output Urine Total 3101 ml # Bowel Movements 3 General: Alert, Cooperative, No Acute Distress, Other (Speech therapy reports cognitively improving) HEENT: Atraumatic, PERRLA, EOMI, Mucous Memb Moist/[place] Neck: Supple, No JVD Lungs: Clear to Auscultation Heart: Regular Rate Abdomen: Normal Bowel Sounds, Soft, No Tenderness Extremities: Other (Knee immobilizer rt leg) Neuro: Other (Generalized weakness) Results Lab Laboratory Tests 12/20/16 15:59: Glucometer 104 12/21/16 05:36: Glucometer 83 12/21/16 06:04: White Blood Count 6.6, Red Blood Count 3.72L, Hemoglobin 10.5L, Hematocrit 32L, Mean Corpuscular Volume 86, Mean Corpuscular Hemoglobin 28, Mean Corpuscular Hemoglobin Concent 33, Red Cell Distribution Width 15.8H, Platelet Count 388, Mean Platelet Volume 10.1, Sodium Level 139, Potassium Level 3.6, Chloride Level 107, Carbon Dioxide Level 25, Anion Gap 7, Blood Urea Nitrogen 9, Creatinine 0.69, Estimat Glomerular Filtration Rate > 60, BUN/Creatinine Ratio 13, Glucose Level 83, Calcium Level 8.6, Total Bilirubin 0.6, Aspartate Amino Transf (AST/SGOT) 50H, Alanine Aminotransferase (ALT/SGPT) 36, Alkaline Phosphatase 170H, Total Protein 5.8L, Albumin 1.9L 12/21/16 15:54: Glucometer 162H 12/22/16 06:32: Glucometer 78 12/22/16 16:35: Glucometer 163H 12/23/16 05:32: White Blood Count 5.8, Red Blood Count 3.64L, Hemoglobin 10.4L, Hematocrit 32L, Mean Corpuscular Volume 87, Mean Corpuscular Hemoglobin 29, Mean Corpuscular Hemoglobin Concent 33, Red Cell Distribution Width 16.0H, Platelet Count 355, Mean Platelet Volume 10.2 12/23/16 05:51: Glucometer 91 Assessment/Plan Assessment Rt Tibial plateua frx s/p fall managed with TTWB RLE and knee immobilizer Blisters rt thigh being treated with topical care DM on meds RA on meds Plan ContinuePT/OT/Skin care and pain management Monitor accucheks and adjust meds as needed F/U with ARCHANA Olson MD December 23, 2016 14:16
[2016-12-23 18:22] VITALS: BP 137/88
[2016-12-23] MEDS: SERTRALINE 50 MG (ZOLOFT) TABLET PO SCH (20:08)
[2016-12-23] MEDS: MIRTAZAPINE 15 MG (REMERON) TAB PO SCH (20:08)
[2016-12-24 06:00] VITALS: BP 110/72
[2016-12-24] MEDS: THIAMINE 100 MG (VITAMIN B-1) TAB PO SCH (06:22)
[2016-12-24] MEDS: FERROUS SULF 325 MG (IRON) TAB PO SCH ×3 (06:22→17:04)
[2016-12-24] MEDS: LEVOTHYROXINE 150 MCG (LEVOTHROID) TAB PO SCH (06:22)
[2016-12-24] MEDS: LACTOBACILLUS Acidoph/Bulgar (LACTINEX/FLORANEX) TAB PO SCH ×3 (06:22→16:57)
[2016-12-24] MEDS: PANTOPRAZOLE 40 MG (PROTONIX) TAB PO SCH (06:22)
[2016-12-24] MEDS: LEVOTHYROXINE 25 MCG (LEVOTHROID) TAB PO SCH (06:22)
[2016-12-24] MEDS: LIPASE/AMYLASE/PROTEASE (PANCRELIPASE) 5,000 UNITS CAP PO SCH ×3 (06:22→17:04)
[2016-12-24] MEDS: MULTIVIT W/MINERALS TAB (THERAGRAN M) PO SCH (06:22)
[2016-12-24] MEDS: FOLIC ACID 1 MG TAB PO SCH (06:22)
[2016-12-24] MEDS: DRONABINOL 2.5 MG (MARINOL) CAP PO SCH (08:21)
[2016-12-24] MEDS: BENEFIBER (FROM DIETARY) DOCUMENTATION PURPOSE ONLY PO SCH ×3 (08:21→21:16)
[2016-12-24] MEDS: DIPHENOXYLATE/ATROPINE 2.5MG/0.025MG (LOMOTIL) TAB PO SCH ×2 (08:21→21:15)
[2016-12-24] MEDS: HYDROXYCHLOROQUINE 200 MG (PLAQUENIL) TAB PO SCH ×2 (08:21→21:15)
[2016-12-24] MEDS: ASPIRIN 81 MG CHEW (CHILDREN'S ASA) PO SCH (08:21)
--- NOTE | 2016-12-24 09:32 | Physical Therapy Daily Note ---
PT Daily Note-Current Subjective Pt is laying Supine in bed upon arrival. Pt reports feeling very weak, in a lot of pain all over his body and having stomach discomfort. Pt requests assistance to use restroom. Pt agrees to PT. Pain Numeric Pain Scale: 10-Worst Possible Pain Pain Description: Ache Comment: Pt reports pain all over body including head, UE/LE. Mental Status Patient Orientation: Person, Place, Situation Attachments: Other-See Comments (Knee Brace) Transfers Functional [place] Measure 0=Not Assessed/NA 4=Minimal Assistance 1=Total Assistance 5=Supervision or Setup 2=Maximal Assistance 6=Modified [place] 3=Moderate Assistance 7=Complete IndependenceIRFPAI Quality Coding Scale 6 Independent with activity with or without an assistive device 5 Patient requires set up or clean up by helper. Patient completes activity by themselves 4 Supervision or touching assist ([facility]). [place] provide cues , steadying assist 3 The helper provides less than half the effort to complete the activity 2 The helper provides more than half the effort to complete the activity 1 Dependent. The helper does all the effort to complete an activity 7 Patient refused to complete or attempt activity 9 The patient did not perform the activity before the current illness or injury 88 Not attempted due to Medical conditions or safety concerns Scootin Rollin Roll Left to Right (QC): 5 Supine to/from Sit: 5 Sit to/from Stand: 4 Sit to Lying (QC): 4 Sit to Stand (QC): 4 Chair/Mbf-aq-Qrjij Xfer(QC): 4 Bed to/from Chair: 4 Weight Bearing Weight Bearing Restriction: Touch Toe Bearing Location Restriction: R LE Pt doesn't always adhere to WB Status. Treatments Pt requested assistance to restroom and stated he was too weak to walk so pt transferred to [facility] SPT from bed at [facility]. PT propelled pt to restroom and pt transferred SPT to toilet at [facility]. Pt then transferred back to [facility] before transferring to Supine in bed at [facility]. Pt is left sidelying in bed with all needs met at end of tx. Assessment Current Status: Poor Progress Pt was very weak and tired as well as in pain. PT notified nurse and ordered pt a Diet Sprite per pt request. PT Short Term Goals Short Term Goals Time Frame: December 22, 2016 Transfers (B,C,W/C) (FIM): 4 Gait (FIM): 1 Gait Distance Comment: 20' Gait Level of Assist: 4 Gait Assistive Device: FWW Wheelchair Distance: 100' PT Detention Goals Advance Agent Goals PT Detention Goals Time Frame: January 05, 2017 Transfers (B,C,W/C) (FIM): 5 Sit to Lying (QC): 4 Lying-Sitting on Side/Bed(QC): 4 Sit to Stand (QC): 4 Rollin Roll Left to Right (QC): 4 Chair/Cfk-zk-Miqkx Xfer(QC): 4 Car Transfer (QC): 3 Gait (FIM): 1 Distance: 30' Walk 10 feet (QC): 4 Walk 10ft-Uneven Surface(QC): 88 Walk 50ft with 2 Turns (QC): 88 Walk 150 ft (QC): 88 Gait Level of Assist: 4 (CGA) Gait Assistive Device: FWW Stairs (FIM): 1 # of Steps: 1 1 Step (curb) (QC): 4 4 Steps (QC): 88 12 Steps (QC): 88 Stairs Level Of Assist: 4 Picking up an Object (QC): 88 PT Plan Problem List Problem List: Activity Tolerance, Functional Strength, Safety, Balance, Gait, Transfer, Bed Mobility Treatment/Plan Treatment Plan: Continue Plan of Care Treatment Plan: Bed Mobility, Education, Functional Activity Rima, Functional Strength, Group Therapy, Gait, Safety, Therapeutic Exercise, Transfers Treatment Duration: January 05, 2017 Visits Per Week: 10-11 Minutes/Day (M-F): 60-90 Minutes/Day (Sat/Chaves): 15-30 Safety Risks/Education Patient Education: Gait Training, Transfer Techniques, Correct Positioning, Disease Process, Safety Issues Teaching Recipient: Patient Teaching Methods: Discussion Response to Teaching: Verbalize Understanding Time/GCodes Time In: 840 Time Out: 855 Total Billed Treatment Time: 15 Total Billed Treatment visit, FA (15m) CLAUDINE SCHROEDER PTA December 24, 2016 09:32
[2016-12-24] MEDS: TRIAMCINOLONE 0.1% CR (KENALOG) 15 GM TUBE TOP SCH ×3 (09:41→21:16)
[2016-12-24] MEDS: HYDROcodone/APAP 5 MG/325 MG (LORTAB) TAB PO PRN ×2 (09:41→21:15)
[2016-12-24 19:09] VITALS: BP 123/77
[2016-12-24] MEDS: SERTRALINE 50 MG (ZOLOFT) TABLET PO SCH (21:15)
[2016-12-24] MEDS: MIRTAZAPINE 15 MG (REMERON) TAB PO SCH (21:15)
--- NOTE | 2016-12-24 21:20 | PM & R (SOAP) Progress Note ---
Subjective Subjective/Events-last exam Patient was seen in his room earlier today Patient min assist for transfers Blisters rt thigh improving no drainage noted Review of Systems Musculoskeletal: leg pain Objective Exam Last Set of Vital Signs Vital Signs Date Time Temp Pulse Resp B/P (MAP) Pulse Ox O2 Delivery O2 Flow Rate FiO2 12/24/16 06:00 100.2 86 16 110/72 97 12/22/16 05:00 Room Air Capillary Refill : I&O Intake and Output 12/24/16 00:00 Intake Total 1240 ml Output Total 1100 ml Balance 140 ml Intake Oral 1240 ml Output Urine Total 1100 ml # Voids 1 General: Alert, Cooperative, No Acute Distress, Other (Speech therapy reports cognitively improving) HEENT: Atraumatic, PERRLA, EOMI, Mucous Memb Moist/[place] Neck: Supple, No JVD Lungs: Clear to Auscultation Heart: Regular Rate Abdomen: Normal Bowel Sounds, Soft, No Tenderness Extremities: Other (Knee immobilizer rt leg) Skin: Other (blisters rt anterior thigh improving) Neuro: Other (Generalized weakness) Results Lab Laboratory Tests 12/22/16 06:32: Glucometer 78 12/22/16 16:35: Glucometer 163H 12/23/16 05:32: White Blood Count 5.8, Red Blood Count 3.64L, Hemoglobin 10.4L, Hematocrit 32L, Mean Corpuscular Volume 87, Mean Corpuscular Hemoglobin 29, Mean Corpuscular Hemoglobin Concent 33, Red Cell Distribution Width 16.0H, Platelet Count 355, Mean Platelet Volume 10.2 12/23/16 05:51: Glucometer 91 12/23/16 15:57: Glucometer 83 12/24/16 06:19: Glucometer 80 12/24/16 16:18: Glucometer 72 Assessment/Plan Assessment Rt Tibial plateua frx s/p fall managed with TTWB RLE and knee immobilizer Blisters rt thigh being treated with topical care DM on meds RA on meds Plan ContinuePT/OT/Skin care and pain management Monitor accucheks and adjust meds as needed F/U with DR Fulton prn Recheck blisters daily for improvement or for drainage or incresed area of involvment ARCHANA MAGAÑA MD December 24, 2016 21:20
[2016-12-25] MEDS: LEVOTHYROXINE 25 MCG (LEVOTHROID) TAB PO SCH (05:13)
[2016-12-25] MEDS: LEVOTHYROXINE 150 MCG (LEVOTHROID) TAB PO SCH (05:13)
[2016-12-25] MEDS: LACTOBACILLUS Acidoph/Bulgar (LACTINEX/FLORANEX) TAB PO SCH ×3 (06:03→16:55)
[2016-12-25] MEDS: PANTOPRAZOLE 40 MG (PROTONIX) TAB PO SCH (06:03)
[2016-12-25] MEDS: HYDROcodone/APAP 5 MG/325 MG (LORTAB) TAB PO PRN ×2 (06:03→20:19)
[2016-12-25 06:58] VITALS: BP 148/84
[2016-12-25] MEDS: FOLIC ACID 1 MG TAB PO SCH (09:16)
[2016-12-25] MEDS: LIPASE/AMYLASE/PROTEASE (PANCRELIPASE) 5,000 UNITS CAP PO SCH ×3 (09:16→17:22)
[2016-12-25] MEDS: DIPHENOXYLATE/ATROPINE 2.5MG/0.025MG (LOMOTIL) TAB PO SCH ×2 (09:16→20:18)
[2016-12-25] MEDS: FERROUS SULF 325 MG (IRON) TAB PO SCH ×3 (09:16→17:22)
[2016-12-25] MEDS: THIAMINE 100 MG (VITAMIN B-1) TAB PO SCH (09:16)
[2016-12-25] MEDS: ASPIRIN 81 MG CHEW (CHILDREN'S ASA) PO SCH (09:17)
[2016-12-25] MEDS: BENEFIBER (FROM DIETARY) DOCUMENTATION PURPOSE ONLY PO SCH ×3 (09:17→20:19)
[2016-12-25] MEDS: HYDROXYCHLOROQUINE 200 MG (PLAQUENIL) TAB PO SCH ×2 (09:17→20:18)
[2016-12-25] MEDS: DRONABINOL 2.5 MG (MARINOL) CAP PO SCH (09:17)
[2016-12-25] MEDS: TRIAMCINOLONE 0.1% CR (KENALOG) 15 GM TUBE TOP SCH ×3 (09:18→20:19)
[2016-12-25] MEDS: MULTIVIT W/MINERALS TAB (THERAGRAN M) PO SCH (09:37)
[2016-12-25 18:39] VITALS: BP 121/81
[2016-12-25] MEDS: MIRTAZAPINE 15 MG (REMERON) TAB PO SCH (20:18)
[2016-12-25] MEDS: SERTRALINE 50 MG (ZOLOFT) TABLET PO SCH (20:18)
[2016-12-26] MEDS: MULTIVIT W/MINERALS TAB (THERAGRAN M) PO SCH (06:12)
[2016-12-26] MEDS: LIPASE/AMYLASE/PROTEASE (PANCRELIPASE) 5,000 UNITS CAP PO SCH ×3 (06:12→16:39)
[2016-12-26] MEDS: THIAMINE 100 MG (VITAMIN B-1) TAB PO SCH (06:12)
[2016-12-26] MEDS: FOLIC ACID 1 MG TAB PO SCH (06:12)
[2016-12-26] MEDS: LEVOTHYROXINE 25 MCG (LEVOTHROID) TAB PO SCH (06:12)
[2016-12-26] MEDS: FERROUS SULF 325 MG (IRON) TAB PO SCH ×3 (06:12→16:39)
[2016-12-26] MEDS: PANTOPRAZOLE 40 MG (PROTONIX) TAB PO SCH (06:12)
[2016-12-26] MEDS: LACTOBACILLUS Acidoph/Bulgar (LACTINEX/FLORANEX) TAB PO SCH ×3 (06:12→16:39)
[2016-12-26] MEDS: LEVOTHYROXINE 150 MCG (LEVOTHROID) TAB PO SCH (06:12)
[2016-12-26 06:27] VITALS: BP 133/87
[2016-12-26] MEDS: ASPIRIN 81 MG CHEW (CHILDREN'S ASA) PO SCH (08:16)
[2016-12-26] MEDS: HYDROXYCHLOROQUINE 200 MG (PLAQUENIL) TAB PO SCH ×2 (08:16→20:33)
[2016-12-26] MEDS: DIPHENOXYLATE/ATROPINE 2.5MG/0.025MG (LOMOTIL) TAB PO SCH ×2 (08:16→20:34)
[2016-12-26] MEDS: DRONABINOL 2.5 MG (MARINOL) CAP PO SCH (08:16)
[2016-12-26] MEDS: TRIAMCINOLONE 0.1% CR (KENALOG) 15 GM TUBE TOP SCH ×3 (08:17→20:14)
[2016-12-26] MEDS: BENEFIBER (FROM DIETARY) DOCUMENTATION PURPOSE ONLY PO SCH ×3 (08:17→20:33)
--- NOTE | 2016-12-26 08:42 | Progress Note (SOAP) ---
Subjective Subjective/Events-last exam hepatitis C. Shingles. Speech patient doing much better Objective Exam Vital Signs Date Time Temp Pulse Resp B/P (MAP) Pulse Ox O2 Delivery O2 Flow Rate FiO2 12/26/16 06:27 98.4 82 16 133/87 97 12/25/16 18:39 97.9 78 14 121/81 99 I & O 12/26/16 07:00 Intake Total 1480 ml Output Total 850 ml Balance 630 ml Capillary Refill : General Appearance: No Apparent Distress, Thin HEENT: Normal ENT Inspection Neck: Normal Inspection Respiratory: No Accessory Muscle Use, No Respiratory Distress Cardiovascular: Regular Rate, Rhythm, No Murmur Results Lab Laboratory Tests 12/25/16 16:02: Glucometer 108 12/26/16 06:33: Glucometer 136H Assessment/Plan Assessment/Plan Assess & Plan/Chief Complaint Confusion. Hepatitis C. Right leg pain. . 12/19/16. Confusion. Hepatitis C. Right leg pain. Patient to have psych evaluate today. . 12/20/16. Hepatitis C. Debility. Less confusion today. Patient refused psych evaluation. . 12/21/16. Confusion is better. blisters his right leg and back has his diaper on. Patient weak. . 12/22/16.. Patient still has confusion. debility. Patient working progress. . 12/23/16. Confusion. Patient states he's in [facility] area Patient did not sleep good last night. Rash in groin improving. . 12/26/16. Confusion. Hepatitis C. Shingles Clinical Quality Measures DVT/VTE Risk/Contraindication: Risk Factor Score Per Nursin RFS Level Per Nursing on Admit: 4+=Very High KUSHAL CRAVEN DO December 26, 2016 08:42
[2016-12-26] MEDS: HYDROcodone/APAP 5 MG/325 MG (LORTAB) TAB PO PRN ×2 (09:38→21:12)
--- NOTE | 2016-12-26 09:57 | Physical Therapy Daily Note ---
PT Daily Note-Current Subjective Pt. c/o pain at 9/10 right leg/posterior knee. Pt. declines up for attempts at walking secondary to pain. Nursing advised of pts. pain c/o and gave meds. Pain Numeric Pain Scale: 9 Location: Right Location Body Site: Knee Pain Description: Stabbing Appearance whincing, unable to concentrate, furrowed brow Mental Status Patient Orientation: Confused Attachments: Other-See Comments (splint RLE) Transfers Functional [place] Measure 0=Not Assessed/NA 4=Minimal Assistance 1=Total Assistance 5=Supervision or Setup 2=Maximal Assistance 6=Modified [place] 3=Moderate Assistance 7=Complete IndependenceIRFPAI Quality Coding Scale 6 Independent with activity with or without an assistive device 5 Patient requires set up or clean up by helper. Patient completes activity by themselves 4 Supervision or touching assist (CGA). [place] provide cues , steadying assist 3 The helper provides less than half the effort to complete the activity 2 The helper provides more than half the effort to complete the activity 1 Dependent. The helper does all the effort to complete an activity 7 Patient refused to complete or attempt activity 9 The patient did not perform the activity before the current illness or injury 88 Not attempted due to Medical conditions or safety concerns Transfers (B, C, W/C) (FIM): 5 Scootin Rollin Supine to/from Sit: 6 Sit to/from Stand: 5 Weight Bearing Weight Bearing Restriction: Non Weight Bearing Location Restriction: R LE Gait Training pt. with pain at 9/10 this date unable to attempt gait. Exercises Supine Ex: Ankle pumps, Quad Set, Rolling, Glut sets, Heel Slides, Short Arc Quads, Scooting (scooted self up in bed with bed flat using rails and LLE to push), Straight leg raise, Hip abd/add Supine Reps: 15 Treatments Pt. given pain meds per nursing and positioned with head down and RLE elevated and warm blanket which pt. states "really helped" his pain Assessment Current Status: Fair Progress unable to participate in gait secondary to R LE posterior pain PT Short Term Goals Short Term Goals Time Frame: December 22, 2016 Transfers (B,C,W/C) (FIM): 4 Gait (FIM): 1 Gait Distance Comment: 20' Gait Level of Assist: 4 Gait Assistive Device: FWW Wheelchair Distance: 100' PT [facility] Goals Patient Safety Attendant Goals PT [facility] Goals Time Frame: January 05, 2017 Transfers (B,C,W/C) (FIM): 5 Sit to Lying (QC): 4 Lying-Sitting on Side/Bed(QC): 4 Sit to Stand (QC): 4 Rollin Roll Left to Right (QC): 4 Chair/Uar-iz-Kgvla Xfer(QC): 4 Car Transfer (QC): 3 Gait (FIM): 1 Distance: 30' Walk 10 feet (QC): 4 Walk 10ft-Uneven Surface(QC): 88 Walk 50ft with 2 Turns (QC): 88 Walk 150 ft (QC): 88 Gait Level of Assist: 4 (CGA) Gait Assistive Device: FWW Stairs (FIM): 1 # of Steps: 1 1 Step (curb) (QC): 4 4 Steps (QC): 88 12 Steps (QC): 88 Stairs Level Of Assist: 4 Picking up an Object (QC): 88 PT Plan Treatment/Plan Treatment Plan: Continue Plan of Care Treatment Plan: Bed Mobility, Education, Functional Activity Rima, Functional Strength, Group Therapy, Gait, Safety, Therapeutic Exercise, Transfers Treatment Duration: January 05, 2017 Visits Per Week: 10-11 Minutes/Day (M-F): 60-90 Minutes/Day (Sat/Chaves): 15-30 Safety Risks/Education Patient Education: Transfer Techniques, Issued Written HEP Teaching Recipient: Patient Teaching Methods: Demonstration, Discussion Response to Teaching: Verbalize Understanding, Return Demonstration, Reinforcement Needed Time/GCodes Time In: 900 Time Out: 1000 Total Billed Treatment Time: 60 Total Billed Treatment 1,EX40,FA20 G Codes Necessary: MARIS Camar[place] TECHNICAL RESEARCH SCIENTIST December 26, 2016 09:56
--- NOTE | 2016-12-26 11:24 | Speech Therapy Daily Note ---
Speech Daily Progress Note Subjective The patient was seated upright in bed upon entrance. The patient greeted the clinician appropriately and was agreeable to participation in the cognitive treatment session on this date. To note: The patient demonstrated increased alertness and participation throughout today's session. Objective JUAN MIGUEL tasks were continued on this date with the below results: - Counting Money: The patient was asked to calculate accurate change amounts and addition of bills. The patient demonstrated 80% accuracy with mild clinician verbal cueing. - Addressing an Envelope: The patient was asked to address an envelope with a provided address and his return address. The patient demonstrated 100% accuracy , independently. - Writing a Check and Balancing a Checkbook: As the patient reported he currently continues to write checks, he was asked to complete a check and checkbook registrar. The patient demonstrated 50% accuracy with this task, independently. The patient's reduced accuracy was secondary to erroneous dates and addition. The patient was provided with pencil and paper for check addition. Orientation: The patient was oriented to month, day of week, and year, independently. Assessment Assessment Current Status: Good Progress Treatment Plan Continue Plan of Care Communication Comprehension: 4 Expression: 4 Social Cognition Social Interaction: 4 Problem Solvin Memory: 3 Speech Short Term Goals Short Term Goals Short Term Goals 1. The patient will participate in a full evaluation of cognitive function and receptive/expressive language. MET 12/16/2016 2. The patient will demonstrate 80% accuracy with orientation information with use of the provided external aid. 3. The patient will display 80% accuracy with simple, one-step commands ( provided verbally) with mild clinician verbal cueing. 4. The patient will demonstrate 80% accuracy with structured word-finding tasks. Time Frame-STG: One Week Speech Retirement Goals Retirement Goals 1. The patient will demonstrate increased cognitive skills for improved safety and function with ADL's in the least restrictive setting. Time Frame: Three Weeks Comprehension: 4 Expression: 4 Social Interaction: 4 Problem Solvin Memory: 3 Speech-Plan Treatment Plan Speech Therapy Treatment Plan: Continue Plan of Care Continue skilled speech pathology to target functional problem solving. Treatment Duration: January 05, 2017 # of days/week Four to five. Visits Per Week: Four to Five Minutes/Day (M-F): 30 Rehab Potential: Fair Safety Risks/Education Teaching Recipient: Patient Teaching Methods: Discussion Response to Teaching: Verbalize Understanding Education Topics Provided: Progress, Orientation Strategies Time Speech Therapy Time In: 08:15 Speech Therapy Time Out: 08:45 Total Billed Time: 30 Billed Treatment Time 1, KELSEY KATE December 26, 2016 11:24
--- NOTE | 2016-12-26 14:13 | Physical Therapy Daily Note ---
PT Daily Note-Current Subjective Pt. c/o he is still hurting but will try to move more this afternoon. After attempting TRF out of bed and stance pt. aborted and headed back to bed. States pain escalated from 7/10 to 8/10 Pain Numeric Pain Scale: 7 Location: Right Location Body Site: Knee Pain Description: Ache Mental Status Patient Orientation: Confused Attachments: Other-See Comments (splint ) Transfers Functional [place] Measure 0=Not Assessed/NA 4=Minimal Assistance 1=Total Assistance 5=Supervision or Setup 2=Maximal Assistance 6=Modified [place] 3=Moderate Assistance 7=Complete IndependenceIRFPAI Quality Coding Scale 6 Independent with activity with or without an assistive device 5 Patient requires set up or clean up by helper. Patient completes activity by themselves 4 Supervision or touching assist (CGA). [place] provide cues , steadying assist 3 The helper provides less than half the effort to complete the activity 2 The helper provides more than half the effort to complete the activity 1 Dependent. The helper does all the effort to complete an activity 7 Patient refused to complete or attempt activity 9 The patient did not perform the activity before the current illness or injury 88 Not attempted due to Medical conditions or safety concerns scooting indep, rolling indep, EOB indep Gait Training Gait Assistive Device: FWW 4-5 steps not maintaining TTWB Exercises Supine Ex: Ankle pumps, Quad Set, Rolling, Glut sets, Heel Slides, Short Arc Quads, Scooting, Straight leg raise, Hip abd/add Supine Reps: 15 Assessment Current Status: Fair Progress pain limits Rx PT Short Term Goals Short Term Goals Time Frame: December 22, 2016 Transfers (B,C,W/C) (FIM): 4 Gait (FIM): 1 Gait Distance Comment: 20' Gait Level of Assist: 4 Gait Assistive Device: FWW Wheelchair Distance: 100' PT [facility] Goals Purchasing Director Goals PT [facility] Goals Time Frame: January 05, 2017 Transfers (B,C,W/C) (FIM): 5 Sit to Lying (QC): 4 Lying-Sitting on Side/Bed(QC): 4 Sit to Stand (QC): 4 Rollin Roll Left to Right (QC): 4 Chair/Rhv-va-Kmkjw Xfer(QC): 4 Car Transfer (QC): 3 Gait (FIM): 1 Distance: 30' Walk 10 feet (QC): 4 Walk 10ft-Uneven Surface(QC): 88 Walk 50ft with 2 Turns (QC): 88 Walk 150 ft (QC): 88 Gait Level of Assist: 4 (CGA) Gait Assistive Device: FWW Stairs (FIM): 1 # of Steps: 1 1 Step (curb) (QC): 4 4 Steps (QC): 88 12 Steps (QC): 88 Stairs Level Of Assist: 4 Picking up an Object (QC): 88 PT Plan Treatment/Plan Treatment Plan: Continue Plan of Care Treatment Plan: Bed Mobility, Education, Functional Activity Rima, Functional Strength, Group Therapy, Gait, Safety, Therapeutic Exercise, Transfers Treatment Duration: January 05, 2017 Visits Per Week: 10-11 Minutes/Day (M-F): 60-90 Minutes/Day (Sat/Chaves): 15-30 Safety Risks/Education Patient Education: Transfer Techniques Time/GCodes Time In: 1335 Time Out: 1355 Total Billed Treatment Time: 20 Total Billed Treatment 1,EX20m G Codes Necessary: MARIS Camar[place] LEAD PASTOR December 26, 2016 14:13
--- NOTE | 2016-12-26 14:21 | Occupational Ther Daily Note ---
OT Current Status-Daily Note Subjective Pt seen in room, up in bed, agreeable to OT. Pain reported 6/10 in R knee after LB dressing but said his blisters don't hurt anymore. Appearance Alert, cooperative. Oriented to location. Blisters on R thigh appear to be drying up. Mental Status/Objective Functional [place] Measure 0=Not Assessed/NA 4=Minimal Assistance 1=Total Assistance 5=Supervision or Setup 2=Maximal Assistance 6=Modified [place] 3=Moderate Assistance 7=Complete [place] ADL-Treatment Pt reported he took a shower yesterday and did well (did not have to end shower due to fatigue). During ADLs, he took several lying down breaks and also stretched his head and shoulders back periodically. He was able to get himself back up to sitting without help except for min assist with last transfer. Functional [place] Measure 0=Not Assessed/NA 4=Minimal Assistance 1=Total Assistance 5=Supervision or Setup 2=Maximal Assistance 6=Modified [place] 3=Moderate Assistance 7=Complete IndependenceIRFPAI Quality Coding Scale 6 Independent with activity with or without an assistive device 5 Patient requires set up or clean up by helper. Patient completes activity by themselves 4 Supervision or touching assist (CGA). [place] provide cues , steadying assist 3 The helper provides less than half the effort to complete the activity 2 The helper provides more than half the effort to complete the activity 1 Dependent. The helper does all the effort to complete an activity 7 Patient refused to complete or attempt activity 9 The patient did not perform the activity before the current illness or injury 88 Not attempted due to Medical conditions or safety concerns Eating (FIM): 5 (Pt drank a can of Ensure and ate a cookie but does not initiate eating on his own. used Fabrizio cup for its lid. ) Grooming (FIM): 6 (Brushed teeth at sink, w/c level, no assistance except skilled cue to lock brakes of w/c) Upper Body (FIM): 4 (Doffed and donned t-shirt with setup. It took several trials to get clean shirt over his head and some help to bunch shirt up for grasping but he was able to do it. ) Lower Body Dressing (QC): 5 (Able to get pants off and clean underwear and pants on with setup, SBA when standing, FWW. Pt educ modified technique for pants. He was able to take brace off but unable to put it back on. Able to lean forward to put slipper socks on. ) Toileting (FIM): 5 (Stood SBA, FWW to use urinal but was not able to empty it. ) Transfers (B, C, W/C) (FIM): 4 Other Treatment Pt stood up from bed with SBA, FWW and walked CGA for safety FWW about 10 feet to /. Transferred safely into w/. Skilled cues needed for locking brakes in bathroom and in gym area. Pt propelled himself to gym in / and did 10 minutes bilat UE ex with arm bike, taking a break at 2 minutes and 5 minutes ( he previously was able to tolerate no more than 2 minutes). At times his head hung down but he could actively pull it back up and stretch. Pt returned to room , walked back to recliner from / with CGA, FWW (about 10 feet). Pt left up in recliner, legs elevated, all needs met. Education OT Patient Education: Modified ADL techniques, Progress toward Goal/Update tx plan, Purpose of tx/functional activities, Safety issues, Transfer techniques Teaching Recipient: Patient Teaching Methods: Demonstration, Discussion Response to Teaching: Verbalize Understanding, Return Demonstration, Reinforcement Needed OT Short Term Goals Short Term Goals Time Frame: December 29, 2016 Upper Body Dressing(FIM): 5 Lower Body Dressing(FIM): 4 Toileting(FIM): 4 Transfers (B,C,W/C) (FIM): 4 Toilet/Commode Transfer(FIM): 4 Additional Short Term Goals: 2-Verbalize Understanding, 3-ImproveStrength/Rima 1=Demonstrate adherence to instructed precautions during ADL tasks. 2=Patient will verbalize/demonstrate understanding of assistive devices/ modifications for ADL. 3=Patient will improve strength/tolerance for activity to enable patient to perform ADL's. OT Director Of Restaurant Goals Director Of Restaurant Goals Time Frame: January 05, 2017 Eating (FIM): 6 Eating (QC): 6 Groomin Oral Hygiene (QC): 6 Bathing(FIM): 5 Shower/Bathe Self (QC): 5 Upper Body Dressing(FIM): 6 Upper Body Dressing (QC): 6 Lower Body Dressing(FIM): 6 Lower Body Dressing (QC): 6 On/Off Footwear (QC): 6 Toileting(FIM): 6 Toileting Hygiene (QC): 6 Toilet/Commode Transfer(FIM): 6 Toilet/Commode Transfer (QC): 6 Shower Transfer(FIM): 5 Comprehension(FIM): 4 Expression (FIM): 4 Social Interaction(FIM): 4 Problem Solving(FIM): 3 Memory(FIM): 3 Additional Goals: 2-Verbalize Understanding, 3-ImproveStrength/Rima 1=Demonstrate adherence to instructed precautions during ADL tasks. 2=Patient will verbalize/demonstrate understanding of assistive devices/ modifications for ADL. 3=Patient will improve strength/tolerance for activity to enable patient to perform ADL's. OT Education/Plan Problem List/Assessment Pt would benefit from skilled OT to increase his independence in basic self care to allow him to safely return home to live with family. Discharge Recommendations Plan/Recommendations: Continue POC Treatment Plan/Plan of Care Patient would benefit from OT for education, treatment and training to promote independence in ADL's, mobility, safety and/or upper extremity function for ADL' s. Plan of Care: ADL Retraining, Functional Mobility, Group Exercise/Act as Ind ( education, exercise, socialization, activity tolerance, memory, problem solving) , UE Funct Exercise/Act, UE Neuromus Re-Ed/Coord Treatment Duration: January 05, 2017 Visits Per Week: 10-11 Minutes/Day (M-F): 75-90 Minutes/Day (Sat/Chaves): PRN Agreement: Yes Rehab Potential: Fair Time/GCodes Start Time: 10:15 Stop Time: 11:30 Total Time Billed (hr/min): 75 Billed Treatment Time visit, 40 minutes ADL, 35 minutes exercise CHRYSTAL FREEMAN OT December 26, 2016 14:21
[2016-12-26 17:48] VITALS: BP 126/80
--- NOTE | 2016-12-26 19:43 | PM & R (SOAP) Progress Note ---
Subjective Subjective/Events-last exam Patient was seen in his room this evening Patient min assist for transfers Left knee pain limits progress -adjusted doasge on pain med Blisters much improved with Dr gould rx Blisters deflated no fluid appears present. Discussed case with RN [id number]<5 and Accuchecks fairly normal-Will d/c accuchecks. Review of Systems Musculoskeletal: leg pain Objective Exam Last Set of Vital Signs Vital Signs Date Time Temp Pulse Resp B/P (MAP) Pulse Ox O2 Delivery O2 Flow Rate FiO2 12/26/16 17:48 98.0 88 16 126/80 98 12/22/16 05:00 Room Air Capillary Refill : I&O Intake and Output 12/25/16 23:59 Intake Total 1600 ml Output Total 975 ml Balance 625 ml Intake Oral 1600 ml Output Urine Total 975 ml General: Alert, Cooperative, No Acute Distress, Other (Speech therapy reports cognitively improving) HEENT: Atraumatic, PERRLA, EOMI, Mucous Memb Moist/[place] Neck: Supple, No JVD Lungs: Clear to Auscultation Heart: Regular Rate Abdomen: Normal Bowel Sounds, Soft, No Tenderness Extremities: Other (Knee immobilizer rt leg) Skin: Other (blisters rt anterior thigh improving) Neuro: Other (Generalized weakness) Results Lab Laboratory Tests 12/24/16 06:19: Glucometer 80 12/24/16 16:18: Glucometer 72 12/25/16 06:01: Glucometer 95 12/25/16 16:02: Glucometer 108 12/26/16 06:33: Glucometer 136H 12/26/16 09:31: Hemoglobin A1c 4.3L Assessment/Plan Assessment Rt Tibial plateua frx s/p fall managed with TTWB RLE and knee immobilizer with breakthough pain Blisters rt thigh being treated with topical care-much improved RA on meds No evidence of DM with normal [id number] d/c accuchecks Plan ContinuePT/OT/Skin care and pain management F/U with DR Fulton prn DX contact dermatittis Recheck blisters daily for improvement or for drainage or incresed area of involvment-much improved Accuchecks d/cd Pain managemnet for breakthrough pain-See orders. ARCHANA MAGAÑA MD December 26, 2016 19:43
[2016-12-26] MEDS: MIRTAZAPINE 15 MG (REMERON) TAB PO SCH (20:33)
[2016-12-26] MEDS: SERTRALINE 50 MG (ZOLOFT) TABLET PO SCH (20:33)
[2016-12-27 05:10] VITALS: BP 122/73
[2016-12-27] MEDS: PANTOPRAZOLE 40 MG (PROTONIX) TAB PO SCH (06:17)
[2016-12-27] MEDS: FERROUS SULF 325 MG (IRON) TAB PO SCH ×3 (06:18→16:45)
[2016-12-27] MEDS: LACTOBACILLUS Acidoph/Bulgar (LACTINEX/FLORANEX) TAB PO SCH ×3 (06:18→16:45)
[2016-12-27] MEDS: LEVOTHYROXINE 150 MCG (LEVOTHROID) TAB PO SCH (06:18)
[2016-12-27] MEDS: LEVOTHYROXINE 25 MCG (LEVOTHROID) TAB PO SCH (06:18)
[2016-12-27] MEDS: MULTIVIT W/MINERALS TAB (THERAGRAN M) PO SCH (06:18)
[2016-12-27] MEDS: THIAMINE 100 MG (VITAMIN B-1) TAB PO SCH (06:18)
[2016-12-27] MEDS: FOLIC ACID 1 MG TAB PO SCH (06:18)
[2016-12-27] MEDS: HYDROcodone/APAP 5 MG/325 MG (LORTAB) TAB PO PRN ×3 (06:19→20:55)
[2016-12-27] MEDS: LIPASE/AMYLASE/PROTEASE (PANCRELIPASE) 5,000 UNITS CAP PO SCH ×3 (06:24→16:46)
[2016-12-27] MEDS: ASPIRIN 81 MG CHEW (CHILDREN'S ASA) PO SCH (08:22)
[2016-12-27] MEDS: DRONABINOL 2.5 MG (MARINOL) CAP PO SCH (08:22)
[2016-12-27] MEDS: HYDROXYCHLOROQUINE 200 MG (PLAQUENIL) TAB PO SCH ×2 (08:22→20:55)
--- NOTE | 2016-12-27 08:42 | Progress Note (SOAP) ---
Subjective Subjective/Events-last exam Hepatitis C Confusion much better. Dermatitis is drying up Objective Exam Vital Signs Date Time Temp Pulse Resp B/P (MAP) Pulse Ox O2 Delivery O2 Flow Rate FiO2 12/27/16 05:10 97.5 76 16 122/73 97 12/26/16 17:48 98.0 88 16 126/80 98 I & O 12/27/16 07:00 Intake Total 1600 ml Output Total 1900 ml Balance -300 ml Capillary Refill : General Appearance: No Apparent Distress, Thin HEENT: Normal ENT Inspection Neck: Normal Inspection Respiratory: Chest Non Tender, Lungs Clear, Normal Breath Sounds, No Accessory Muscle Use, No Respiratory Distress Results Lab Laboratory Tests 12/26/16 09:31: Hemoglobin A1c 4.3L Assessment/Plan Assessment/Plan Assess & Plan/Chief Complaint Confusion. Hepatitis C. Right leg pain. . 12/19/16. Confusion. Hepatitis C. Right leg pain. Patient to have psych evaluate today. . 12/20/16. Hepatitis C. Debility. Less confusion today. Patient refused psych evaluation. . 12/21/16. Confusion is better. blisters his right leg and back has his diaper on. Patient weak. . 12/22/16.. Patient still has confusion. debility. Patient working progress. . 12/23/16. Confusion. Patient states he's in [facility] area Patient did not sleep good last night. Rash in groin improving. . 12/26/16. Confusion. Hepatitis C. Shingles. . 12/27/16. Hepatitis C. Confusion is better. Rashes doing better. Patient in the right direction Clinical Quality Measures DVT/VTE Risk/Contraindication: Risk Factor Score Per Nursin RFS Level Per Nursing on Admit: 4+=Very High KUSHAL CRAVEN DO December 27, 2016 08:42
[2016-12-27] MEDS: TRIAMCINOLONE 0.1% CR (KENALOG) 15 GM TUBE TOP SCH ×3 (08:55→20:55)
[2016-12-27] MEDS ORDERED: MILK OF MAGNESIA 400 MG/5 ML 30 ML UDC PO PRN (09:00)
[2016-12-27] MEDS ORDERED: BISACODYL 10 MG SUPP (DULCOLAX) PR PRN (09:00)
--- NOTE | 2016-12-27 09:03 | PM & R (SOAP) Progress Note ---
Subjective Subjective/Events-last exam Patient was seen in his room this AM Blisters rt thigh resolving Discussed case with RN and Kirstin Patient without bowel movement for several days Lomotil and benefiber d/cd Senokiot s as well as MOM and Dulcolax ordered Patient SBA for transfers TTWB RLE Pain meds adjusted for breakthrough pain when standing Review of Systems Gastrointestinal: Constipation Musculoskeletal: leg pain Objective Exam Last Set of Vital Signs Vital Signs Date Time Temp Pulse Resp B/P (MAP) Pulse Ox O2 Delivery O2 Flow Rate FiO2 12/27/16 05:10 97.5 76 16 122/73 97 12/22/16 05:00 Room Air Capillary Refill : I&O Intake and Output 12/27/16 00:00 Intake Total 1680 ml Output Total 850 ml Balance 830 ml Intake Oral 1680 ml Output Urine Total 850 ml General: Alert, Cooperative, No Acute Distress, Other (Speech therapy reports cognitively improving) HEENT: Atraumatic, PERRLA, EOMI, Mucous Memb Moist/[place] Neck: Supple, No JVD Lungs: Clear to Auscultation Heart: Regular Rate Abdomen: Normal Bowel Sounds, Soft, No Tenderness Extremities: Other (Knee immobilizer rt leg) Skin: Other (blisters rt anterior thigh improving) Neuro: Other (Generalized weakness) Results Lab Laboratory Tests 12/24/16 16:18: Glucometer 72 12/25/16 06:01: Glucometer 95 12/25/16 16:02: Glucometer 108 12/26/16 06:33: Glucometer 136H 12/26/16 09:31: Hemoglobin A1c 4.3L Assessment/Plan Assessment Rt Tibial plateua frx s/p fall managed with TTWB RLE and knee immobilizer with breakthough pain Contact dermatitis with Blisters rt thigh being treated with topical care-much improved RA on meds No evidence of DM with normal [id number] d/c accuchecks Constipation meds adjusted Plan ContinuePT/OT/Skin care and pain management F/U with DR Fulton prn DX contact dermatittis Recheck blisters daily for improvement or for drainage or incresed area of involvment-much improved Accuchecks d/cd Pain managemnet for breakthrough pain-See orders. Bowel meds adjusted Team Conference tomorrow 12/28/16 ARCHANA MAGAÑA MD December 27, 2016 09:03
[2016-12-27] MEDS: SENNA W/DOCUSATE (SENOKOT S) TABLET PO SCH ×2 (09:59→21:01)
--- NOTE | 2016-12-27 10:45 | Speech Therapy Daily Note ---
Speech Daily Progress Note Subjective The patient was positioned upright in bed upon entrance. The patient greeted the clinician appropriately and was agreeable to participation in the cognitive treatment session on this date. Objective JUAN MIGUEL (functional tasks) were continued on this date with the below results: - Understanding Medicine Labels: The patient demonstrated 100% accuracy with understanding, reading, and following medicine labels, independently. - Using a Calendar: The patient demonstrated 100% accuracy with reading and recording information on a calendar, independently. - Reading Instructions: The patient demonstrated 100% accuracy with reading instructions, independently. - Recalling a Phone Message: The patient demonstrated 100% accuracy with recalling important information from a phone message, independently. Orientation: The patient was oriented to month, day of week, year, and location (independently). Assessment Assessment Current Status: Excellent Progress Treatment Plan Continue Plan of Care Communication Comprehension: 4 Expression: 4 Social Cognition Social Interaction: 4 Problem Solvin Memory: 4 Speech Short Term Goals Short Term Goals Short Term Goals 1. The patient will participate in a full evaluation of cognitive function and receptive/expressive language. MET 12/16/2016 2. The patient will demonstrate 80% accuracy with orientation information with use of the provided external aid. MET 12/27/2016 3. The patient will display 80% accuracy with simple, one-step commands ( provided verbally) with mild clinician verbal cueing. MET 12/27/2016 4. The patient will demonstrate 80% accuracy with structured word-finding tasks. Time Frame-STG: One Week Speech Custodial Goals Sand Filler Goals 1. The patient will demonstrate increased cognitive skills for improved safety and function with ADL's in the least restrictive setting. Time Frame: Three Weeks Comprehension: 4 Expression: 4 Social Interaction: 4 Problem Solvin Memory: 3 Speech-Plan Treatment Plan Speech Therapy Treatment Plan: Continue Plan of Care Continue skilled speech pathology to target functional problem solving and word- finding. Treatment Duration: January 05, 2017 # of days/week Four to Five. Visits Per Week: Four to Five Minutes/Day (M-F): 30 Rehab Potential: Fair Safety Risks/Education Teaching Recipient: Patient Teaching Methods: Demonstration, Discussion Response to Teaching: Verbalize Understanding, Return Demonstration Education Topics Provided: Orientation Strategies, Progress Time Speech Therapy Time In: 08:15 Speech Therapy Time Out: 08:45 Total Billed Time: 30 Billed Treatment Time 1MARYCHUY ELIZABETH ST December 27, 2016 10:45
--- NOTE | 2016-12-27 11:30 | Occupational Ther Daily Note ---
OT Current Status-Daily Note Subjective Pt seen in room, up in bed, agreeable to OT. Pain in R hip to knee 04/23 but not described. Blisters do not hurt today and are drying. Appearance Alert, cooperative Mental Status/Objective Functional [place] Measure 0=Not Assessed/NA 4=Minimal Assistance 1=Total Assistance 5=Supervision or Setup 2=Maximal Assistance 6=Modified [place] 3=Moderate Assistance 7=Complete [place] ADL-Treatment All ADLs took longer than usual. He required frequent recovery periods, either with eyes closed, with leaning back and resting head against chair or wall, or supine in bed. Functional [place] Measure 0=Not Assessed/NA 4=Minimal Assistance 1=Total Assistance 5=Supervision or Setup 2=Maximal Assistance 6=Modified [place] 3=Moderate Assistance 7=Complete IndependenceIRFPAI Quality Coding Scale 6 Independent with activity with or without an assistive device 5 Patient requires set up or clean up by helper. Patient completes activity by themselves 4 Supervision or touching assist (CGA). [place] provide cues , steadying assist 3 The helper provides less than half the effort to complete the activity 2 The helper provides more than half the effort to complete the activity 1 Dependent. The helper does all the effort to complete an activity 7 Patient refused to complete or attempt activity 9 The patient did not perform the activity before the current illness or injury 88 Not attempted due to Medical conditions or safety concerns Eating (FIM): 5 (Although he can feed himself, he needs cues or help to initiate eating (setup). He will take a drink or a bite of cookie if offered but rarely pours it himself. Using Fabrizio cup due to lid. ) Eating (QC): 5 (setup) Grooming (FIM): 6 (brushed teeth and hair at sink, w/c level. Washed face and hands in the shower. Has a courtney so does not shave. Locked w/c brakes without cues) Oral Hygiene (QC): 6 Bathing (FIM): 5 (Pt was able to wash and dry all part and wash his hair but he needed supervision for safety, especially when bending over to wash feet. Leaned to the side to wash bottom. Shower bench, grab bars, hand held shower. ) Shower/Bathe Self (QC): 4 (Supervision) Upper Body (FIM): 5 (Setup. Able to get t shirt off and clean one on. Able to get shirt over head without assistance. ) Upper Body Dressing (QC): 5 Lower Body Dressing (FIM): 4 (CGA when standing to get pants off, grab bar in shower. Setup for socks, supervision for other LB dressing. Able to get slipper socks off and clean ones on with setup. Able to get pants off over hips and clean ones on. Rolled side to side to pull pants up in bed, conserving energy. ) Lower Body Dressing (QC): 4 (CGA) On/Off Footwear (QC): 5 (setup) Toileting (FIM): 3 (Able to get pants up and down but needs help with wiping. BSC, FWW for standing) Toileting Hygiene (QC): 3 Transfers (B, C, W/C) (FIM): 4 (CGA w/c to bed, FWW. For safety) Toilet/Commode Transfer (FIM): 4 (CGA, BSC (pt description) from toileting [facility] nursing) Toilet Transfer (QC): 4 (CGA) Shower Transfer(FIM): 3 (Pt transferred on to shower chair with CGA, FWW but required mod assist to get off shower bench, due to fatigue. Shower bench, grab bars) Other Treatment Pt transferred CGA from w/c to recliner, FWW. In recliner, did 10 reps bilat UE exercise with yellow theraband (too fatigued to do 15 reps). he needed minimal cueing to do each exercise and was able to track reps himself. To help strengthen arms to help with transfers (he was noted to be able to support his body during stand to sit and lift R foot up off the floor to limit weight bearing). pt left up in recliner, chair alarm on, all needs met, breakfast ordered. Education OT Patient Education: Progress toward Goal/Update tx plan, Purpose of tx/ functional activities, Transfer techniques Teaching Recipient: Patient Teaching Methods: Discussion Response to Teaching: Verbalize Understanding OT Short Term Goals Short Term Goals Time Frame: December 29, 2016 Upper Body Dressing(FIM): 5 Lower Body Dressing(FIM): 4 Toileting(FIM): 4 Transfers (B,C,W/C) (FIM): 4 Toilet/Commode Transfer(FIM): 4 Additional Short Term Goals: 2-Verbalize Understanding, 3-ImproveStrength/Rima 1=Demonstrate adherence to instructed precautions during ADL tasks. 2=Patient will verbalize/demonstrate understanding of assistive devices/ modifications for ADL. 3=Patient will improve strength/tolerance for activity to enable patient to perform ADL's. OT Mcc Goals Emergency Technician Goals Time Frame: January 05, 2017 Eating (FIM): 6 Eating (QC): 6 Groomin Oral Hygiene (QC): 6 Bathing(FIM): 5 Shower/Bathe Self (QC): 5 Upper Body Dressing(FIM): 6 Upper Body Dressing (QC): 6 Lower Body Dressing(FIM): 6 Lower Body Dressing (QC): 6 On/Off Footwear (QC): 6 Toileting(FIM): 6 Toileting Hygiene (QC): 6 Toilet/Commode Transfer(FIM): 6 Toilet/Commode Transfer (QC): 6 Shower Transfer(FIM): 5 Comprehension(FIM): 4 Expression (FIM): 4 Social Interaction(FIM): 4 Problem Solving(FIM): 3 Memory(FIM): 3 Additional Goals: 2-Verbalize Understanding, 3-ImproveStrength/Rima 1=Demonstrate adherence to instructed precautions during ADL tasks. 2=Patient will verbalize/demonstrate understanding of assistive devices/ modifications for ADL. 3=Patient will improve strength/tolerance for activity to enable patient to perform ADL's. OT Education/Plan Problem List/Assessment Pt would benefit from skilled OT to increase his independence in basic self care to allow him to safely return home to live with family. Discharge Recommendations Plan/Recommendations: Continue POC (may discharge closer to home tomorrow) Treatment Plan/Plan of Care Patient would benefit from OT for education, treatment and training to promote independence in ADL's, mobility, safety and/or upper extremity function for ADL' s. Plan of Care: ADL Retraining, Functional Mobility, Group Exercise/Act as Ind ( education, exercise, socialization, activity tolerance, memory, problem solving) , UE Funct Exercise/Act, UE Neuromus Re-Ed/Coord Treatment Duration: January 05, 2017 Visits Per Week: 10-11 Minutes/Day (M-F): 75-90 Minutes/Day (Sat/Chaves): PRN Agreement: Yes Rehab Potential: Fair Time/GCodes Start Time: 09:30 Stop Time: 10:45 Total Time Billed (hr/min): 75 Billed Treatment Time visit, ADL 65 minutes, exercise 10 minutes CHRYSTAL FREEMAN OT December 27, 2016 11:30
--- NOTE | 2016-12-27 12:08 | Physical Therapy Daily Note ---
PT Daily Note-Current Subjective Pt is sitting in recliner eating upon arrival. Pt agrees to PT although reports feeling very weak and fatigued more so today than previous few days. Mental Status Patient Orientation: Person, Place, Situation Attachments: Other-See Comments (Knee Brace) Transfers Functional [place] Measure 0=Not Assessed/NA 4=Minimal Assistance 1=Total Assistance 5=Supervision or Setup 2=Maximal Assistance 6=Modified [place] 3=Moderate Assistance 7=Complete IndependenceIRFPAI Quality Coding Scale 6 Independent with activity with or without an assistive device 5 Patient requires set up or clean up by helper. Patient completes activity by themselves 4 Supervision or touching assist (CGA). [place] provide cues , steadying assist 3 The helper provides less than half the effort to complete the activity 2 The helper provides more than half the effort to complete the activity 1 Dependent. The helper does all the effort to complete an activity 7 Patient refused to complete or attempt activity 9 The patient did not perform the activity before the current illness or injury 88 Not attempted due to Medical conditions or safety concerns Scootin Rollin Roll Left to Right (QC): 5 Supine to/from Sit: 4 Sit to/from Stand: 4 Sit to Lying (QC): 4 Sit to Stand (QC): 4 Chair/Sfb-pi-Aabbg Xfer(QC): 4 Bed to/from Chair: 4 Car Transfer (QC): 88 Pt could not complete simulated car transfer due to fatigue and weakness today. Weight Bearing Weight Bearing Restriction: Touch Toe Bearing Location Restriction: R LE Gait Training Does the Patient Walk?: Yes Gait (FIM): 2 Distance (FIM): 8=467-41 ft Distance: 50' Walk 10 feet (QC): 4 Walk 50 ft with 2 Turns(QC): 4 Walk 150 ft (QC): 88 Walking 10ft/uneven surface-QC: 88 Gait Level of Assist: 4 Gait Persons Needed: 1 Gait Assistive Device: FWW Pt doesn't maintain WB status consistently during transfers and ambulation. Pt fatigues easy and needs rest breaks. Wheelchair Training Does the Pt Use a Wheelchair?: Yes Wheelchair (FIM): 5 Wheelchair Distance: 3=150 ft Distance: 150' Wheelchair Level of Assist: 5 Wheel 50 ft with 2 turns (QC): 5 Wheel 150 ft (QC): 5 Type of Wheelchair: Manual Stair Training Stairs (FIM): 88 #of Steps: 0 1 Step (curb) (QC): 88 4 Steps (QC): 88 12 Steps (QC): 88 Pt fatigued easy and wasn't able to walk long enough to attempt even single step and was unsafe to attempt. Balance Picking up an Object (QC): 88 Special Test Comments Pt's balance wasn't strong enough to attempt. Treatments Pt transferred from recliner to standing using FWW at [facility]. Pt ambulated using FWW at [facility] with [facility] following. Pt fatigued and transferred to [facility] which pt propelled to Therapy Gym. After rest break, pt attempted walking to single stair to ascend but pt fatigued on the way and needed to sit in [facility]. Pt rested again and propelled [facility] back to room. Pt transferred back to bed in room to rest. facility maintenance worker was consulted regarding possible discharge tomorrow. Pt, Filter Tank Tender and PT talked regarding discharge tomorrow and how to get a hold of Sp to advise. Pt is left Supine in bed with all needs met at end of tx. Assessment Current Status: Fair Progress Pt ambulates farther than previous visits but fatigues easy. After initial ambulation, pt has difficulty regaining energy/strength to complete subsequent tasks. PT Short Term Goals Short Term Goals Time Frame: December 22, 2016 Transfers (B,C,W/C) (FIM): 4 Gait (FIM): 1 Gait Distance Comment: 20' Gait Level of Assist: 4 Gait Assistive Device: FWW Wheelchair Distance: 100' PT [facility] Goals [facility] Goals PT [facility] Goals Time Frame: January 05, 2017 Transfers (B,C,W/C) (FIM): 5 Sit to Lying (QC): 4 Lying-Sitting on Side/Bed(QC): 4 Sit to Stand (QC): 4 Rollin Roll Left to Right (QC): 4 Chair/Tce-ng-Ulpnp Xfer(QC): 4 Car Transfer (QC): 3 Gait (FIM): 1 Distance: 30' Walk 10 feet (QC): 4 Walk 10ft-Uneven Surface(QC): 88 Walk 50ft with 2 Turns (QC): 88 Walk 150 ft (QC): 88 Gait Level of Assist: 4 ([facility]) Gait Assistive Device: FWW Stairs (FIM): 1 # of Steps: 1 1 Step (curb) (QC): 4 4 Steps (QC): 88 12 Steps (QC): 88 Stairs Level Of Assist: 4 Picking up an Object (QC): 88 PT Plan Problem List Problem List: Activity Tolerance, Functional Strength, Safety, Balance, Gait, Transfer, Bed Mobility Treatment/Plan Treatment Plan: Continue Plan of Care Treatment Plan: Bed Mobility, Education, Functional Activity Rima, Functional Strength, Group Therapy, Gait, Safety, Therapeutic Exercise, Transfers Treatment Duration: January 05, 2017 Visits Per Week: 10-11 Minutes/Day (M-F): 60-90 Minutes/Day (Sat/Chaves): 15-30 Safety Risks/Education Patient Education: Gait Training, Transfer Techniques, Correct Positioning, W/ C Management, Safety Issues Teaching Recipient: Patient Teaching Methods: Discussion Response to Teaching: Verbalize Understanding Time/GCodes Time In: 1100 Time Out: 1145 Total Billed Treatment Time: 45 Total Billed Treatment visit, [facility] (15m), GT (15m) & FA (15m) CLAUDINE SCHROEDER PTA December 27, 2016 12:08
--- NOTE | 2016-12-27 15:02 | Therapy Team Discharge Summary ---
Therapy Discharge Summary Discharge Recommendations Date of Discharge Therapy D/C Recommendations: Home w/ Family Support, Nursing Home (TCU/NH) Speech-Language Pathology The patient was recently admitted to [facility] following a fall resulting in a tibia fracture. Upon admission, the patient demonstrated increased confusion and a moderate cognitive impairment in the areas of memory, problem solving, and attention. Skilled speech pathology intervention focused on functional tasks including memory strategies and safety problem solving. The patient demonstrated limited progression at the start of treatment, however, demonstrated great improvement in the past couple of days. The patient has met his speech pathology goals, however, due to fluctuating levels of confusion, the clinician does not deem the patient safe to return home alone. Continue speech pathology post discharge for monitoring of confusion. The patient will discharge from skilled speech therapy at this time. PT Intermediate Goals District Engineer Goals PT Intermediate Goals Time Frame: January 05, 2017 Transfers (B,C,W/C) (FIM): 5 Roll Left to Right (QC): 4 Sit to Lying (QC): 4 Lying-Sitting on Side/Bed(QC): 4 Sit to Stand (QC): 4 Chair/Rtx-zr-Dfcwa Xfer(QC): 4 Car Transfer (QC): 3 Gait (FIM): 1 Distance: 30' Walk 10 feet (QC): 4 Walk 10ft-Uneven Surface(QC): 88 Walk 50ft with 2 Turns (QC): 88 Walk 150 ft (QC): 88 Gait Level of Assist: 4 (CGA) Gait Assistive Device: FWW Stairs (FIM): 1 # of Steps: 1 1 Step (curb) (QC): 4 4 Steps (QC): 88 12 Steps (QC): 88 Stairs Level Of Assist: 4 Picking up an Object (QC): 88 OT Intermediate Goals District Engineer Goals Time Frame: January 05, 2017 Eating (FIM): 6 Eating (QC): 6 Oral Hygiene (QC): 6 Grooming(FIM): 6 Bathing(FIM): 5 Shower/Bathe Self (QC): 5 Upper Body Dressing(FIM): 6 Upper Body Dressing (QC): 6 Lower Body Dressing(FIM): 6 Lower Body Dressing (QC): 6 On/Off Footwear (QC): 6 Toileting(FIM): 6 Toileting Hygiene (QC): 6 Toilet/Commode Transfer(FIM): 6 Toilet/Commode Transfer (QC): 6 Shower Transfer(FIM): 5 Comprehension(FIM): 4 Expression (FIM): 4 Social Interaction(FIM): 4 Problem Solving(FIM): 3 Memory(FIM): 3 Additional Goals: 2-Verbalize Understanding, 3-ImproveStrength/Rima 1=Demonstrate adherence to instructed precautions during ADL tasks. 2=Patient will verbalize/demonstrate understanding of assistive devices/ modifications for ADL. 3=Patient will improve strength/tolerance for activity to enable patient to perform ADL's. Speech Intermediate Goals Intermediate Goals 1. The patient will demonstrate increased cognitive skills for improved safety and function with ADL's in the least restrictive setting. Time Frame: Three Weeks Comprehension: 4 Expression: 4 Social Interaction: 4 Problem Solvin Memory: 3 KELSEY WALSH December 27, 2016 15:02
--- NOTE | 2016-12-27 16:17 | Physical Therapy Daily Note ---
PT Daily Note-Current Subjective Pt laying Supine in bed upon arrival. Pt agreed to PT although reports feeling fatigued and sore this afternoon. Mental Status Patient Orientation: Person, Place, Situation Attachments: Other-See Comments (Knee Brace) Transfers Functional [place] Measure 0=Not Assessed/NA 4=Minimal Assistance 1=Total Assistance 5=Supervision or Setup 2=Maximal Assistance 6=Modified [place] 3=Moderate Assistance 7=Complete IndependenceIRFPAI Quality Coding Scale 6 Independent with activity with or without an assistive device 5 Patient requires set up or clean up by helper. Patient completes activity by themselves 4 Supervision or touching assist (CGA). [place] provide cues , steadying assist 3 The helper provides less than half the effort to complete the activity 2 The helper provides more than half the effort to complete the activity 1 Dependent. The helper does all the effort to complete an activity 7 Patient refused to complete or attempt activity 9 The patient did not perform the activity before the current illness or injury 88 Not attempted due to Medical conditions or safety concerns Treatments PT, Radiology Services Manager and Pt discuss discharge needs and what has been communicated to pt's family for discharging. Pt education over HEP as well as use of ice and pain management techniques. Pt is left supine in bed with all needs met at end of tx. Assessment Current Status: Fair Progress Pt is excited to discharge tomorrow and is motivated that when he gets home and WB status is furthered, pt will improve quickly. PT continues to have to remind pt of keeping WB status until Dr states otherwise. PT Short Term Goals Short Term Goals Time Frame: December 22, 2016 Transfers (B,C,W/C) (FIM): 4 Gait (FIM): 1 Gait Distance Comment: 20' Gait Level of Assist: 4 Gait Assistive Device: FWW Wheelchair Distance: 150' PT Patient Office Rep Goals Patient Office Rep Goals PT Patient Office Rep Goals Time Frame: January 05, 2017 Transfers (B,C,W/C) (FIM): 5 Sit to Lying (QC): 4 Lying-Sitting on Side/Bed(QC): 4 Sit to Stand (QC): 4 Rollin Roll Left to Right (QC): 4 Chair/Gmo-bu-Okdkt Xfer(QC): 4 Car Transfer (QC): 3 Gait (FIM): 1 Distance: 30' Walk 10 feet (QC): 4 Walk 10ft-Uneven Surface(QC): 88 Walk 50ft with 2 Turns (QC): 88 Walk 150 ft (QC): 88 Gait Level of Assist: 4 (CGA) Gait Assistive Device: FWW Stairs (FIM): 1 # of Steps: 1 1 Step (curb) (QC): 4 4 Steps (QC): 88 12 Steps (QC): 88 Stairs Level Of Assist: 4 Picking up an Object (QC): 88 PT Plan Problem List Problem List: Activity Tolerance, Functional Strength, Safety, Balance, Gait, Transfer Treatment/Plan Treatment Plan: Continue Plan of Care Treatment Plan: Bed Mobility, Education, Functional Activity Rima, Functional Strength, Group Therapy, Gait, Safety, Therapeutic Exercise, Transfers Treatment Duration: January 05, 2017 Visits Per Week: 10-11 Minutes/Day (M-F): 60-90 Minutes/Day (Sat/Chaves): 15-30 Safety Risks/Education Patient Education: Transfer Techniques, Reviewed Precautions, Reviewed Use of Ice, Correct Positioning, Safety Issues Teaching Recipient: Patient Teaching Methods: Discussion Response to Teaching: Verbalize Understanding Time/GCodes Time In: 1430 Time Out: 1500 Total Billed Treatment Time: 30 Total Billed Treatment visit, FA X2 (30m) CLAUDINE SCHROEDER PTA December 27, 2016 16:17
[2016-12-27 18:38] VITALS: BP 110/69
[2016-12-27] MEDS: MIRTAZAPINE 15 MG (REMERON) TAB PO SCH (20:55)
[2016-12-27] MEDS: SERTRALINE 50 MG (ZOLOFT) TABLET PO SCH (20:55)
[2016-12-28] MEDS: HYDROcodone/APAP 5 MG/325 MG (LORTAB) TAB PO PRN (04:52)
[2016-12-28 05:39] VITALS: BP 132/81
[2016-12-28] MEDS: FERROUS SULF 325 MG (IRON) TAB PO SCH ×2 (06:05→12:29)
[2016-12-28] MEDS: THIAMINE 100 MG (VITAMIN B-1) TAB PO SCH (06:05)
[2016-12-28] MEDS: LEVOTHYROXINE 25 MCG (LEVOTHROID) TAB PO SCH (06:05)
[2016-12-28] MEDS: FOLIC ACID 1 MG TAB PO SCH (06:05)
[2016-12-28] MEDS: MULTIVIT W/MINERALS TAB (THERAGRAN M) PO SCH (06:05)
[2016-12-28] MEDS: PANTOPRAZOLE 40 MG (PROTONIX) TAB PO SCH (06:05)
[2016-12-28] MEDS: LIPASE/AMYLASE/PROTEASE (PANCRELIPASE) 5,000 UNITS CAP PO SCH ×2 (06:06→12:29)
[2016-12-28] MEDS: LEVOTHYROXINE 150 MCG (LEVOTHROID) TAB PO SCH (06:06)
[2016-12-28] MEDS: LACTOBACILLUS Acidoph/Bulgar (LACTINEX/FLORANEX) TAB PO SCH ×2 (06:06→12:29)
--- NOTE | 2016-12-28 08:38 | Progress Note (SOAP) ---
Subjective Subjective/Events-last exam Hepatitis C. Confusion is better. Patient more alert. Dermatitis. Patient voices no complaints Objective Exam Vital Signs Date Time Temp Pulse Resp B/P (MAP) Pulse Ox O2 Delivery O2 Flow Rate FiO2 12/28/16 05:39 97.7 77 16 132/81 97 12/27/16 18:38 97.8 76 16 110/69 97 I & O 12/28/16 07:00 Intake Total 1057 ml Output Total 1700 ml Balance -643 ml Capillary Refill : General Appearance: No Apparent Distress, Thin Assessment/Plan Assessment/Plan Assess & Plan/Chief Complaint Confusion. Hepatitis C. Right leg pain. . 12/19/16. Confusion. Hepatitis C. Right leg pain. Patient to have psych evaluate today. . 12/20/16. Hepatitis C. Debility. Less confusion today. Patient refused psych evaluation. . 12/21/16. Confusion is better. blisters his right leg and back has his diaper on. Patient weak. . 12/22/16.. Patient still has confusion. debility. Patient working progress. . 12/23/16. Confusion. Patient states he's in [facility] area Patient did not sleep good last night. Rash in groin improving. . 12/26/16. Confusion. Hepatitis C. Shingles. . 12/27/16. Hepatitis C. Confusion is better. Rashes doing better. Patient in the right direction. . 12/28/16. Hepatitis C. Confusion that her. Rash area Patient to be discharged today Clinical Quality Measures DVT/VTE Risk/Contraindication: Risk Factor Score Per Nursin RFS Level Per Nursing on Admit: 4+=Very High KUSHAL CRAVEN DO December 28, 2016 08:38
[2016-12-28] MEDS: ASPIRIN 81 MG CHEW (CHILDREN'S ASA) PO SCH (08:39)
[2016-12-28] MEDS: HYDROXYCHLOROQUINE 200 MG (PLAQUENIL) TAB PO SCH (08:39)
[2016-12-28] MEDS: SENNA W/DOCUSATE (SENOKOT S) TABLET PO SCH (08:39)
[2016-12-28] MEDS: DRONABINOL 2.5 MG (MARINOL) CAP PO SCH (08:39)
[2016-12-28] MEDS: TRIAMCINOLONE 0.1% CR (KENALOG) 15 GM TUBE TOP SCH ×2 (08:40→14:01)
--- NOTE | 2016-12-28 08:52 | PM & R (SOAP) Progress Note ---
Subjective Subjective/Events-last exam Patient was seen in his room this AM Discussed case with SW yesterday Discharge has been moved up to today Patient will go home with Family and HHC [place] Will have f/u with PCP there and DR Adenike Dodge at [facility] Objective Exam Last Set of Vital Signs Vital Signs Date Time Temp Pulse Resp B/P (MAP) Pulse Ox O2 Delivery O2 Flow Rate FiO2 12/28/16 05:39 97.7 77 16 132/81 97 12/22/16 05:00 Room Air Capillary Refill : I&O Intake and Output 12/28/16 00:00 Intake Total 1517 ml Output Total 2100 ml Balance -583 ml Intake Oral 1517 ml Output Urine Total 2100 ml # Voids 1 # Bowel Movements 1 General: Alert, Cooperative, No Acute Distress, Other (Speech therapy reports cognitively improving) HEENT: Atraumatic, PERRLA, EOMI, Mucous Memb Moist/[place] Neck: Supple, No JVD Lungs: Clear to Auscultation Heart: Regular Rate Abdomen: Normal Bowel Sounds, Soft, No Tenderness Extremities: Other (Knee immobilizer rt leg) Skin: Other (blisters rt anterior thigh improving) Neuro: Other (Generalized weakness) Results Lab Laboratory Tests 12/25/16 16:02: Glucometer 108 12/26/16 06:33: Glucometer 136H 12/26/16 09:31: Hemoglobin A1c 4.3L Assessment/Plan Assessment Rt Tibial plateua frx s/p fall managed with TTWB RLE and knee immobilizer with breakthough pain Contact dermatitis with Blisters rt thigh being treated with topical care-much improved RA on meds No evidence of DM with normal Rimf8f-Dami d/c accuchecks Constipation meds adjusted Plan Discharge today to home with family and HHC Discussed case with DR pederson F/U with PCP in [place] as well as ortho in [place] re advancing WBS RLE See orders Current meds and therapy notes reviewed ARCHANA MAGAÑA MD December 28, 2016 08:52
[2016-12-28] MEDS ORDERED: FOLI1TAB24 PO (08:59)
[2016-12-28] MEDS ORDERED: THIA100T7 PO (08:59)
[2016-12-28] MEDS ORDERED: Multivitamins/Minerals Therap PO (08:59)
[2016-12-28] MEDS ORDERED: TR1C15 TOP (08:59)
[2016-12-28] MEDS ORDERED: SENN-20 PO (08:59)
[2016-12-28] MEDS ORDERED: HYDR-3812 PO (08:59)
--- NOTE | 2016-12-28 09:47 | Therapy Team Discharge Summary ---
Therapy Discharge Summary Discharge Recommendations Date of Discharge 12/28/16 Therapy D/C Recommendations: Home w/ Family Support, [place] (TCU/NH) Physical Therapy This patient was seen by skilled PT services post tibial plateau fracture for functional transfer and mobility training. Pt is TTWB and has had difficulty maintaining the WB status throughout the course of care. Pt has had bouts of confusion, pain, and nausea that have limited functional progress as well. He had an outbreak of blisters on his leg that was identified by the physician as contact dermatitis--which was painful for a bit and limited participation. Upon admission, he required max assist with transfers, ambulated 5 ft with FWW TTWB with min assist. Treatment consisted of LE strengthening, pain management , functional act tolerance training, transfers, gait and wheelchair mobility. At discharge, he requires min assist with transfer, amb 50 ft with FWW with min assist and was SBA with wheelchair mobility. He tends to present with a forward head with it turned down, appearing to fatigue and have difficulty holding it up. This has improved somewhat, but not fully. He has also experienced bouts of confusion that may hinder functional gains. He did make functional gains but continues to need assist with all mobility. He will benefit from continued skilled therapy intervention upon discharge to continue to improve functional strength and mobility. DC PT PT Fdc Goals Fdc Goals PT Fdc Goals Time Frame: January 05, 2017 Transfers (B,C,W/C) (FIM): 5 (unmet; min assist with some portions) Roll Left to Right (QC): 4 (met) Sit to Lying (QC): 4 (met) Lying-Sitting on Side/Bed(QC): 4 (met) Sit to Stand (QC): 4 (met) Chair/Mzm-qa-Wusnw Xfer(QC): 4 (met) Car Transfer (QC): 3 (NT) Gait (FIM): 1 (exceeed; scored 2) Distance: 30' Walk 10 feet (QC): 4 (met) Walk 10ft-Uneven Surface(QC): 88 Walk 50ft with 2 Turns (QC): 88 Walk 150 ft (QC): 88 Gait Level of Assist: 4 (CGA) Gait Assistive Device: FWW Stairs (FIM): 1 (NT) # of Steps: 1 1 Step (curb) (QC): 4 (NT) 4 Steps (QC): 88 12 Steps (QC): 88 Stairs Level Of Assist: 4 Picking up an Object (QC): 88 OT Fdc Goals Fdc Goals Time Frame: January 05, 2017 Eating (FIM): 6 Eating (QC): 6 Oral Hygiene (QC): 6 Grooming(FIM): 6 Bathing(FIM): 5 Shower/Bathe Self (QC): 5 Upper Body Dressing(FIM): 6 Upper Body Dressing (QC): 6 Lower Body Dressing(FIM): 6 Lower Body Dressing (QC): 6 On/Off Footwear (QC): 6 Toileting(FIM): 6 Toileting Hygiene (QC): 6 Toilet/Commode Transfer(FIM): 6 Toilet/Commode Transfer (QC): 6 Shower Transfer(FIM): 5 Comprehension(FIM): 4 Expression (FIM): 4 Social Interaction(FIM): 4 Problem Solving(FIM): 3 Memory(FIM): 3 Additional Goals: 2-Verbalize Understanding, 3-ImproveStrength/Rima 1=Demonstrate adherence to instructed precautions during ADL tasks. 2=Patient will verbalize/demonstrate understanding of assistive devices/ modifications for ADL. 3=Patient will improve strength/tolerance for activity to enable patient to perform ADL's. Speech Podiatric Foot And Ankle Specialist Goals Podiatric Foot And Ankle Specialist Goals 1. The patient will demonstrate increased cognitive skills for improved safety and function with ADL's in the least restrictive setting. Time Frame: Three Weeks Comprehension: 4 Expression: 4 Social Interaction: 4 Problem Solvin Memory: 3 JULIA MORGAN PT December 28, 2016 09:47
--- NOTE | 2016-12-28 13:16 | Occupational Ther Daily Note ---
OT Current Status-Daily Note Subjective Pt seen in room, agreeable to OT. Mental Status/Objective Functional [place] Measure 0=Not Assessed/NA 4=Minimal Assistance 1=Total Assistance 5=Supervision or Setup 2=Maximal Assistance 6=Modified [place] 3=Moderate Assistance 7=Complete [place] ADL-Treatment Functional [place] Measure 0=Not Assessed/NA 4=Minimal Assistance 1=Total Assistance 5=Supervision or Setup 2=Maximal Assistance 6=Modified [place] 3=Moderate Assistance 7=Complete IndependenceIRFPAI Quality Coding Scale 6 Independent with activity with or without an assistive device 5 Patient requires set up or clean up by helper. Patient completes activity by themselves 4 Supervision or touching assist (CGA). [place] provide cues , steadying assist 3 The helper provides less than half the effort to complete the activity 2 The helper provides more than half the effort to complete the activity 1 Dependent. The helper does all the effort to complete an activity 7 Patient refused to complete or attempt activity 9 The patient did not perform the activity before the current illness or injury 88 Not attempted due to Medical conditions or safety concerns Other Treatment AROM with bilat UEs, with no additional resistance, due to UE weakness and decreased range. To help strengthen arms to help with ADLs and transfers. Education OT Patient Education: Exercise program OT Short Term Goals Short Term Goals Time Frame: December 29, 2016 Upper Body Dressing(FIM): 5 Lower Body Dressing(FIM): 4 Toileting(FIM): 4 Transfers (B,C,W/C) (FIM): 4 Toilet/Commode Transfer(FIM): 4 Additional Short Term Goals: 2-Verbalize Understanding, 3-ImproveStrength/Rima 1=Demonstrate adherence to instructed precautions during ADL tasks. 2=Patient will verbalize/demonstrate understanding of assistive devices/ modifications for ADL. 3=Patient will improve strength/tolerance for activity to enable patient to perform ADL's. OT Skilled Nursing Goals Skilled Nursing Goals Time Frame: January 05, 2017 Eating (FIM): 6 Eating (QC): 6 Groomin Oral Hygiene (QC): 6 Bathing(FIM): 5 Shower/Bathe Self (QC): 5 Upper Body Dressing(FIM): 6 Upper Body Dressing (QC): 6 Lower Body Dressing(FIM): 6 Lower Body Dressing (QC): 6 On/Off Footwear (QC): 6 Toileting(FIM): 6 Toileting Hygiene (QC): 6 Toilet/Commode Transfer(FIM): 6 Toilet/Commode Transfer (QC): 6 Shower Transfer(FIM): 5 Comprehension(FIM): 4 Expression (FIM): 4 Social Interaction(FIM): 4 Problem Solving(FIM): 3 Memory(FIM): 3 Additional Goals: 2-Verbalize Understanding, 3-ImproveStrength/Rima 1=Demonstrate adherence to instructed precautions during ADL tasks. 2=Patient will verbalize/demonstrate understanding of assistive devices/ modifications for ADL. 3=Patient will improve strength/tolerance for activity to enable patient to perform ADL's. OT Education/Plan Problem List/Assessment Pt would benefit from skilled OT to increase his independence in basic self care to allow him to safely return home to live with family. Discharge Recommendations Plan/Recommendations: Continue POC Treatment Plan/Plan of Care Patient would benefit from OT for education, treatment and training to promote independence in ADL's, mobility, safety and/or upper extremity function for ADL' s. Plan of Care: ADL Retraining, Functional Mobility, Group Exercise/Act as Ind ( education, exercise, socialization, activity tolerance, memory, problem solving) , UE Funct Exercise/Act, UE Neuromus Re-Ed/Coord Treatment Duration: January 05, 2017 Visits Per Week: 10-11 Minutes/Day (M-F): 75-90 Minutes/Day (Sat/Chaves): PRN Agreement: Yes Rehab Potential: Fair Time/GCodes Start Time: 14:15 Stop Time: 14:30 Total Time Billed (hr/min): 15 Billed Treatment Time visit, 15 minutes exercise late entry for 12/16/16 CHRYSTAL FREEMAN OT December 28, 2016 13:16
--- NOTE | 2016-12-28 13:32 | Therapy Team Discharge Summary ---
Therapy Discharge Summary Discharge Recommendations Date of Discharge Therapy D/C Recommendations: Home w/ Family Support, Occupational Therapy Home Care, [facility] ([facility]) Occupational Therapy Pt was seen for skilled OT to increase his independence in basic self care to allow him to return home safely after recent hospitalization and R tibial fx. His functional abilities were limited by confusion, impulsivity and decreased ability to maintain WB restrictions with FWW, as well as significant fatigue. On admission he needed mod assist for toileting, toilet transfers, lower body dressing; min assist for grooming, supervision for bathing and eating. By discharge his confusion had cleared up but he still required CGA assistance with the standing components of ADLs and was able to walk no more that 10-15 feet CGA, FWW to the bathroom with OT for showering (he was too fatigued after shower to walk back to bed). He needed CGA, FWW for lower body dressing and toilet transfers and mod assist with toileting for hygiene (BSC). He could feed himself but needed cues to initiate eating. Grooming was mod I at w/c level. Equipment used included FWW, w/c, shower bench and BSC. He was able to take R knee brace off but unable to put it back on. See tx plan for goals met. Pt to discharge to home today. PT Proof Machine Operator Supervisor Goals Proof Machine Operator Supervisor Goals PT Assisted Goals Time Frame: January 05, 2017 Transfers (B,C,W/C) (FIM): 5 (unmet; min assist with some portions) Roll Left to Right (QC): 4 (met) Sit to Lying (QC): 4 (met) Lying-Sitting on Side/Bed(QC): 4 (met) Sit to Stand (QC): 4 (met) Chair/Pkm-hx-Krhka Xfer(QC): 4 (met) Car Transfer (QC): 3 (NT) Gait (FIM): 1 (exceeed; scored 2) Distance: 30' Walk 10 feet (QC): 4 (met) Walk 10ft-Uneven Surface(QC): 88 Walk 50ft with 2 Turns (QC): 88 Walk 150 ft (QC): 88 Gait Level of Assist: 4 (CGA) Gait Assistive Device: FWW Stairs (FIM): 1 (NT) # of Steps: 1 1 Step (curb) (QC): 4 (NT) 4 Steps (QC): 88 12 Steps (QC): 88 Stairs Level Of Assist: 4 Picking up an Object (QC): 88 OT Assisted Goals Assisted Goals Time Frame: January 05, 2017 Eating (FIM): 6 (not met 5-16-17) Eating (QC): 6 (not met 5-16-17) Oral Hygiene (QC): 6 (met 5-16-17) Grooming(FIM): 6 (met 5-16-17) Bathing(FIM): 5 (met 5-16-17) Shower/Bathe Self (QC): 5 (not met 5-16-17) Upper Body Dressing(FIM): 6 (not met 5-16-17) Upper Body Dressing (QC): 6 (not met 5-16-17) Lower Body Dressing(FIM): 6 (not met 5-16-17) Lower Body Dressing (QC): 6 (not met 5-16-17) On/Off Footwear (QC): 6 (not met 5-16-17) Toileting(FIM): 6 (not met 5-16-17) Toileting Hygiene (QC): 6 (not met 5-16-17) Toilet/Commode Transfer(FIM): 6 (not met 5-16-17) Toilet/Commode Transfer (QC): 6 (not met 5-16-17) Shower Transfer(FIM): 5 (not met 5-16-17) Comprehension(FIM): 4 Expression (FIM): 4 Social Interaction(FIM): 4 Problem Solving(FIM): 3 Memory(FIM): 3 Additional Goals: 2-Verbalize Understanding, 3-ImproveStrength/Rima 1=Demonstrate adherence to instructed precautions during ADL tasks. 2=Patient will verbalize/demonstrate understanding of assistive devices/ modifications for ADL. 3=Patient will improve strength/tolerance for activity to enable patient to perform ADL's. Speech Assisted Goals Proof Machine Operator Supervisor Goals 1. The patient will demonstrate increased cognitive skills for improved safety and function with ADL's in the least restrictive setting. Time Frame: Three Weeks Comprehension: 4 Expression: 4 Social Interaction: 4 Problem Solvin Memory: 3 CHRYSTAL FREEMAN OT December 28, 2016 13:32
[2016-12-28 15:35] VITALS: BP 132/81
== END 2016-12-28 15:35 | disposition home health service (06) | DRG 560 ==
LOC: ENPENDDIS 12-28 14:00
PROVIDERS: ADMIT Physical Medicine & Rehabilitation; ATTEND Physical Medicine & Rehabilitation
DX: S82.144D Nondisplaced bicondylar fracture of right tibia, subsequent encounter for closed fracture with routine healing (principal); M25.461 Effusion, right knee; R26.81 Unsteadiness on feet; R53.1 Weakness; R41.0 Disorientation, unspecified; D64.9 Anemia, unspecified; B19.20 Unspecified viral hepatitis C without hepatic coma; K86.1 Other chronic pancreatitis; E11.9 Type 2 diabetes mellitus without complications; E03.9 Hypothyroidism, unspecified; M06.9 Rheumatoid arthritis, unspecified; F32.9 Major depressive disorder, single episode, unspecified; R19.7 Diarrhea, unspecified; L25.9 Unspecified contact dermatitis, unspecified cause; K59.00 Constipation, unspecified; W19.XXXD Unspecified fall, subsequent encounter
CPT/HCPCS: 36415; 80048; 80053; 82962; 83036; 85027